=== PATIENT | male | born 1955 | race Caucasian/White ===

== ENCOUNTER → 2017-05-17 | Outpatient (CLI) | payer BC ==
--- NOTE | 2017-05-17 10:25 | XR ---
EXAMINATION TYPE: XR shoulder complete BILAT DATE OF EXAM: 05/17/2017 COMPARISON: NONE HISTORY: Pain TECHNIQUE: Three views are submitted bilaterally. FINDINGS: The osseous structures are intact. There is no acute fracture or dislocation. The AC joint is maint ained. Calcified granuloma right upper lobe. Mild narrowing of the glenohumeral joint bilaterally. IMPRESSION: 1. Arthropathy of the glenohumeral joint bilaterally consider follow-up MRI. 2. Right upper lobe calcified granuloma..
== END | disposition home or self-care (01) ==
LOC: RADXRYALE 10:02
PROVIDERS: ATTEND Family Medicine
DX: M12.9 Arthropathy, unspecified (principal)

== ENCOUNTER 2017-11-04 18:05 | Emergency (ER) | payer BC ==
--- NOTE | 2017-11-04 19:36 | ED ---
General Adult HPI - General Chief complaint: Skin/Abscess/Foreign Body Stated complaint: abcess on elbow Time Seen by Provider: 11/04/17 19:26 Source: patient, family, RN notes reviewed Mode of arrival: ambulatory Limitations: no limitations - History of Present Illness Initial comments: 62-year-old male presents to the emergency department for a chief complaint of right elbow pain 2 days. Patient noticed the pain yesterday and denies any injuries. Patient states it is warm and red, so he became concerned. Patient denies any fevers or chills at home. Patient denies this ever happening before. Patient has no other complaints at this time including shortness of breath, chest pain, abdominal pain, nausea or vomiting, headache, or visual changes. - Related Data Home Medications Medication Instructions Recorded Confirmed Acetaminophen [Tylenol] 2,000 mg PO Q4-6H PRN 11/04/17 11/04/17 Celecoxib [CeleBREX] 100 mg PO BID 11/04/17 11/04/17 Pravastatin Sodium [Pravachol] 40 mg PO DAILY 11/04/17 11/04/17 amLODIPine BESYLATE/BENAZEPRIL 1 cap PO DAILY 11/04/17 11/04/17 [Lotrel 10-20 mg Capsule] Previous Rx's Medication Instructions Recorded Amoxicillin/Potassium Clav 1 tab PO Q12HR #20 tab 11/04/17 [Augmentin Xr 1,000-62.5 Tab] Allergies Allergy/AdvReac Type Severity Reaction Status Date / Time No Known Allergies Allergy Verified 11/04/17 20:03 Review of Systems ROS Statement: Those systems with pertinent positive or pertinent negative responses have been documented in the HPI. ROS Other: All systems not noted in ROS Statement are negative. Past Medical History Past Medical History: Hyperlipidemia, Hypertension, Osteoarthritis (OA) History of Any Multi-Drug Resistant Organisms: None Reported Past Surgical History: Hernia Repair Past Psychological History: No Psychological Hx Reported Smoking Status: Former smoker Past Alcohol Use History: Occasional Past Drug Use History: None Reported General Exam Limitations: no limitations General appearance: alert, in no apparent distress Head exam: Present: atraumatic, normocephalic, normal inspection Eye exam: Present: normal appearance, PERRL, EOMI. Absent: scleral icterus, conjunctival injection, periorbital swelling ENT exam: Present: normal exam, mucous membranes moist Neck exam: Present: normal inspection, full ROM. Absent: tenderness, meningismus, lymphadenopathy Respiratory exam: Present: normal lung sounds bilaterally. Absent: respiratory distress, wheezes, rales, rhonchi, stridor Cardiovascular Exam: Present: regular rate, normal rhythm, normal heart sounds. Absent: systolic murmur, diastolic murmur, rubs, gallop, clicks Extremities exam: Present: full ROM (Full range of motion of the right elbow), tenderness (Tenderness to the olecranon of the right elbow. ), normal capillary refill (Refill less than 2 seconds in the right upper extremity and radial pulse 2+), joint swelling (Patient has mild swelling over the olecranon of the right elbow, with erythema about 4 cm x 4 cm), other (Sensation intact in the right upper extremity) Course Vital Signs 11/04/17 18:35 Temperature 98.8 F Pulse Rate 76 Respiratory 16 Rate Blood Pressure 136/82 O2 Sat by Pulse 98 Oximetry Medical Decision Making - Medical Decision Making 62-year-old male presents to the emergency determine for erythematous right elbow 2 days. Patient noticed it yesterday morning. He states it is warm to touch. On exam patient does have a small break in the skin over the right elbow with surrounding erythema and warmth. X-ray did show soft tissue swelling could not exclude bursitis. I did attempt to aspirate and no fluid was able to be obtained for culture. Patient likely has a cellulitis. Patient will be started on Augmentin. He does have an appointment with primary care in the next few days which he will follow-up at. He will return if he has any worsening symptoms such as spreading redness streaking redness or fevers which he agrees with. Disposition Clinical Impression: Cellulitis, Bursitis Disposition: HOME SELF-CARE Condition: Good Instructions: Cellulitis (ED) Additional Instructions: Please take antibiotic as directed. Please follow-up with primary care in 1-2 days. Return to the emergency department if you have any worsening symptoms such as spreading redness, streaking redness, fever, or increased pain. Prescriptions: Amoxicillin/Potassium Clav [Augmentin Xr 1,000-62.5 Tab] 1 tab PO Q12HR #20 tab Is patient prescribed a controlled substance at d/c from ED?: No Referrals: Moreno Vasques DO [Primary Care Provider] - 1-2 days Time of Disposition: 20:54
--- NOTE | 2017-11-04 20:00 | XR ---
EXAMINATION TYPE: XR elbow complete RT DATE OF EXAM: 11/04/2017 COMPARISON: NONE HISTORY: Elbow pain TECHNIQUE: 3 views FINDINGS: I see no fracture nor dislocation. There are soft tissue swelling over the olecranon proces s of the ulna. There is no sign of joint effusion. IMPRESSION: Soft tissue swelling. This could relate to olecranon bursitis.
[2017-11-04] MEDS ORDERED: AMOXIC-POT CLAV 875MG STARTER 2 EACH TABLET PO STA (20:49)
[2017-11-04 21:04] VITALS: BP 127/85; PULSE 92; RESP 20; TEMP 99
== END 2017-11-04 21:04 | disposition home or self-care (01) ==
LOC: EC 18:05
DX: L03.113 Cellulitis of right upper limb (principal); M70.32 Other bursitis of elbow, left elbow; E78.5 Hyperlipidemia, unspecified; I10 Essential (primary) hypertension; M19.90 Unspecified osteoarthritis, unspecified site; Z87.891 Personal history of nicotine dependence; Z79.1 Long term (current) use of non-steroidal anti-inflammatories (NSAID); Z79.899 Other long term (current) drug therapy
CPT/HCPCS: 10160; 99283

== ENCOUNTER 2018-10-21 13:17 | Day surgery (SDC) | payer BC ==
[2018-10-19 17:46] VITALS: BMI 26.4
[~2018-10-21 13:17] MED LIST: LACTATED RINGERS 1,000 ML IV SCH
[2018-10-21 13:39] VITALS: RESP 16; TEMP 97.6
[2018-10-21] MEDS ORDERED: LIDOCAINE 1% 20 ML VIAL (10MG/ML) FOR IV START INTRADERMA ONE (13:42)
[2018-10-21] MEDS ORDERED: PROPOFOL 10 MG/ML 20 ML VIAL IV ONE (14:25)
--- NOTE | 2018-10-21 14:48 | P.PCN ---
Date of Procedure: 10/21/18 Procedure(s) Performed: BRIEF HISTORY: Patient is a 63-year-old pleasant, male scheduled for an elective colonoscopy as a part of screening for colorectal neoplasia. PROCEDURE PERFORMED: Colonoscopy with snare polypectomy. PREOPERATIVE DIAGNOSIS: Screening for colon cancer. IV sedation per Anesthesia. PROCEDURE: After informed consent was obtained, the patient, was brought into the endoscopy unit. IV sedation was administered by Anesthesia under continuous monitoring. Digital rectal examination was normal. Initially the Olympus CF-160 flexible video colonoscope was then inserted in the rectum, gradually advanced into the cecum without any difficulty. Careful examination was performed as the scope was gradually being withdrawn. Ileocecal valve and the appendiceal orifice were visualized and appeared normal. Prep was excellent. Mucosa of the cecum, ascending colon, transverse colon, descending colon, appeared normal. In the sigmoid colon there was a 1.5 cm pedunculated polyp removed by snare polypectomy. There was another 1 cm rectosigmoid polyp that was removed by snare polypectomy. Rest of the sigmoid colon, and rectum appeared normal. Retroflexion was performed in the rectum and no lesions were seen. The patient tolerated the procedure well. IMPRESSION: 1.5 cm pedunculated sigmoid colon polyp serous posterior polypectomy 1 cm pedunculated rectosigmoid polyp status post snare polypectomy RECOMMENDATIONS: Findings of this examination were discussed with the patient a s well as his family. He was advised to follow with the biopsy results. If the biopsy shows an adenoma, he can have a repeat colonoscopy in 3 years.
[2018-10-21 15:23] VITALS: BP 132/89; PULSE 89
== END 2018-10-21 15:25 | disposition home or self-care (01) ==
LOC: ORWHC2ENDO 13:17
PROVIDERS: ATTEND Internal Medicine Gastroenterology
DX: Z12.11 Encounter for screening for malignant neoplasm of colon (principal); D12.5 Benign neoplasm of sigmoid colon; D12.8 Benign neoplasm of rectum; I10 Essential (primary) hypertension; E78.5 Hyperlipidemia, unspecified; M19.90 Unspecified osteoarthritis, unspecified site; Z87.891 Personal history of nicotine dependence; Z79.899 Other long term (current) drug therapy
CPT/HCPCS: 45385; 88305; J2704

== ENCOUNTER → 2022-04-09 | Outpatient (CLI) | payer MEDICARE ==
--- NOTE | 2022-04-09 11:42 | US ---
EXAMINATION TYPE: US abdomen complete DATE OF EXAM: 04/09/2022 COMPARISON: NONE CLINICAL HISTORY: R74.01 elevated liver levels. Elevated liver enzymes. TECHNIQUE: Multiple sonographic images of the abdomen are obtained. FINDINGS: EXAM MEASUREMENTS: Liver Length: 14.2 cm Gallbladder Wall: .3 cm CBD: .7 cm Spleen: 11.6 cm Right Kidney: 9.3 x 5.4 x 4.2 cm Left Kidney: 10.2 x 5.5 x 4.2 cm CARTON INSPECTOR NOTES: Pancreas: Obscured by bowel gas Liver: Increased attenuation Gallbladder: Low level echoes visualized question sludge. Evidence for sonographic Avila's sign: No CBD: wnl Spleen: wnl Right Kidney: wnl Left Kidney: Anechoic area present mid pole 2.0 x 2.1 x 2.2 cm. Upper IVC: wnl Abd Aorta: wnl The liver is homogenous. The intrahepatic portion of the IVC and proximal abdominal aorta are within normal limits. There is no evidence of cholelithiasis. Common bile duct is unremarkable. The visu alized portions of the pancreas are homogenous. The spleen is unremarkable. Kidneys are symmetric a nd free of hydronephrosis. No renal solid masses are seen. IMPRESSION: 1. Hepatic steatosis. 2. Biliary sludge. 3. Left renal parapelvic cyst.
== END | disposition home or self-care (01) ==
LOC: RADUSWWP 10:44
PROVIDERS: ATTEND Family Medicine
DX: K76.0 Fatty (change of) liver, not elsewhere classified (principal); N28.1 Cyst of kidney, acquired; K83.8 Other specified diseases of biliary tract; R74.01 Elevation of levels of liver transaminase levels
CPT/HCPCS: 76700

== ENCOUNTER → 2022-07-28 | Outpatient (CLI) | payer MEDICARE ==
--- NOTE | 2022-07-28 15:47 | XR ---
EXAMINATION TYPE: XR chest 2V DATE OF EXAM: 07/28/2022 COMPARISON: None HISTORY: 67-year-old male R051, C250 ACUTE COUGH, MALIGNANT NEOPLASM TECHNIQUE: Frontal and lateral views FINDINGS: The cardiomediastinal silhouette, aorta, and pulmonary vasculature are within normal limits. Some str jessica left basilar atelectasis. Otherwise, lungs and pleural spaces are clear. Tiny calcified granulom a periphery of the right upper lobe. IMPRESSION: No acute cardiopulmonary process.
== END | disposition home or self-care (01) ==
LOC: RADXRYALE 11:07
PROVIDERS: ATTEND Family Medicine
DX: C25.0 Malignant neoplasm of head of pancreas (principal); R05.1 Acute cough
CPT/HCPCS: 71046

== ENCOUNTER 2022-08-24 10:15 | Emergency (ER) | payer MEDICARE ==
[2022-08-24] MEDS ORDERED: ACETAMINOPHEN TAB 500 MG TAB PO STA (10:54)
[2022-08-24] MEDS ORDERED: SODIUM CHLORIDE 0.9% 1,000 ML IV STA (10:54)
--- NOTE | 2022-08-24 11:03 | ED ---
General Adult HPI - General Chief complaint: Fever Stated complaint: Fever Time Seen by Provider: 08/24/22 10:53 Source: patient, family, RN notes reviewed, old records reviewed Mode of arrival: ambulatory Limitations: no limitations - History of Present Illness Initial comments: 67-year-old male presents for evaluation of fever. Patient is currently on chemotherapy for pancreatic cancer. He's had fever over the past 24-48 hours. Patient denies upper respiratory symptoms. Denies abdominal pain. He's had some minimal diarrhea and minimal cough. Patient does not have a Mediport. - Related Data Home Medications Medication Instructions Recorded Confirmed Pravastatin Sodium [Pravachol] 40 mg PO HS 11/04/17 08/24/22 amLODIPine BESYLATE/BENAZEPRIL 1 cap PO DAILY 11/04/17 08/24/22 [Lotrel 10-20 mg Capsule] Previous Rx's Medication Instructions Recorded Cephalexin [Keflex] 500 mg PO QID 10 Days #40 cap 08/24/22 Allergies Allergy/AdvReac Type Severity Reaction Status Date / Time No Known Allergies Allergy Verified 08/24/22 12:18 Review of Systems ROS Statement: Those systems with pertinent positive or pertinent negative responses have been documented in the HPI. ROS Other: All systems not noted in ROS Statement are negative. Past Medical History Past Medical History: Cancer, Hyperlipidemia, Hypertension, Osteoarthritis (OA) Additional Past Medical History / Comment(s): torn bicep, positive cologard, pancreatic CA History of Any Multi-Drug Resistant Organisms: None Reported Past Surgical History: Hernia Repair, Tonsillectomy Past Anesthesia/Blood Transfusion Reactions: No Reported Reaction Past Psychological History: No Psychological Hx Reported Smoking Status: Never smoker Past Alcohol Use History: None Reported Past Drug Use History: None Reported - Past Family History Mother Family Medical History: No Reported History General Exam Limitations: no limitations General appearance: alert, in no apparent distress Head exam: Present: atraumatic, normocephalic Eye exam: Present: normal appearance, PERRL ENT exam: Present: normal exam Neck exam: Present: normal inspection. Absent: tenderness, meningismus Respiratory exam: Present: normal lung sounds bilaterally, respiratory distress Cardiovascular Exam: Present: regular rate, normal rhythm GI/Abdominal exam: Present: soft. Absent: distended, tenderness, guarding Extremities exam: Present: normal inspection, normal capillary refill. Absent: pedal edema Neurological exam: Present: alert, oriented X3, CN II-XII intact. Absent: motor sensory deficit Psychiatric exam: Present: normal affect, normal mood Skin exam: Present: warm, dry Course Vital Signs 08/24/22 08/24/22 08/24/22 10:38 12:20 13:05 Temperature 97.6 F 97.8 F 98.8 F Pulse Rate 103 H 86 Respiratory 18 17 Rate Blood Pressure 87/60 91/62 O2 Sat by Pulse 99 96 Oximetry 08/24/22 14:18 Temperature Pulse Rate 92 Respiratory 18 Rate Blood Pressure 94/67 O2 Sat by Pulse 98 Oximetry Medical Decision Making - Medical Decision Making Was pt. sent in by a medical professional or institution (, PA, BIOMEDICAL TECHNICIAN, urgent care, hospital, or [facility]...) When possible be specific @ -No Did you speak to anyone other than the patient for history (EMS, parent, family, police, friend...)? What history was obtained from this source @ -No Did you review nursing and triage notes (agree or disagree)? Why? @ -I reviewed and agree with nursing and triage notes Were old charts reviewed (outside hosp., previous admission, EMS record, old EKG, old radiological studies, urgent care reports/EKG's, [facility] records)? Report findings @ -No old charts were reviewed Differential Diagnosis (chest pain, altered mental status, abdominal pain women, abdominal pain men, vaginal bleeding, weakness, fever, dyspnea, syncope, headache, dizziness, GI bleed, back pain, seizure, CVA, palpatations, mental health, musculoskeletal)? @ Differential Fever: Pneumonia, viral URI, endocarditis, myocarditis, pericarditis, otitis, sinusitis, peritonsillar Abscess, retropharyngeal Abscess, epiglottitis, peritonitis, appendicitis, Jennie cystitis, diverticulitis, hepatitis, colitis, UTI, PID, TOA, pyelonephritis, prostatitis, epididymitis, meningitis, encephalitis, pulmonary embolism, CVA, thyroid storm, pancreatitis, adrenal crisis, cavernous sinus thrombosis, this is not meant to be an all-inclusive list. EKG interpreted by me (3pts min.). @ -As above X-rays interpreted by me (1pt min.). @ Chest x-ray negative for focal pneumonia CT interpreted by me (1pt min.). @ -None done U/S interpreted by me (1pt. min.). @ -None done What testing was considered but not performed or refused? (CT, X-rays, U/S, labs)? Why? @ -None What meds were considered but not given or refused? Why? @ -None Did you discuss the management of the patient with other professionals (professionals i.e. Dr., PA, BIOMEDICAL TECHNICIAN, lab, RT, psych nurse, director of social services, telephone maintainer, teacher, global chief creative officer, case management director)? Give summary @ -[Dr. Peralta Was smoking cessation discussed for >3mins.? @ -No Was critical care preformed (if so, how long)? @ -No Were there social determinants of health that impacted care today? How? (Andrew elessness, low income, unemployed, alcoholism, drug addiction, transportation, low edu. Level, literacy, decrease access to med. care, residential, rehab)? @ -No Was there de-escalation of care discussed even if they declined (Discuss DNR or withdrawal of care, Hospice)? DNR status @ -No What co-morbidities impacted this encounter? (DM, HTN, Smoking, COPD, CAD, Cancer, CVA, ARF, Chemo, Hep., AIDS, mental health diagnosis, sleep apnea, morbid obesity)? @ -[Pancreatic cancer on chemotherapy Was patient admitted / discharged? Hospital course, mention meds given and route, prescriptions, significant lab abnormalities, going to OR and other pertinent info. @ -67-year-old male presenting with fever of unknown origin on chemotherapy. Fever workup is initiated emergency department including CBC, CMP, urinalysis, viral panel, chest x-ray and blood cultures. Patient well-appearing afebrile upon arrival. He has a leukopenia without neutropenia. His viral panel is ne gative. Urinalysis is positive and urine culture is pending. Blood cultures pending. I did discuss case with Dr. Peralta who is familiar with the patient. Patient is eager for discharge and does not want wish to be admitted. Given that he is not neutropenic and that source is identified we will trial oral antibiotics. The patient was given ceftriaxone in the emergency department and will be started on Keflex awaiting culture results. His and he are given strict return parameters. Undiagnosed new problem with uncertain prognosis? @ -No Drug Therapy requiring intensive monitoring for toxicity (Heparin, Nitro, Insulin, Cardizem)? @ -No Were any procedures done? @ -No Diagnosis/symptom? @ -Fever, UTI Acute, or Chronic, or Acute on Chronic? @ -[Acute Uncomplicated (without systemic symptoms) or Complicated (systemic symptoms)? @ -default Side effects of treatment? @ -No Exacerbation, Progression, or Severe Exacerbation? @ -No Poses a threat to life or bodily function? How? (Chest pain, [place], [place], pneumonia, PE, COPD, DKA, ARF, appy, cholecystitis, CVA, Diverticulitis, Homicidal, Suicidal, threat to staff... and all critical care pts) @ -[Yes, progression to sepsis - Lab Data Result diagrams: 08/24/22 10:54 08/24/22 10:54 Lab Results 08/24/22 08/24/22 08/24/22 Range/Units 10:54 10:54 10:54 WBC 2.9 L (3.8-10.6) k/uL RBC 3.46 L (4.30-5.90) m/uL Hgb 11.3 L (13.0-17.5) gm/dL Hct 31.5 L (39.0-53.0) % MCV 91.0 (80.0-100.0) fL MCH 32.6 (25.0-35.0) pg MCHC 35.8 (31.0-37.0) g/dL RDW 13.8 (11.5-15.5) % Plt Count 123 L (150-450) k/uL MPV 8.2 Neutrophils % 72 % Lymphocytes % 13 % Monocytes % 9 % Eosinophils % 2 % Basophils % 1 % Neutrophils # 2.1 (1.3-7.7) k/uL Lymphocytes # 0.4 L (1.0-4.8) k/uL Monocytes # 0.3 (0-1.0) k/uL Eosinophils # 0.1 (0-0.7) k/uL Basophils # 0.0 (0-0.2) k/uL Poikilocytosis Slight Sodium 132 L (137-145) mmol/L Potassium 4.4 (3.5-5.1) mmol/L Chloride 105 (98-107) mmol/L Carbon Dioxide 18 L (22-30) mmol/L Anion Gap 9 mmol/L BUN 26 H (9-20) mg/dL Creatinine 0.98 (0.66-1.25) mg/dL Est GFR (CKD-EPI)AfAm >90 (>60 ml/min/1.73 sqM) Est GFR (CKD-EPI)NonAf 81 (>60 ml/min/1.73 sqM) Glucose 97 (74-99) mg/dL Plasma Lactic Acid Don 1.1 (0.7-2.0) mmol/L Calcium 8.8 (8.4-10.2) mg/dL Total Bilirubin 0.9 (0.2-1.3) mg/dL AST 68 H (17-59) U/L ALT 89 H (4-49) U/L Alkaline Phosphatase 94 (38-126) U/L Total Protein 6.1 L (6.3-8.2) g/dL Albumin 3.4 L (3.5-5.0) g/dL Urine Color Urine Appearance (Clear) Urine pH (5.0-8.0) Ur Specific Bixby (1.001-1.035) Urine Protein (Negative) Urine Glucose (UA) (Negative) Urine Ketones (Negative) Urine Blood (Negative) Urine Nitrite (Negative) Urine Bilirubin (Negative) Urine Urobilinogen (<2.0) mg/dL Ur Leukocyte Esterase (Negative) Urine WBC (0-5) /hpf Ur Squamous Epith Cells (0-4) /hpf Urine Bacteria (None) /hpf Urine Mucus (None) /hpf Influenza Type A (PCR) (Not Detectd) Influenza Type B (PCR) (Not Detectd) RSV (PCR) (Not Detectd) SARS-CoV-2 (PCR) (Not Detectd) 08/24/22 08/24/22 Range/Units 11:27 11:27 WBC (3.8-10.6) k/uL RBC (4.30-5.90) m/uL Hgb (13.0-17.5) gm/dL Hct (39.0-53.0) % MCV (80.0-100.0) fL MCH (25.0-35.0) pg MCHC (31.0-37.0) g/dL RDW (11.5-15.5) % Plt Count (150-450) k/uL MPV Neutrophils % % Lymphocytes % % Monocytes % % Eosinophils % % Basophils % % Neutrophils # (1.3-7.7) k/uL Lymphocytes # (1.0-4.8) k/uL Monocytes # (0-1.0) k/uL Eosinophils # (0-0.7) k/uL Basophils # (0-0.2) k/uL Poikilocytosis Sodium (137-145) mmol/L Potassium (3.5-5.1) mmol/L Chloride (98-107) mmol/L Carbon Dioxide (22-30) mmol/L Anion Gap mmol/L BUN (9-20) mg/dL Creatinine (0.66-1.25) mg/dL Est GFR (CKD-EPI)AfAm (>60 ml/min/1.73 sqM) Est GFR (CKD-EPI)NonAf (>60 ml/min/1.73 sqM) Glucose (74-99) mg/dL Plasma Lactic Acid Don (0.7-2.0) mmol/L Calcium (8.4-10.2) mg/dL Total Bilirubin (0.2-1.3) mg/dL AST (17-59) U/L ALT (4-49) U/L Alkaline Phosphatase (38-126) U/L Total Protein (6.3-8.2) g/dL Albumin (3.5-5.0) g/dL Urine Color Yellow Urine Appearance Cloudy (Clear) Urine pH 5.5 (5.0-8.0) Ur Specific [place] 1.030 (1.001-1.035) Urine Protein Trace H (Negative) Urine Glucose (UA) Negative (Negative) Urine Ketones Negative (Negative) Urine Blood Negative (Negative) Urine Nitrite Negative (Negative) Urine Bilirubin Negative (Negative) Urine Urobilinogen <2.0 (<2.0) mg/dL Ur Leukocyte Esterase Moderate H (Negative) Urine WBC 14 H (0-5) /hpf Ur Squamous Epith Cells 2 (0-4) /hpf Urine Bacteria Many H (None) /hpf Urine Mucus Many H (None) /hpf Influenza Type A (PCR) Not Detected (Not Detectd) Influenza Type B (PCR) Not Detected (Not Detectd) RSV (PCR) Not Detected (Not Detectd) SARS-CoV-2 (PCR) Not Detected (Not Detectd) Disposition Clinical Impression: Fever, UTI (urinary tract infection) Disposition: HOME SELF-CARE Condition: Fair Instructions (If sedation given, give patient instructions): Urinary Tract Infection in Men (ED), Fever in Adults (ED) Additional Instructions: Please follow up close with Dr. Peralta, please return with any worsening or changing symptoms Prescriptions: Cephalexin [Keflex] 500 mg PO QID 10 Days #40 cap Is patient prescribed a controlled substance at d/c from ED?: No Referrals: Moreno Vasques DO [Primary Care Provider] - 1-2 days Loi Peralta MD [Family Provider] - 1-2 days Time of Disposition: 13:03
[2022-08-24 11:21] LABS: Basophils % (A) 1 %; Eosinophils # (A) 0.1 k/uL (0-0.7); Eosinophils % (A) 2 %; HCT 31.5 % (39.0-53.0); HGB 11.3 gm/dL (13.0-17.5); Lymphocytes # (A) 0.4 k/uL (1.0-4.8); Lymphocytes % (A) 13 %; MCH 32.6 pg (25.0-35.0); MCHC 35.8 g/dL (31.0-37.0); Mean Platelet Volume 8.2; Monocytes # (A) 0.3 k/uL (0-1.0); Monocytes % (A) 9 %; Neutrophils # (A) 2.1 k/uL (1.3-7.7); Neutrophils % (A) 72 %; Platelet Count 123 k/uL (150-450); Poikilocytosis Slight; RBC 3.46 m/uL (4.30-5.90); RDW 13.8 % (11.5-15.5); WBC 2.9 k/uL (3.8-10.6)
[2022-08-24 11:43] LABS: ALT 89 U/L (4-49); AST 68 U/L (17-59); African American GFR (CKD) >90 (>60 ml/min/1.73 sqM); Albumin 3.4 g/dL (3.5-5.0); Alkaline Phosphatase 94 U/L (38-126); Anion Gap 9 mmol/L; Blood Urea Nitrogen 26 mg/dL (9-20); Calcium 8.8 mg/dL (8.4-10.2); Carbon Dioxide 18 mmol/L (22-30); Chloride 105 mmol/L (98-107); Glucose 97 mg/dL (74-99); Non-African American GFR(CKD) 81 (>60 ml/min/1.73 sqM); Potassium 4.4 mmol/L (3.5-5.1); Sodium 132 mmol/L (137-145); Total Bilirubin 0.9 mg/dL (0.2-1.3); Total Protein 6.1 g/dL (6.3-8.2)
--- NOTE | 2022-08-24 11:48 | XR ---
EXAMINATION TYPE: XR chest 2V DATE OF EXAM: 08/24/2022 11:42 AM COMPARISON: Chest radiographs from 07/28/2022 TECHNIQUE: XR chest 2V Frontal and lateral views of the chest. CLINICAL INDICATION:Male, 67 years old with history of fever; FINDINGS: Lungs/Pleura: There is no evidence of pleural effusion, focal consolidation, or pneumothorax. Pulmonary vascularity: Unremarkable. Heart/mediastinum: Cardiomediastinal silhouette is unremarkable. Musculoskeletal: No acute osseous pathology. IMPRESSION: No acute cardiopulmonary disease/process.
[2022-08-24 12:12] LABS: Appearance,Urine Cloudy (Clear); Bacteria,Urine Many /hpf; Bilirubin,Urine Negative (Negative); Blood,Urine Negative (Negative); Color,Urine Yellow; Glucose,Urine (UA) Negative (Negative); Ketones,Urine Negative (Negative); Leukocyte Esterase,Urine Moderate (Negative); Mucus,Urine Many /hpf; Nitrite,Urine Negative (Negative); PH, Urine 5.5 (5.0-8.0); Protein,Urine Trace (Negative); Squamous Epithelial Cell,Urine 2 /hpf (0-4); Urobilinogen,Urine <2.0 mg/dL (<2.0); WBC,Urine 14 /hpf (0-5)
[2022-08-24] MEDS ORDERED: cefTRIAXone IN SWFI 1,000 MG/10 ML SYRINGE IVP STA (12:43)
[2022-08-24 13:06] VITALS: TEMP 98.8
[2022-08-24 14:22] VITALS: BP 94/67; PULSE 92; RESP 18
== END 2022-08-24 14:22 | disposition home or self-care (01) ==
LOC: EC 10:15
DX: R50.9 Fever, unspecified (principal); N39.0 Urinary tract infection, site not specified; E78.5 Hyperlipidemia, unspecified; I10 Essential (primary) hypertension; Z79.899 Other long term (current) drug therapy; Z20.822 Contact with and (suspected) exposure to COVID-19
CPT/HCPCS: 36415; 80053; 83605; 85025; 81001; 87040; 87086; 87077; 87186; 87636; 71046; 99284; 96374; 96361; J0696

== ENCOUNTER 2022-12-29 16:19 | Emergency (ER) | payer MEDICARE ==
--- NOTE | 2022-12-29 17:26 | ED ---
General Adult HPI - General Chief complaint: Recheck/Abnormal Lab/Rx Stated complaint: confusion-post OP Time Seen by Provider: 12/29/22 17:22 Source: patient, family, RN notes reviewed Mode of arrival: ambulatory Limitations: no limitations - History of Present Illness Initial comments: Patient is a 67 year old male who presents to the emergency department for confusion. Patient has pancreatic cancer he had a tumor removed at [facility] on 12/11 and was released on 12/19. Patient is now having confusion trouble sleeping and hearing voices. He denies any history of psychiatric illness. Denies suicidal or homicidal ideation. Patient does have muscle spasms intermittently which he has been taking Robaxin for. He is not taking any naroctic medication. No fever chills abdominal pain burning with urination diarrhea headaches patient offers no other concerns. States he is supposed to get a PET scan tomorrow. He did have a CT of his abdomen at [facility] today but doesn't know results. - Related Data Home Medications Medication Instructions Recorded Confirmed Pravastatin Sodium [Pravachol] 40 mg PO HS 11/04/17 11/02/22 amLODIPine BESYLATE/BENAZEPRIL 1 cap PO DAILY 11/04/17 11/02/22 [Lotrel 10-20 mg Capsule] Ondansetron [Zofran] 1 tab PO QID 08/31/22 11/02/22 Previous Rx's Medication Instructions Recorded Cephalexin [Keflex] 500 mg PO QID 10 Days #40 cap 08/24/22 Allergies Allergy/AdvReac Type Severity Reaction Status Date / Time No Known Allergies Allergy Verified 12/29/22 16:31 Review of Systems ROS Statement: Those systems with pertinent positive or pertinent negative responses have been documented in the HPI. ROS Other: All systems not noted in ROS Statement are negative. Past Medical History Past Medical History: Cancer, Hyperlipidemia, Hypertension, Osteoarthritis (OA) Additional Past Medical History / Comment(s): torn bicep, positive cologard, pancreatic CA History of Any Multi-Drug Resistant Organisms: None Reported Past Surgical History: Hernia Repair, Tonsillectomy Past Anesthesia/Blood Transfusion Reactions: No Reported Reaction Past Psychological History: No Psychological Hx Reported Smoking Status: Never smoker Past Alcohol Use History: None Reported Past Drug Use History: None Reported - Past Family History Mother Family Medical History: No Reported History General Exam - General Exam Comments Initial Comments: Visual Physical Exam Vital signs reviewed General: Well-appearing, nontoxic, no acute distress. Head: Normocephalic, atraumatic Eyes: PERRLA, EOMI ENT: Airway patent Chest: Nonlabored breathing Skin: No visual rash, normal skin tone Neuro: Alert and oriented 3 Musculoskeletal: No gross abnormalities Limitations: no limitations General appearance: alert Head exam: Present: atraumatic, normocephalic, normal inspection Eye exam: Present: normal appearance, PERRL, EOMI. Absent: scleral icterus, conjunctival injection, periorbital swelling Respiratory exam: Present: normal lung sounds bilaterally. Absent: respiratory distress, wheezes, rales, rhonchi, stridor Cardiovascular Exam: Present: regular rate, normal rhythm, normal heart sounds. Absent: systolic murmur, diastolic murmur, rubs, gallop, clicks GI/Abdominal exam: Present: soft, normal bowel sounds, other (incision healing nicely, drain in place no surrounding erythema or warmth tenderness drainage). Absent: distended, tenderness, guarding, rebound, rigid Extremities exam: Present: normal inspection, full ROM, normal capillary refill Neurological exam: Present: alert, oriented X3 Expanded Cranial nerves: EOM's Intact: Normal, Facial Sensation: Normal, Facial Palsy with Forehead Movement: Normal, Facial Palsy without Forehead Movement: Normal Cerebellar function: Finger to Nose: Normal, Heel to Ferro: Normal Sensory exam: Upper Extremity Light Touch: Normal, Lower Extremity Temperature: Normal Motor strength exam: RUE: 5, LUE: 5, RLE: 5, LLE: 5 Psychiatric exam: Present: normal affect, normal mood Skin exam: Present: warm, dry, intact, normal color. Absent: rash Course Vital Signs 12/29/22 12/29/22 16:28 18:54 Temperature 98.1 F Pulse Rate 97 88 Respiratory 18 18 Rate Blood Pressure 120/79 121/87 O2 Sat by Pulse 98 99 Oximetry Medical Decision Making - Medical Decision Making I performed the QuickNote portion of this chart - Polina Gray PA-C EKG taken at 17:05, interpreted by myself Sinus rhythm Ventricular rate 87, MI interval 144, QRS duration 87, QTC 393 Was pt. sent in by a medical professional or institution (VENKAT Cruz, AIR HAMMER OPERATOR, urgent care, hospital, or half-way...) When possible be specific @ -No Did you speak to anyone other than the patient for history (EMS, parent, family, police, friend...)? What history was obtained from this source @ - helps provide history Did you review nursing and triage notes (agree or disagree)? Why? @ -I reviewed and agree with nursing and triage notes Were old charts reviewed (outside hosp., previous admission, EMS record, old EKG, old radiological studies, urgent care reports/EKG's, half-way records)? Report findings @ -No old charts were reviewed Differential Diagnosis (chest pain, altered mental status, abdominal pain women, abdominal pain men, vaginal bleeding, weakness, fever, dyspnea, syncope, headache, dizziness, GI bleed, back pain, seizure, CVA, palpatations, mental health)? @ -Differential Altered Mental Status: Hypoglycemia, DKA, hypercapnia, ETOH, overdose, CO poisoning, trauma, myxedema coma, HTN encephalopathy, infection, encephalitis, psychosis, intercranial hemorrhage, hepatic encephalopathy, meningitis, CVA, this is not meant to be an all-inclusive list EKG interpreted by me (3pts min.). @ -As above X-rays interpreted by me (1pt min.). @ -[No acute cardiopulmonary process CT interpreted by me (1pt min.). @ -None done U/S interpreted by me (1pt. min.). @ -None done What testing was considered but not performed or refused? (CT, X-rays, U/S, labs)? Why? @ -[Declined CT imaging of the brain state patient had "normal cancer markers today" What meds were considered but not given or refused? Why? @ -None Did you discuss the management of the patient with other professionals (professionals i.e. , PA, AIR HAMMER OPERATOR, lab, RT, psych nurse, home health care social worker, bonding and composite fabricator, teacher, global chief experience officer, spring encaser)? Give summary @ -No Was smoking cessation discussed for >3mins.? @ -No Was critical care preformed (if so, how long)? @ -No Were there social determinants of health that impacted care today? How? (Homelessness, low income, unemployed, alcoholism, drug addiction, transportation, low edu. Level, literacy, decrease access to med. care, fdc, rehab)? @ -No Was there de-escalation of care discussed even if they declined (Discuss DNR or withdrawal of care, Hospice)? DNR status @ -No What co-morbidities impacted this encounter? (DM, HTN, Smoking, COPD, CAD, Cancer, CVA, ARF, Chemo, Hep., AIDS, mental health diagnosis, sleep apnea, morbid obesity)? @ -None Was patient admitted / discharged? Hospital course, mention meds given and route, prescriptions, significant lab abnormalities, going to OR and other pertinent info. @ -67-year-old pancreatic cancer patient presenting for confusion, trouble sleeping, auditory hallucinations. Patient is alert and oriented x 4 he answers questions appropriately. The abdomen is soft and nontender. Laboratory studies are relatively unremarkable. Urinalysis reveals 28 RBCs no obvious infection. X-ray shows no acute cardiopulmonary process. There is no neurological deficit given acute onset of symptoms I did recommend CT of the brain as patient did not have CT brain imaging today before. Patient and family declined. Patient is in stable medical condition for discharge. Did recommend melatonin. Patient to follow up with oncologist. Undiagnosed new problem with uncertain prognosis? @ -No Drug Therapy requiring intensive monitoring for toxicity (Heparin, Nitro, Insulin, Cardizem)? @ -No Were any procedures done? @ -No Diagnosis/symptom? @ -confusion, auditory hallucinations, trouble sleeping Acute, or Chronic, or Acute on Chronic? @ -default Uncomplicated (without systemic symptoms) or Complicated (systemic symptoms)? @ -default Side effects of treatment? @ -No Exacerbation, Progression, or Severe Exacerbation? @ -No Poses a threat to life or bodily function? How? (Chest pain, [place], [place], pneumonia, PE, COPD, DKA, ARF, appy, cholecystitis, CVA, Diverticulitis, Homicidal, Suicidal, threat to staff... and all critical care pts) @ -No Dr. Perez is my attending - Lab Data Result diagrams: 12/29/22 17:02 12/29/22 17:02 Lab Results 12/29/22 12/29/22 12/29/22 Range/Units 17:02 17:02 17:02 WBC 6.6 (3.8-10.6) k/uL RBC 3.55 L (4.30-5.90) m/uL Hgb 10.2 L (13.0-17.5) gm/dL Hct 31.0 L (39.0-53.0) % MCV 87.5 D (80.0-100.0) fL MCH 28.8 (25.0-35.0) pg MCHC 32.9 (31.0-37.0) g/dL RDW 14.8 (11.5-15.5) % Plt Count 458 H D (150-450) k/uL MPV 7.4 Neutrophils % 67 % Lymphocytes % 18 % Monocytes % 6 % Eosinophils % 9 % Basophils % 0 % Neutrophils # 4.4 (1.3-7.7) k/uL Lymphocytes # 1.2 (1.0-4.8) k/uL Monocytes # 0.4 (0-1.0) k/uL Eosinophils # 0.6 (0-0.7) k/uL Basophils # 0.0 (0-0.2) k/uL Hypochromasia Slight Sodium 136 L (137-145) mmol/L Potassium 4.4 (3.5-5.1) mmol/L Chloride 104 (98-107) mmol/L Carbon Dioxide 20 L (22-30) mmol/L Anion Gap 12 mmol/L BUN 14 (9-20) mg/dL Creatinine 0.87 (0.66-1.25) mg/dL Est GFR (CKD-EPI)AfAm >90 (>60 ml/min/1.73 sqM) Est GFR (CKD-EPI)NonAf >90 (>60 ml/min/1.73 sqM) Glucose 124 H (74-99) mg/dL Plasma Lactic Acid Don 1.7 (0.7-2.0) mmol/L Calcium 9.1 (8.4-10.2) mg/dL Total Bilirubin 0.5 (0.2-1.3) mg/dL AST 36 (17-59) U/L ALT 42 (4-49) U/L Alkaline Phosphatase 204 H (38-126) U/L Troponin I (0.000-0.034) ng/mL Total Protein 7.1 (6.3-8.2) g/dL Albumin 3.5 (3.5-5.0) g/dL Urine Color Urine Appearance (Clear) Urine pH (5.0-8.0) Ur Specific [place] (1.001-1.035) Urine Protein (Negative) Urine Glucose (UA) (Negative) Urine Ketones (Negative) Urine Blood (Negative) Urine Nitrite (Negative) Urine Bilirubin (Negative) Urine Urobilinogen (<2.0) mg/dL Ur Leukocyte Esterase (Negative) Urine RBC (0-5) /hpf Urine WBC (0-5) /hpf Ur Squamous Epith Cells (0-4) /hpf Urine Bacteria (None) /hpf Urine Mucus (None) /hpf 12/29/22 12/29/22 Range/Units 17:02 18:43 WBC (3.8-10.6) k/uL RBC (4.30-5.90) m/uL Hgb (13.0-17.5) gm/dL Hct (39.0-53.0) % MCV (80.0-100.0) fL MCH (25.0-35.0) pg MCHC (31.0-37.0) g/dL RDW (11.5-15.5) % Plt Count (150-450) k/uL MPV Neutrophils % % Lymphocytes % % Monocytes % % Eosinophils % % Basophils % % Neutrophils # (1.3-7.7) k/uL Lymphocytes # (1.0-4.8) k/uL Monocytes # (0-1.0) k/uL Eosinophils # (0-0.7) k/uL Basophils # (0-0.2) k/uL Hypochromasia Sodium (137-145) mmol/L Potassium (3.5-5.1) mmol/L Chloride (98-107) mmol/L Carbon Dioxide (22-30) mmol/L Anion Gap mmol/L BUN (9-20) mg/dL Creatinine (0.66-1.25) mg/dL Est GFR (CKD-EPI)AfAm (>60 ml/min/1.73 sqM) Est GFR (CKD-EPI)NonAf (>60 ml/min/1.73 sqM) Glucose (74-99) mg/dL Plasma Lactic Acid Don (0.7-2.0) mmol/L Calcium (8.4-10.2) mg/dL Total Bilirubin (0.2-1.3) mg/dL AST (17-59) U/L ALT (4-49) U/L Alkaline Phosphatase (38-126) U/L Troponin I <0.012 (0.000-0.034) ng/mL Total Protein (6.3-8.2) g/dL Albumin (3.5-5.0) g/dL Urine Color Yellow Urine Appearance Slightly Cloudy (Clear) Urine pH 5.5 (5.0-8.0) Ur Specific [place] >1.050 H (1.001-1.035) Urine Protein Trace (Negative) Urine Glucose (UA) Negative (Negative) Urine Ketones Negative (Negative) Urine Blood Small (Negative) Urine Nitrite Negative (Negative) Urine Bilirubin Negative (Negative) Urine Urobilinogen 2.0 (<2.0) mg/dL Ur Leukocyte Esterase Moderate (Negative) Urine RBC 28 H (0-5) /hpf Urine WBC 5 (0-5) /hpf Ur Squamous Epith Cells <1 (0-4) /hpf Urine Bacteria Rare H (None) /hpf Urine Mucus Rare H (None) /hpf Disposition Clinical Impression: Trouble in sleeping, Confusion, Auditory hallucination Disposition: HOME SELF-CARE Condition: Good Instructions (If sedation given, give patient instructions): Altered Mental Status (ED) Additional Instructions: Increase fluid intake Follow-up with oncologist in 1-2 days. Return to the emergency department if you experience new, concerning, or worsening symptoms. Is patient prescribed a controlled substance at d/c from ED?: No Referrals: Moreno Vasques DO [Primary Care Provider] - 1-2 days
[2022-12-29 17:36] LABS: Basophils % (A) 0 %; Eosinophils # (A) 0.6 k/uL (0-0.7); Eosinophils % (A) 9 %; HGB 10.2 gm/dL (13.0-17.5); Hypochromasia Slight; Lymphocytes # (A) 1.2 k/uL (1.0-4.8); Lymphocytes % (A) 18 %; MCH 28.8 pg (25.0-35.0); MCHC 32.9 g/dL (31.0-37.0); Mean Platelet Volume 7.4; Monocytes # (A) 0.4 k/uL (0-1.0); Monocytes % (A) 6 %; Neutrophils # (A) 4.4 k/uL (1.3-7.7); Neutrophils % (A) 67 %; RBC 3.55 m/uL (4.30-5.90); RDW 14.8 % (11.5-15.5); WBC 6.6 k/uL (3.8-10.6)
[2022-12-29 17:49] LABS: ALT 42 U/L (4-49); AST 36 U/L (17-59); African American GFR (CKD) >90 (>60 ml/min/1.73 sqM); Albumin 3.5 g/dL (3.5-5.0); Alkaline Phosphatase 204 U/L (38-126); Anion Gap 12 mmol/L; Blood Urea Nitrogen 14 mg/dL (9-20); Calcium 9.1 mg/dL (8.4-10.2); Carbon Dioxide 20 mmol/L (22-30); Chloride 104 mmol/L (98-107); Glucose 124 mg/dL (74-99); Non-African American GFR(CKD) >90 (>60 ml/min/1.73 sqM); Potassium 4.4 mmol/L (3.5-5.1); Sodium 136 mmol/L (137-145); Total Bilirubin 0.5 mg/dL (0.2-1.3); Total Protein 7.1 g/dL (6.3-8.2)
[2022-12-29 17:53] LABS: MCV 87.5 fL (80.0-100.0); Platelet Count 458 k/uL (150-450)
--- NOTE | 2022-12-29 18:24 | XR ---
EXAMINATION TYPE: XR chest 2V DATE OF EXAM: 12/29/2022 5:58 PM CLINICAL INDICATION:Male, 67 years old with history of Weakness; COMPARISON: Chest radiographs from 08/24/2022 TECHNIQUE: XR chest 2V Frontal and lateral views of the chest. FINDINGS: Lungs/Pleura: There is no evidence of pleural effusion, focal consolidation, or pneumothorax. Pulmonary vascularity: Unremarkable. Heart/mediastinum: Cardiomediastinal silhouette is unremarkable. Musculoskeletal: No acute osseous pathology. IMPRESSION: No acute cardiopulmonary disease/process.
[2022-12-29 18:59] LABS: Appearance,Urine Slightly Cloudy (Clear); Color,Urine Yellow
[2022-12-29 19:00] LABS: Bilirubin,Urine Negative (Negative); Blood,Urine Small (Negative); Glucose,Urine (UA) Negative (Negative); Ketones,Urine Negative (Negative); Leukocyte Esterase,Urine Moderate (Negative); Nitrite,Urine Negative (Negative); PH, Urine 5.5 (5.0-8.0); Protein,Urine Trace (Negative)
[2022-12-29 19:02] LABS: Bacteria,Urine Rare /hpf; Mucus,Urine Rare /hpf; RBC,Urine 28 /hpf (0-5); Squamous Epithelial Cell,Urine <1 /hpf (0-4); WBC,Urine 5 /hpf (0-5)
[2022-12-29 19:27] LABS: Specific Gravity,Urine >1.050 (1.001-1.035)
[2022-12-29 20:07] VITALS: BP 117/88; PULSE 90; RESP 16; TEMP 98
== END 2022-12-29 19:54 | disposition home or self-care (01) ==
LOC: EC 16:19
DX: R41.0 Disorientation, unspecified (principal); R44.0 Auditory hallucinations; G47.00 Insomnia, unspecified; I10 Essential (primary) hypertension; E78.5 Hyperlipidemia, unspecified; Z79.899 Other long term (current) drug therapy
CPT/HCPCS: 36415; 71046; 80053; 81001; 83605; 84484; 85025; 93005; 99284

== ENCOUNTER → 2023-07-03 | Outpatient (CLI) | payer MEDICARE ==
--- NOTE | 2023-07-05 12:56 | MR ---
EXAMINATION TYPE: MR sacrum/coccyx wo/w con DATE OF EXAM: 07/03/2023 COMPARISON: CT chest abdomen and pelvis April 23, 2022 HISTORY: No prior, pancreatic CA stage 3, evaluate for mets CONTRAST: Standard multiplanar, multisequence MRI departmental protocol images were obtained without contrast a nd with 7 mL intravenous Gadavist gadolinium contrast. FINDINGS: Centered in the right aspect of the upper sacrum involving predominantly S1 vertebra with s ome extension into the S2 vertebra seen best sagittal image 15 there is heterogeneous enhancing lesio n of diminished T1 and decreased T2 signal suspicious for focal metastatic lesion despite diminished T2 signal. This measures approximately 2.5 cm AP diameter by 4.9 cm transversely by 3.6 cm craniocaud al diameter. No bony destruction or fragmentation seen. No soft tissue mass noted. Remainder of the s acrum and coccyx are intact. No free fluid in the pelvis. No suspicious bowel dilatation. Normal size prostate gland is seen. IMPRESSION: New upper sacral enhancing lesion suspicious for osseous metastatic focus despite diminis hed T2 signal. Advise whole-body bone scan to assess for possible additional new osseous suspicious l esions.
== END | disposition home or self-care (01) ==
LOC: RADMRIMAIN 13:23
PROVIDERS: ATTEND Radiology Radiation Oncology
DX: C25.0 Malignant neoplasm of head of pancreas (principal)
CPT/HCPCS: 72197; A9585

== ENCOUNTER → 2023-09-30 | Outpatient (CLI) | payer MEDICARE ==
--- NOTE | 2023-10-06 10:57 | PE ---
EXAMINATION TYPE: PET CT fusion skull to thigh DATE OF EXAM: 09/30/2023 CLINICAL INDICATION:Male, 68 years old with history of C25.0 MALIGNANT NEOPLASM OF HEAD OF PANCREAS; TECHNIQUE: Following the intravenous administration of 11.29 mCi of F-18 FDG, whole body images are performed from the skull base to the midthigh. Images are reviewed on the computer in the coronal, axial, and sagittal planes. Reconstructed rotating images are created on independent workstation and reviewed on the computer. A non-contrast CT is performed in conjunction with the PET scan. Glucose level 92 mg/dL CT DLP: 302 mGycm, Automated exposure control for dose reduction was used. COMPARISON: CT 04/23/2022, PET/CT 06/07/2023, MRI: None FINDINGS: Mediastinal SUV mean is 2.0. Hepatic parenchyma SUV mean is 2.5. SKULL BASE AND NECK: No suspicious radiotracer activity. CHEST, MEDIASTINUM, AND HILAR REGION: No suspicious radiotracer activity. ABDOMEN AND PELVIS: Evaluation of the abdomen and pelvis structures limited due to lack of IV and oral contrast with luis cent density structures throughout the abdomen. * Upper abdominal FDG activity near the pancreatic neck increased measuring Max SUV 7.5. * Lymph node just anterior to the spine max SUV 5.0. * Focus seen within the liver on prior is no longer visualized more pancreatic body uptake seen on p rior is not visualized previously max SUV 5.5. MUSCULOSKELETAL STRUCTURES: Decrease in FDG activity within the sacrum max SUV 3.5, previously 5.1. This is more sclerotic on tod ay's exam. OTHER CT: Atherosclerosis of the arterial vasculature and coronary arteries are mild. Partially calci fied right 10 R lymph node. Calcifications in the upper abdomen with post surgical changes to the gas tric lumen. Scattered colonic diverticula. IMPRESSION: * Increased FDG activity in the pancreatic neck region as well as lymph nodes in the retroperitoneum concerning for progression of disease. This not fully seen on prior. * Sclerotic area in the sacrum has mildly decreased FDG activity compared to prior as well as increa sed sclerosis suggesting treatment changes..
== END | disposition home or self-care (01) ==
LOC: RADPETMAIN 11:21
PROVIDERS: ATTEND Internal Medicine
DX: C25.0 Malignant neoplasm of head of pancreas (principal); G95.89 Other specified diseases of spinal cord; R94.8 Abnormal results of function studies of other organs and systems; R59.0 Localized enlarged lymph nodes
CPT/HCPCS: 78815; A9552

== ENCOUNTER 2023-10-03 11:13 | Observation (INO) | payer MEDICARE ==
[2023-10-03] MEDS: TOPICAL SKIN ADHESIVE 1 EACH AMP TOPICAL ONE (11:41)
--- NOTE | 2023-10-03 11:52 | ED ---
General Adult HPI - General Chief complaint: Syncope Stated complaint: Syncope Time Seen by Provider: 10/03/23 11:29 Source: patient, family, RN notes reviewed Mode of arrival: EMS Limitations: no limitations - History of Present Illness Initial comments: Patient is a 68-year-old male present to the emergency department with syncopal episode. Episode occurred just prior to arrival. Patient was walking outside and it is reported that it was warm out. Patient was not feeling well and fell. Patient did sustain laceration to the right forehead. Patient does have history of pancreatic cancer with chemotherapy followed by Whipple procedure. 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 Patient does not recall the episode. Family states patient seems slightly confused. Patient only has mild headache in the area of injury. Patient states he does not feel confused. No neck or back pain. No chest pain or dyspnea. No abdominal pain. - Related Data Home Medications Medication Instructions Recorded Confirmed Pravastatin Sodium [Pravachol] 40 mg PO HS 11/04/17 04/29/23 amLODIPine BESYLATE/BENAZEPRIL 1 cap PO DAILY 11/04/17 04/29/23 [Lotrel 10-20 mg Capsule] Ondansetron [Zofran] 1 tab PO QID 08/31/22 04/29/23 Pantoprazole Sodium [Protonix] 1 tab PO DAILY 03/15/23 04/29/23 Allergies Allergy/AdvReac Type Severity Reaction Status Date / Time No Known Allergies Allergy Verified 04/29/23 13:16 Review of Systems ROS Statement: Those systems with pertinent positive or pertinent negative responses have been documented in the HPI. ROS Other: All systems not noted in ROS Statement are negative. Constitutional: Denies: fever Eyes: Denies: eye pain ENT: Denies: ear pain Respiratory: Denies: cough, dyspnea Cardiovascular: Denies: chest pain Endocrine: Denies: fatigue Gastrointestinal: Denies: abdominal pain Genitourinary: Denies: dysuria Musculoskeletal: Denies: back pain Past Medical History Past Medical History: Cancer, Hyperlipidemia, Hypertension, Osteoarthritis (OA) Additional Past Medical History / Comment(s): torn bicep, positive cologard, pancreatic CA History of Any Multi-Drug Resistant Organisms: None Reported Past Surgical History: Hernia Repair, Tonsillectomy Additional Past Surgical History / Comment(s): whipple surgery 12/28 Past Anesthesia/Blood Transfusion Reactions: No Reported Reaction Past Psychological History: No Psychological Hx Reported Smoking Status: Never smoker - Past Family History Mother Family Medical History: No Reported History General Exam Limitations: no limitations General appearance: alert, in no apparent distress Head exam: Present: other (Right forehead laceration) Eye exam: Present: normal appearance, PERRL, EOMI ENT exam: Present: normal oropharynx Neck exam: Present: normal inspection. Absent: tenderness Respiratory exam: Present: normal lung sounds bilaterally Cardiovascular Exam: Present: regular rate, normal rhythm, normal heart sounds Expanded Peripheral pulses: 2+: Radial (R), Radial (L), Dorsalis Pedis (R), Dorsalis Pedis (L) GI/Abdominal exam: Present: soft. Absent: tenderness Extremities exam: Present: normal inspection, full ROM. Absent: tenderness Neurological exam: Present: alert, CN II-XII intact. Absent: motor sensory deficit Expanded Neurological exam: Present: protecting the airway Patient oriented to: Present: person, place. Absent: time Speech: Present: fluid speech Cranial nerves: EOM's Intact: Normal, Facial Sensation: Normal Sensory exam: Upper Extremity Light Touch: Normal, Lower Extremity Light Touch: Normal Motor strength exam: RUE: 5, LUE: 5, RLE: 5, LLE: 5 Eye Response: (4) open spontaneously Motor Response: (6) obeys commands Verbal Response: (5) oriented Psychiatric exam: Present: normal affect, normal mood Skin exam: Present: normal color Course Vital Signs 10/03/23 10/03/23 10/03/23 11:20 11:24 12:24 Temperature 98 F Pulse Rate 57 L 59 L 50 L Respiratory 16 20 16 Rate Blood Pressure 147/87 147/87 150/87 O2 Sat by Pulse 98 98 98 Oximetry 10/03/23 14:00 Temperature Pulse Rate 57 L Respiratory 16 Rate Blood Pressure 145/60 O2 Sat by Pulse 98 Oximetry EKG Findings - EKG Results: EKG: interpreted by ERMD, sinus rhythm, normal axis, normal QRS, normal ST/T EKG shows: bradycardia Procedures - Laceration Laceration #1 Consent Obtained: verbal consent Indication: laceration Site: face Description: stellate Depth: simple, single layer Pre-repair: irrigated extensively Type of Sutures: other (Closed using tissue adhesive) Patient Tolerated Procedure: well, no complications Medical Decision Making - Medical Decision Making Was pt. sent in by a medical professional or institution (VENKAT Cruz, STREET DEPARTMENT DISPATCHER, urgent care, hospital, or [facility]...) When possible be specific @ -No Did you speak to anyone other than the patient for history (EMS, parent, family, police, friend...)? What history was obtained from this source @ -Family provides history as patient does not recall the incident Did you review nursing and triage notes (agree or disagree)? Why? @ -I reviewed and agree with nursing and triage notes Were old charts reviewed (outside hosp., previous admission, EMS record, old EKG, old radiological studies, urgent care reports/EKG's, [facility] records)? Report findings @ -No old charts were reviewed Differential Diagnosis (chest pain, altered mental status, abdominal pain women, abdominal pain men, vaginal bleeding, weakness, fever, dyspnea, syncope, headache, dizziness, GI bleed, back pain, seizure, CVA, palpatations, mental health, musculoskeletal)? @ -Differential Syncope: Valvular disease, hypertrophic cardiomyopathy, pulmonary embolism, tamponade, tachycardia, bradycardia, AR, hypovolemia, hemorrhage, dissection, anemia, intracranial hemorrhage, seizure, hypoglycemia, carbon monoxide poisoning, this is not meant to be an all-inclusive list. EKG interpreted by me (3pts min.). @ -As above X-rays interpreted by me (1pt min.). @ -Chest x-ray shows no acute process CT interpreted by me (1pt min.). @ -CT scan of the brain and chest did not reveal acute abnormality U/S interpreted by me (1pt. min.). @ -None done What testing was considered but not performed or refused? (CT, X-rays, U/S, labs)? Why? @ -None What meds were considered but not given or refused? Why? @ -None Did you discuss the management of the patient with other professionals (professionals i.e. VENKAT Cruz, STRE[employer] DEPARTMENT DISPATCHER, lab, RT, psych nurse, social psychologist, swedger, teacher, police commanding officer, hospice case manager)? Give summary @ -Case was discussed with Dr. Rick who will admit covering Dr. Vasques Was smoking cessation discussed for >3mins.? @ -No Was critical care preformed (if so, how long)? @ -No Were there social determinants of health that impacted care today? How? (Homeles sness, low income, unemployed, alcoholism, drug addiction, transportation, low edu. Level, literacy, decrease access to med. care, assisted, rehab)? @ -No Was there de-escalation of care discussed even if they declined (Discuss DNR or withdrawal of care, Hospice)? DNR status @ -No What co-morbidities impacted this encounter? (DM, HTN, Smoking, COPD, CAD, Cancer, CVA, ARF, Chemo, Hep., AIDS, mental health diagnosis, sleep apnea, morbid obesity)? @ -History of pancreatic cancer with possible recurrence Was patient admitted / discharged? Hospital course, mention meds given and route, prescriptions, significant lab abnormalities, going to OR and other pertinent info. @ -Patient presents with syncopal episode with minimal confusion following this. Patient reevaluated. Patient and family updated. Patient will be admitted. Admission orders written. Undiagnosed new problem with uncertain prognosis? @ -No Drug Therapy requiring intensive monitoring for toxicity (Heparin, Nitro, Insulin, Cardizem)? @ -No Were any procedures done? @ -Laceration repair, see above Diagnosis/symptom? @ -Syncope, forehead laceration Acute, or Chronic, or Acute on Chronic? @ -Acute, acute Uncomplicated (without systemic symptoms) or Complicated (systemic symptoms)? @ -Default Side effects of treatment? @ -No Exacerbation, Progression, or Severe Exacerbation? @ -No Poses a threat to life or bodily function? How? (Chest pain, USA, AR, pneumonia, PE, COPD, DKA, ARF, appy, cholecystitis, CVA, Diverticulitis, Homicidal, Suicidal, threat to staff... and all critical care pts) @ -No - Lab Data Result diagrams: 10/03/23 11:48 10/03/23 11:48 Lab Results 10/03/23 10/03/23 10/03/23 Range/Units 11:48 11:48 11:48 WBC 4.1 (3.8-10.6) k/uL RBC 3.92 L (4.30-5.90) m/uL Hgb 12.4 L (13.0-17.5) gm/dL Hct 37.3 L (39.0-53.0) % MCV 95.0 (80.0-100.0) fL MCH 31.5 (25.0-35.0) pg MCHC 33.2 (31.0-37.0) g/dL RDW 13.1 (11.5-15.5) % Plt Count 193 (150-450) k/uL MPV 7.1 Neutrophils % 69 % Lymphocytes % 21 % Monocytes % 6 % Eosinophils % 2 % Basophils % 1 % Neutrophils # 2.8 (1.3-7.7) k/uL Lymphocytes # 0.9 L (1.0-4.8) k/uL Monocytes # 0.2 (0-1.0) k/uL Eosinophils # 0.1 (0-0.7) k/uL Basophils # 0.0 (0-0.2) k/uL PT 10.2 (10.0-12.5) sec INR 0.9 (<1.2) APTT 21.7 L (22.0-30.0) sec D-Dimer 1.33 H (<0.60) mg/L FEU Sodium 140 (137-145) mmol/L Potassium 5.0 (3.5-5.1) mmol/L Chloride 111 H (98-107) mmol/L Carbon Dioxide 25 (22-30) mmol/L Anion Gap 4 mmol/L BUN 12 (9-20) mg/dL Creatinine 0.79 (0.66-1.25) mg/dL Est GFR (CKD-EPI)AfAm >90 (>60 ml/min/1.73 sqM) Est GFR (CKD-EPI)NonAf >90 (>60 ml/min/1.73 sqM) Glucose 96 (74-99) mg/dL Calcium 9.4 (8.4-10.2) mg/dL Magnesium 1.9 (1.6-2.3) mg/dL Total Bilirubin 0.5 (0.2-1.3) mg/dL AST 41 (17-59) U/L ALT 21 (4-49) U/L Alkaline Phosphatase 101 (38-126) U/L Troponin I (0.000-0.034) ng/mL Total Protein 6.1 L (6.3-8.2) g/dL Albumin 3.6 (3.5-5.0) g/dL 10/03/23 Range/Units 11:48 WBC (3.8-10.6) k/uL RBC (4.30-5.90) m/uL Hgb (13.0-17.5) gm/dL Hct (39.0-53.0) % MCV (80.0-100.0) fL MCH (25.0-35.0) pg MCHC (31.0-37.0) g/dL RDW (11.5-15.5) % Plt Count (150-450) k/uL MPV Neutrophils % % Lymphocytes % % Monocytes % % Eosinophils % % Basophils % % Neutrophils # (1.3-7.7) k/uL Lymphocytes # (1.0-4.8) k/uL Monocytes # (0-1.0) k/uL Eosinophils # (0-0.7) k/uL Basophils # (0-0.2) k/uL PT (10.0-12.5) sec INR (<1.2) APTT (22.0-30.0) sec D-Dimer (<0.60) mg/L FEU Sodium (137-145) mmol/L Potassium (3.5-5.1) mmol/L Chloride (98-107) mmol/L Carbon Dioxide (22-30) mmol/L Anion Gap mmol/L BUN (9-20) mg/dL Creatinine (0.66-1.25) mg/dL Est GFR (CKD-EPI)AfAm (>60 ml/min/1.73 sqM) Est GFR (CKD-EPI)NonAf (>60 ml/min/1.73 sqM) Glucose (74-99) mg/dL Calcium (8.4-10.2) mg/dL Magnesium (1.6-2.3) mg/dL Total Bilirubin (0.2-1.3) mg/dL AST (17-59) U/L ALT (4-49) U/L Alkaline Phosphatase (38-126) U/L Troponin I <0.012 (0.000-0.034) ng/mL Total Protein (6.3-8.2) g/dL Albumin (3.5-5.0) g/dL Disposition Clinical Impression: Syncope, Forehead laceration Disposition: ADMITTED IP TO THIS HOSP Is patient prescribed a controlled substance at d/c from ED?: No Referrals: Moreno Vasques DO [Primary Care Provider] - 1-2 days Time of Disposition: 14:56
[2023-10-03 12:04] LABS: Basophils % (A) 1 %; Eosinophils # (A) 0.1 k/uL (0-0.7); Eosinophils % (A) 2 %; HCT 37.3 % (39.0-53.0); HGB 12.4 gm/dL (13.0-17.5); Lymphocytes # (A) 0.9 k/uL (1.0-4.8); Lymphocytes % (A) 21 %; MCH 31.5 pg (25.0-35.0); MCHC 33.2 g/dL (31.0-37.0); Mean Platelet Volume 7.1; Monocytes # (A) 0.2 k/uL (0-1.0); Monocytes % (A) 6 %; Neutrophils # (A) 2.8 k/uL (1.3-7.7); Neutrophils % (A) 69 %; Platelet Count 193 k/uL (150-450); RBC 3.92 m/uL (4.30-5.90); RDW 13.1 % (11.5-15.5); WBC 4.1 k/uL (3.8-10.6)
[2023-10-03 12:16] LABS: ALT 21 U/L (4-49); AST 41 U/L (17-59); African American GFR (CKD) >90 (>60 ml/min/1.73 sqM); Albumin 3.6 g/dL (3.5-5.0); Alkaline Phosphatase 101 U/L (38-126); Anion Gap 4 mmol/L; Blood Urea Nitrogen 12 mg/dL (9-20); Calcium 9.4 mg/dL (8.4-10.2); Carbon Dioxide 25 mmol/L (22-30); Chloride 111 mmol/L (98-107); Glucose 96 mg/dL (74-99); Magnesium 1.9 mg/dL (1.6-2.3); Non-African American GFR(CKD) >90 (>60 ml/min/1.73 sqM); Sodium 140 mmol/L (137-145); Total Bilirubin 0.5 mg/dL (0.2-1.3); Total Protein 6.1 g/dL (6.3-8.2)
[2023-10-03 12:26] LABS: INR 0.9 (<1.2); Prothrombin Time 10.2 sec (10.0-12.5)
[2023-10-03 12:49] LABS: Partial Thromboplastin Time 21.7 sec (22.0-30.0)
[2023-10-03] MEDS: DIPH,PERTUS(ACELL)TETVAC-LF 0.5 ML VIAL IM ONE (13:17)
--- NOTE | 2023-10-03 13:17 | XR ---
EXAMINATION TYPE: XR chest 2V DATE OF EXAM: 10/03/2023 COMPARISON: 12/29/2022 HISTORY: Syncope TECHNIQUE: Frontal and lateral views of the chest are obtained. FINDINGS: There is no focal air space opacity, pleural effusion, or pneumothorax seen. The cardiac silhouette size is within normal limits. The osseous structures are intact. IMPRESSION: No acute cardiopulmonary process.
--- NOTE | 2023-10-03 13:21 | CT ---
EXAMINATION TYPE: CT brain wo con DATE OF EXAM: 10/03/2023 COMPARISON: None HISTORY: syncope CT DLP: 1145.4 mGycm Automated exposure control for dose reduction was used. Findings: The ventricles, basal cisterns and sulci over the convexities are within normal limits and there is n o mass effect or shift of midline structures. No abnormal density is seen throughout the brain parenchyma and there is no acute intra or extra-axia l hemorrhage. The posterior fossa including the brainstem, fourth ventricle and cerebellar pontine angles appear no rmal. Intraorbital contents appear normal and symmetric. Visualized paranasal sinuses and mastoid air cells are well aerated. The calvarium is intact. IMPRESSION: No significant abnormality seen. There is no acute bleed or mass effect.
--- NOTE | 2023-10-03 13:26 | CT ---
EXAMINATION TYPE: CT angio chest DATE OF EXAM: 10/03/2023 1:14 PM COMPARISON: CT chest abdomen and pelvis dated 04/23/2022 HISTORY: elevated d-dimer CT DLP: 333.3 mGycm Automated exposure control for dose reduction was used. CONTRAST: CTA scan of the thorax is performed with IV Contrast, patient injected with 100 mL of Isovue 370, pul monary embolism protocol. 3-D postprocessing was performed.. FINDINGS: LUNGS: There is no lung consolidation or abnormal interstitial density. There is a stable 5 to 6 mm n odule in the right upper lobe. There is no pleural effusion, pleural thickening or pneumothorax. MEDIASTINUM: There is satisfactory enhancement of the pulmonary artery and its branches, there is no CT evidence for pulmonary embolism. There are no greater than 1 cm hilar or mediastinal lymph nodes. No pericardial effusion is seen. OTHER: No additional significant abnormality is seen. IMPRESSION: 1. NO EVIDENCE OF PULMONARY EMBOLUS. 2. NO ACUTE CARDIOPULMONARY DISEASE.
[2023-10-03] MEDS ORDERED: NALOXONE 0.4 MG/ML 1 ML VIAL IV PRN (14:56)
[2023-10-03] MEDS ORDERED: ACETAMINOPHEN TAB 325 MG TAB PO PRN (14:56)
[2023-10-03] MEDS: SODIUM CHLORIDE 0.9% 1,000 ML IV SCH (15:11)
--- NOTE | 2023-10-03 15:37 | P.HPIM ---
History of Present Illness H&P Date: 10/03/23 Chief Complaint: Syncopal episode Patient is a 68-year-old male with a past medical history of hypertension hyperlipidemia and pancreatic cancer with metastasis status post chemotherapy followed by Whipple's procedure and then followed by chemotherapy again and then found to have metastasis to the tailbone so then had radiation therapy who presents to the ED with syncopal episode. Patient was with his son at a car show. Patient states that he felt hot so went to a shaded area and then passed out. He denied any chest pain or lightheadedness prior to passing out. Son was present with his father and said that there was no tonic-clonic like activity. When EMS arrived patient had regained his consciousness however patient himself does not remember EMS bringing him to the hospital. Family at this time states that patient's mental status is back to his baseline. Patient states that he feels well. He denies any urinary or bowel incontinence. He also denies any tongue soreness ROS: 10 ROS reviewed and are negative except as noted in HPI Physical exam General: [Alert and oriented, well nourished, no acute distress]. Eye: [PERRL, EOMI, normal conjunctiva]. HENT: [Normocephalic, clear tympanic membranes, normal hearing, moist oral mucosa, no scleral icterus, no sinus tenderness, lacerations to the right side of his head]. Neck: [Supple, non-tender, no carotid bruits, no JVD, no lymphadenopathy]. Lungs: [Clear to auscultation and percussion, non-labored respiration]. Heart: [Normal rate, regular rhythm, no murmur, gallop or edema]. Abdomen: [Soft, non-tender, non-distended, normal bowel sounds, no masses]. Musculoskeletal: [Normal range of motion and strength, no tenderness or swelling]. Skin: [Skin is warm, dry and pink, no rashes or lesions]. Neurologic: [Awake, alert, and oriented X3, CN II-XII intact]. Psychiatric: [Cooperative, appropriate mood and affect]. Assessment and plan Syncopal episode I suspect this is most likely due to dehydration However it does appear that the patient did have some prolonged confusion after he regained consciousness so cannot rule out postictal. Will order EEG and also consult neurology. Will hold off on MRI for now as patient did have a recent PET scan and currently the report is pending. Patient also does have heart rate in the 50s so cannot rule out bradycardia as the etiology of his syncope. Will also consult cardiology. Will obtain a echocardiogram. Resume IV fluids at 75 cc an hour Pancreatic cancer with metastasis status post chemotherapy and Whipple's procedure and radiation to tailbone Patient to follow-up outpatient with his oncologist Hypertension Resume home BP meds Hyperlipidemia Resume statin DVT prophylaxis: Subcu heparin Past Medical History Past Medical History: Cancer, Hyperlipidemia, Hypertension, Osteoarthritis (OA) Additional Past Medical History / Comment(s): torn bicep, positive cologard, pancreatic CA History of Any Multi-Drug Resistant Organisms: None Reported Past Surgical History: Hernia Repair, Tonsillectomy Additional Past Surgical History / Comment(s): whipple surgery 12/28 Past Anesthesia/Blood Transfusion Reactions: No Reported Reaction Past Psychological History: No Psychological Hx Reported Smoking Status: Never smoker - Past Family History Mother Family Medical History: No Reported History Medications and Allergies Home Medications Medication Instructions Recorded Confirmed Type Pravastatin Sodium [Pravachol] 40 mg PO HS 11/04/17 04/29/23 History amLODIPine BESYLATE/BENAZEPRIL 1 cap PO DAILY 11/04/17 04/29/23 History [Lotrel 10-20 mg Capsule] Ondansetron [Zofran] 1 tab PO QID 08/31/22 04/29/23 History Pantoprazole Sodium [Protonix] 1 tab PO DAILY 03/15/23 04/29/23 History Allergies Allergy/AdvReac Type Severity Reaction Status Date / Time No Known Allergies Allergy Verified 04/29/23 13:16 Physical Exam Osteopathic Statement: *. No significant issues noted on an osteopathic structural exam other than those noted in the History and Physical/Consult. Vitals: Vital Signs Temp Pulse Pulse Resp BP Pulse Ox 10/03/23 14:56 68 10/03/23 14:00 57 L 16 145/60 98 10/03/23 12:24 50 L 16 150/87 98 10/03/23 11:24 59 L 20 147/87 98 10/03/23 11:20 98 F 57 L 16 147/87 98 Intake and Output 10/03/23 10/03/23 10/03/23 06:59 14:59 22:59 Other: Weight 63.503 kg Results CBC & Chem 7: 10/03/23 11:48 10/03/23 11:48 Labs: Abnormal Lab Results - Last 24 Hours (Table) 10/03/23 10/03/23 10/03/23 Range/Units 11:48 11:48 11:48 RBC 3.92 L (4.30-5.90) m/uL Hgb 12.4 L (13.0-17.5) gm/dL Hct 37.3 L (39.0-53.0) % Lymphocytes # 0.9 L (1.0-4.8) k/uL APTT 21.7 L (22.0-30.0) sec D-Dimer 1.33 H (<0.60) mg/L FEU Chloride 111 H (98-107) mmol/L Total Protein 6.1 L (6.3-8.2) g/dL
[2023-10-03] MEDS ORDERED: ONDANSETRON 4 MG TAB PO PRN (16:00)
[2023-10-03] MEDS: SUCRALFATE 1 GM TAB PO SCH (17:24)
[2023-10-03] MEDS: traZODone HCL 50 MG TAB PO SCH (20:23)
[2023-10-03] MEDS: PRAVASTATIN SODIUM 40 MG TAB PO SCH (20:23)
[2023-10-04 07:56] VITALS: RESP 17
[2023-10-04] MEDS: PANTOPRAZOLE 40 MG TABLET PO SCH (09:00)
[2023-10-04] MEDS: CHOLESTYRAMINE (WITH SUGAR) 4 GM PACKET PO SCH (09:00)
--- NOTE | 2023-10-04 10:14 | P.CRDCN ---
History of Present Illness History of present illness: HISTORY OF PRESENT ILLNESS: This is a 68-year-old male with a past medical history significant for hyperlipidemia, GERD, and pancreatic cancer with Whipple in December 2022. Patient does not follow with a regional sales coordinator. We have been asked to see the patient in consultation for syncope. Patient examined at the bedside. Patient states yesterday he was at a car show walking outside when he decided to go walk to an area that was more shaded. Patient states he was not having any chest pa in or shortness of breath. He denied having any dizziness or lightheadedness. As he was walking he had a syncopal episode and did suffer trauma to the right side of his forehead. The patient states he had no warning signs at all that he was going to pass out. He does not remember any of the events until after he got to the hospital. Patient denies any syncopal episodes in the past. Patient states he used to be on blood pressure medications but after losing a significant amount of weight with his cancer treatment his blood pressure normalized and he no longer requires antihypertensive medications. DIAGNOSTICS: - EKG reveals sinus bradycardia with no signs of acute ischemia. - Chest xray negative for acute process -Chest CTA: Negative for PE. No acute cardiopulmonary disease - Laboratory data: Troponin negative x 3 - Current home cardiac medications include Pravachol 40 mg at night REVIEW OF SYSTEMS: At the time of my exam: CONSTITUTIONAL: Denies fever or chills. HEENT: Denies blurred vision, vision changes, or eye pain. Denies hemoptysis CARDIOVASCULAR: Denies chest pain. Denies orthopnea. Denies PND. Denies palpitations RESPIRATORY: Denies shortness of breath. GASTROINTESTINAL: Denies abdominal pain. Denies nausea or vomiting. HEMATOLOGIC: Denies bleeding disorders. GENITOURINARY: Denies any blood in urine. SKIN: Denies pruitis. Denies rash. PHYSICAL EXAM: VITAL SIGNS: Reviewed. GENERAL: Well-developed in no acute distress. HEENT: Head is normocephalic. Pupils are equal, round. Sclerae anicteric. Mucous membranes of the mouth are moist. Neck supple. No JVD or thyromegaly LUNGS: Respirations even and unlabored. Lungs essentially clear to auscultation bilaterally. HEART: Regular rate and rhythm. S1 and S2 heard. ABDOMEN: Soft. Nondistended. Nontender. EXTREMITIES: Normal range of motion. No clubbing or cyanosis. Peripheral pulses intact. No lower extremity edema NEUROLOGIC: Awake and alert. Oriented x 3. ASSESSMENT: Syncope Hyperlipidemia Pancreatic cancer with Whipple and December 2022 GERD PLAN: An acute coronary event has been ruled out Obtain 2D echo to assess cardiac structure and function Neurology has been consulted for evaluation. Await further input Patient to receive a 4-week event monitor from the cardiology office at the time of discharge Patient may be discharged home this afternoon from a cardiac standpoint He is to follow-up in the office with Dr. White in 6 weeks Nurse practitioner note has been reviewed by physician. Signing provider agrees with the documented findings, assessment, and plan of care documented by CRIMINAL PSYCHOLOGIST as a scribe. Past Medical History Past Medical History: Cancer, Hyperlipidemia, Hypertension, Osteoarthritis (OA) Additional Past Medical History / Comment(s): torn bicep, positive cologard, pancreatic CA History of Any Multi-Drug Resistant Organisms: None Reported Past Surgical History: Hernia Repair, Tonsillectomy Additional Past Surgical History / Comment(s): whipple surgery 12/28 Past Anesthesia/Blood Transfusion Reactions: No Reported Reaction Past Psychological History: No Psychological Hx Reported Smoking Status: Never smoker - Past Family History Mother Family Medical History: No Reported History Medications and Allergies Home Medications Medication Instructions Recorded Confirmed Type Pravastatin Sodium [Pravachol] 40 mg PO HS 11/04/17 10/03/23 History Ondansetron [Zofran] 4 mg PO Q4H PRN 08/31/22 10/03/23 History Pantoprazole Sodium [Protonix] 20 mg PO DAILY 03/15/23 10/03/23 History Cholestyramine (with Sugar) 2 gm PO DAILY 10/03/23 10/03/23 History [Cholestyramine Packet] Sucralfate [Carafate] 1 gm PO ACHS 10/03/23 10/03/23 History traZODone HCL [Desyrel] 50 mg PO HS 10/03/23 10/03/23 History Allergies Allergy/AdvReac Type Severity Reaction Status Date / Time No Known Allergies Allergy Verified 10/03/23 15:54 Physical Exam Vitals: Vital Signs Temp Pulse Pulse Pulse Pulse Pulse Resp 10/04/23 07:24 98 F 76 95 65 17 10/04/23 06:00 66 13 10/04/23 02:02 70 12 10/03/23 20:00 73 17 10/03/23 18:00 79 20 10/03/23 17:00 65 16 10/03/23 16:00 75 16 10/03/23 14:56 68 10/03/23 14:00 57 L 16 10/03/23 12:24 50 L 16 10/03/23 11:24 59 L 20 10/03/23 11:20 98 F 57 L 16 BP BP BP BP Pulse Ox 10/04/23 07:24 132/89 128/90 143/88 100 10/04/23 06:00 131/86 98 10/04/23 02:02 119/61 97 10/03/23 20:00 119/98 99 10/03/23 18:00 131/66 98 10/03/23 17:00 126/82 96 10/03/23 16:00 140/68 98 10/03/23 14:56 10/03/23 14:00 145/60 98 10/03/23 12:24 150/87 98 10/03/23 11:24 147/87 98 10/03/23 11:20 147/87 98 Results 10/03/23 11:48 10/03/23 11:48 Cardiac Enzymes 10/03/23 10/03/23 10/03/23 Range/Units 11:48 11:48 15:25 AST 41 (17-59) U/L Troponin I <0.012 <0.012 (0.000-0.034) ng/mL 10/03/23 Range/Units 18:11 AST (17-59) U/L Troponin I <0.012 (0.000-0.034) ng/mL Coagulation 10/03/23 Range/Units 11:48 PT 10.2 (10.0-12.5) sec APTT 21.7 L (22.0-30.0) sec CBC 10/03/23 Range/Units 11:48 WBC 4.1 (3.8-10.6) k/uL RBC 3.92 L (4.30-5.90) m/uL Hgb 12.4 L (13.0-17.5) gm/dL Hct 37.3 L (39.0-53.0) % Plt Count 193 (150-450) k/uL Comprehensive Metabolic Panel 10/03/23 Range/Units 11:48 Sodium 140 (137-145) mmol/L Potassium 5.0 (3.5-5.1) mmol/L Chloride 111 H (98-107) mmol/L Carbon Dioxide 25 (22-30) mmol/L BUN 12 (9-20) mg/dL Creatinine 0.79 (0.66-1.25) mg/dL Glucose 96 (74-99) mg/dL Calcium 9.4 (8.4-10.2) mg/dL AST 41 (17-59) U/L ALT 21 (4-49) U/L Alkaline Phosphatase 101 (38-126) U/L Total Protein 6.1 L (6.3-8.2) g/dL Albumin 3.6 (3.5-5.0) g/dL Current Medications Generic Name Dose Route Start Last Admin Trade Name Freq PRN Reason Stop Dose Admin Acetaminophen 650 mg 10/03/23 14:56 Acetaminophen Tab 325 Mg Tab PO Q6HR PRN Mild Pain or Fever > 100.5 Cholestyramine Resin 2 gm 10/04/23 09:00 Cholestyramine (With Sugar) 4 Gm Packet PO DAILY DANA Sodium Chloride 1,000 mls @ 75 mls/hr 10/03/23 15:00 10/04/23 06:36 Saline 0.9% IV 75 mls/hr .[id number] DANA Administration Naloxone HCl 0.2 mg 10/03/23 14:56 Naloxone 0.4 Mg/Ml 1 Ml Vial IV Q2M PRN Opioid Reversal Ondansetron HCl 4 mg 10/03/23 16:00 Ondansetron 4 Mg Tab PO Q4H PRN Nausea Pantoprazole Sodium 40 mg 10/04/23 07:30 Pantoprazole 40 Mg Tablet PO AC-[id number] DANA Pravastatin Sodium 40 mg 10/03/23 21:00 10/03/23 20:23 Pravastatin Sodium 40 Mg Tab PO 40 mg HS DANA Administration Sucralfate 1 gm 10/03/23 17:30 10/03/23 20:23 Sucralfate 1 Gm Tab PO 1 gm ACHS DANA Administration Trazodone HCl 50 mg 10/03/23 21:00 10/03/23 20:23 Trazodone Hcl 50 Mg Tab PO 50 mg HS DANA Administration 10/03/23 11:48 10/03/23 11:48
--- NOTE | 2023-10-04 13:32 | P.CNNES ---
History of Present Illness Consult date: 10/04/23 Requesting physician: Tyrone Carrera Reason for Consult: syncope History of Present Illness: This is a 68-year-old gentleman with a history of pancreatic cancer with metastasis statuspost Whipple procedure chemotherapy and radiation presents to the emergency department because of a syncopal episode. Patient is accompanied with his and he stated yesterday he was with his son for car show this past Wednesday and it was hot outside and he just went to sit down initiated area and all of a sudden he had a brief passing out episode. He does not recall the episode episode. And he states the episode was very brief. Denies urinary or bowel incontinence or tongue bite. Denies being told that he had any jerking of any extremities. Denies any history of seizure. Since his pancreatic cancer and his stated that he has been having difficulty with sensation of the cold warm. He had a recent PET scan. He denies any focal weakness. Denies any focal numbness. The denies any difficulty getting his words out. Some of the workup during this hospital visit consisted of: Orthostatic vitals are negative. I reviewed the lab workup. CT of the head is reported as no significant abnormality seen. There is no acute bleed or mass effect. I personally reviewed the CT and agree with the report Review of Systems The positive and negative as per HPI. Past Medical History Past Medical History: Cancer, Hyperlipidemia, Hypertension, Osteoarthritis (OA) Additional Past Medical History / Comment(s): torn bicep, positive cologard, pancreatic CA History of Any Multi-Drug Resistant Organisms: None Reported Past Surgical History: Hernia Repair, Tonsillectomy Additional Past Surgical History / Comment(s): whipple surgery 12/28 Past Anesthesia/Blood Transfusion Reactions: No Reported Reaction Past Psychological History: No Psychological Hx Reported Smoking Status: Never smoker - Past Family History Mother Family Medical History: No Reported History Medications and Allergies Home Medications Medication Instructions Recorded Confirmed Type Pravastatin Sodium [Pravachol] 40 mg PO HS 11/04/17 10/03/23 History Ondansetron [Zofran] 4 mg PO Q4H PRN 08/31/22 10/03/23 History Pantoprazole Sodium [Protonix] 20 mg PO DAILY 03/15/23 10/03/23 History Cholestyramine (with Sugar) 2 gm PO DAILY 10/03/23 10/03/23 History [Cholestyramine Packet] Sucralfate [Carafate] 1 gm PO ACHS 10/03/23 10/03/23 History traZODone HCL [Desyrel] 50 mg PO HS 10/03/23 10/03/23 History Allergies Allergy/AdvReac Type Severity Reaction Status Date / Time No Known Allergies Allergy Verified 10/03/23 15:54 Physical Examination - Vital Signs Vital Signs: Vital Signs Temp Pulse Pulse Pulse Pulse Pulse Resp 10/04/23 07:24 98 F 76 95 65 17 10/04/23 06:00 66 13 10/04/23 02:02 70 12 10/03/23 20:00 73 17 10/03/23 18:00 79 20 10/03/23 17:00 65 16 10/03/23 16:00 75 16 10/03/23 14:56 68 10/03/23 14:00 57 L 16 BP BP BP BP Pulse Ox 10/04/23 07:24 132/89 128/90 143/88 100 10/04/23 06:00 131/86 98 10/04/23 02:02 119/61 97 10/03/23 20:00 119/98 99 10/03/23 18:00 131/66 98 10/03/23 17:00 126/82 96 10/03/23 16:00 140/68 98 10/03/23 14:56 10/03/23 14:00 145/60 98 Intake and Output 10/03/23 10/04/23 10/04/23 22:59 06:59 14:59 Intake Total 236 Balance 236 Intake: Oral 236 Other: # Voids 1 # Bowel Movements 1 GENERAL: The patient is lying in bed and is not in acute distress. HENT: Has bruise around right forehead/periorbital. NEUROLOGICAL: Higher mental function: The patient is awake, alert, oriented to self, place and time. Patient is following commands. No aphasia and no neglect. Cranial nerves: The pupils are round, equal and reactive to light and accommodation. Visual martinez are full to confrontation throughout. Extraocular movement is intact no nystagmus is noted. Facial sensation is normal to touch throughout. The facial strength is normal throughout. Hearing is normal bilaterally to hand rub. Tongue is midline and moved [id number] without any difficulty. No dysarthria is noted. Shoulder shrug is normal bilaterally. Motor: Gait is normal. The strength is 5 over 5 throughout. Normal tone and bulk. Cerebellum: Normal finger to nose heel to nguyen bilaterally. Sensation: Sensation is normal to touch throughout. Reflexes (right/left): 2+ throughout. Plantars are downgoing bilaterally. Results - Laboratory Findings CBC and BMP: 10/03/23 11:48 10/03/23 11:48 Abnormal Lab Findings: Abnormal Labs 10/03/23 10/03/23 10/03/23 11:48 11:48 11:48 RBC 3.92 L Hgb 12.4 L Hct 37.3 L Lymphocytes # 0.9 L APTT 21.7 L D-Dimer 1.33 H Chloride 111 H Total Protein 6.1 L Assessment and Plan Assessment: This is a 68-year-old gentleman with history of pancreatic cancer with metastasis status post Whipple procedure and chemo therapy and last chemo was in April 2023 and radiation therapy last in July 2023 who presents to the emergency department because of a syncopal episode this past Wednesday while he was outside watching the car show. States the episode was brief and no urinary or bowel incontinence or jerking of any extremities. Syncopal episode due to dehydration. Does not appear seizure. CT head is unremarkable and orthostatic is negative. History of pancreatic cancer with metastasis status post Whipple procedure and chemo therapy and last chemo was in April 2023 and radiation therapy last in July 2023 Plan: Routine EEG was ordered and is pending I initially ordered MRI of the brain but the patient refused since she had a recent PET scan Patient was counseled on hydrating himself. Cardiology is consulted and 2D echo was ordered and is pending Has recent PET scan and pending to be read. He has a follow-up appointment with his oncologist (Dr. Farrell) this week. Plan discussed with the patient and his is at bedside Thank you for the consultation If routine EEG is negative for any seizure or discharges then the patient is cleared from a neurologic perspective. Time with Patient: Greater than 30
[2023-10-04 14:38] VITALS: BP 127/79; PULSE 71; TEMP 98.3
--- NOTE | 2023-10-04 14:59 | P.DS ---
Providers Date of admission: 10/03/23 14:56 Attending physician: Rik Edmondson MD Consults: 10/03/23 14:56 Consult Physician Routine Consulting Provider: Adryan Mitchell Consult Reason/Comments: syncope Do you want consulting provider notified?: Yes 10/03/23 15:30 Consult Physician Routine Consulting Provider: Stiven Wallace Consult Reason/Comments: syncope Do you want consulting provider notified?: Yes Primary care physician: [facility] Course: Hospital course Patient is a 68-year-old male with a past medical history of hypertension hyperlipidemia and pancreatic cancer with metastasis status post chemotherapy followed by Whipple's procedure and then followed by chemotherapy again and then found to have metastasis to the tailbone so then had radiation therapy who presents to the ED with syncopal episode. Patient was with his son at a car show. Patient states that he felt hot so went to a shaded area and then passed out. He denied any chest pain or lightheadedness prior to passing out. Son was present with his father and said that there was no tonic-clonic like activity. When EMS arrived patient had regained his consciousness however patient himself does not remember EMS bringing him to the hospital. Family at this time states that patient's mental status is back to his baseline. Patient states that he feels well. He denies any urinary or bowel incontinence. He also denies any tongue soreness. Patient was evaluated by cardiology who said patient is stable for discharge and patient was set up with a 4-week Holter monitor. Patient was also seen by neurology who said patient is also stable from their standpoint. His EEG was normal. Physical exam General examination - Alert and Oriented 3 in NAD Heart - + S1S2 no murmurs Lungs - Clear to auscultation Abdomen soft NT ND +ve BS Extremities - No edema MANAGER DIGITAL - Moving all 4 extremities spontaneously Psych - Calm and cooperative Discharge diagnosis Syncopal episode likely due to dehydration Pancreatic cancer with metastasis status post chemotherapy and Whipple's procedure and radiation to tailbone Hypertension Hyperlipidemia I spent a total of 33 minutes with this discharge Patient Condition at Discharge: Stable Plan - Discharge Summary New Discharge Prescriptions: Continue Pravastatin Sodium [Pravachol] 40 mg PO HS Ondansetron [Zofran] 4 mg PO Q4H PRN PRN Reason: Nausea traZODone HCL [Desyrel] 50 mg PO HS Sucralfate [Carafate] 1 gm PO ACHS Cholestyramine (with Sugar) [Cholestyramine Packet] 2 gm PO DAILY Pantoprazole Sodium [Protonix] 20 mg PO DAILY Discharge Medication List Pravastatin Sodium [Pravachol] 40 mg PO HS 11/04/17 [History] Ondansetron [Zofran] 4 mg PO Q4H PRN 08/31/22 [History] Pantoprazole Sodium [Protonix] 20 mg PO DAILY 03/15/23 [History] Cholestyramine (with Sugar) [Cholestyramine Packet] 2 gm PO DAILY 10/03/23 [History] Sucralfate [Carafate] 1 gm PO ACHS 10/03/23 [History] traZODone HCL [Desyrel] 50 mg PO HS 10/03/23 [History] Follow up Appointment(s)/Referral(s): Moreno Vasques DO [Primary Care Provider] - 1-2 days Jameson White MD [STAFF PHYSICIAN] - 1 Week Discharge Disposition: HOME SELF-CARE
--- NOTE | 2023-10-04 17:39 | CA ---
Transthoracic Echo Report Name: Hector Dudley Age: 68 Gender: M : 1955 Exam Date: 10/04/2023 08:34 Exam Location: [facility] Ht (in): 72 Wt (lb): 140 Ordering Physician: Marian Carrera MD Attending/Referring Phys: Career Manager Coleen Alexander RD Procedure CPT: Indications: Syncope Cardiac Hx: Technical Quality: Technically difficult study Contrast 1: Definity Total Dose (mL): 2 Contrast 2: Total Dose (mL): MEASUREMENTS (Male / Female) Normal Values 2D ECHO LV Diastolic Diameter PLAX 3.5 cm 4.2 - 5.9 / 3.9 - 5.3 cm LV Systolic Diameter PLAX 2.2 cm IVS Diastolic Thickness 1.1 cm 0.6 - 1.0 / 0.6 - 0.9 cm LVPW Diastolic Thickness 1.1 cm 0.6 - 1.0 / 0.6 - 0.9 cm LV Relative Wall Thickness 0.6 LA Volume 24.5 cm??? 18 - 58 / 22 - 52 cm??? LA Volume Index 13.7 cm???/m??? 16 - 28 cm???/m??? M-MODE Aortic Root Diameter MM 3.6 cm LA Systolic Diameter MM 3.1 cm LA Ao Ratio MM 0.9 AV Cusp Separation MM 2.0 cm DOPPLER AV Peak Velocity 99.6 cm/s AV Peak Gradient 4.0 mmHg AV Mean Velocity 74.7 cm/s AV Mean Gradient 2.4 mmHg AV Velocity Time Integral 17.1 cm LVOT Peak Velocity 80.2 cm/s LVOT Peak Gradient 2.6 mmHg LVOT Velocity Time Integral 17.7 cm TR Peak Velocity 188.4 cm/s TR Peak Gradient 14.2 mmHg Right Ventricular Systolic Press 19.2 mmHg FINDINGS Left Ventricle Mildly increased left ventricular wall thickness. Left ventricular cavity size normal. Normal left ventricular systolic function with no obvious regional wall motion abnormalities. Left ventricular ejection fraction is estimated at 55-60 %. Grade 1 diastolic dysfunction. Right Ventricle Normal right ventricular size and function. Right ventricular systolic pressure within normal limits. Right Atrium Normal right atrial size. Left Atrium Normal left atrial size. Mitral Valve Structurally normal mitral valve. No mitral stenosis, regurgitation or prolapse. Aortic Valve No aortic valve stenosis or regurgitation. Tricuspid Valve Structurally normal tricuspid valve. Mild tricuspid regurgitation. Pulmonic Valve Trace pulmonic regurgitation. Pericardium No pericardial effusion. Aorta Normal size aortic root and proximal ascending aorta. CONCLUSIONS Normal LV size and function Previewed by: Dr. Jameson White MD (Electronically Signed) Final Date: 04 October 2023 17:38
--- NOTE | 2023-10-05 00:26 | EEG ---
ELECTROENCEPHALOGRAM REPORT CLINICAL HISTORY: This is a 68-year-old gentleman with a syncopal episode. The video EEG is obtained to evaluate for seizure epileptiform activity. RELEVANT MEDICATIONS: The patient is not on any antiepileptic drugs. EEG TYPE: This is a routine 21-channel EEG with video using the 10/20 electrode placement system. DESCRIPTION: Wakefulness and drowsiness are obtained. During awake state, the posterior-dominant rhythm consists of [id number] voltage of 10 hertz activity that is well modulated and well sustained. There is no physiological stage 2 sleep architecture. There is no focal slowing. Interictal and ictal is none. ACTIVATION PROCEDURE: Photic stimulation and hyperventilation are not performed. CLINICAL INTERPRETATION: This is a normal routine EEG. There is no focal slowing, epileptiform discharge, or seizure on the EEG. A normal routine EEG does not rule out underlying epilepsy. Clinical correlation is recommended. BIA / BENNY: [id number] /
== END 2023-10-04 16:03 | disposition home or self-care (01) ==
LOC: EC 11:13 → 6NMEDSUR 14:56
PROVIDERS: ADMIT Family Medicine; ATTEND Family Medicine
DX: R55 Syncope and collapse (principal); S01.81XA Laceration without foreign body of other part of head, initial encounter; W19.XXXA Unspecified fall, initial encounter; I10 Essential (primary) hypertension; E78.5 Hyperlipidemia, unspecified; K21.9 Gastro-esophageal reflux disease without esophagitis; Z85.07 Personal history of malignant neoplasm of pancreas; Z92.21 Personal history of antineoplastic chemotherapy; Z92.3 Personal history of irradiation; Z79.899 Other long term (current) drug therapy; Z23 Encounter for immunization
CPT/HCPCS: 96361 ×3; 90471; 96360; 99285; 36415; 95816; 93005; 85379; 80053; 83735; 84484; 85025; 85610; 85730; 71046; 70450; 71275; 90715; G0378 ×2; C8929; Q9957; Q9967; 93306

== ENCOUNTER → 2023-11-03 | Outpatient (CLI) | payer MEDICARE ==
[2023-11-03 10:08] LABS: African American GFR (CKD) >90 (>60 ml/min/1.73 sqM); Blood Urea Nitrogen 14 mg/dL (9-20); Non-African American GFR(CKD) >90 (>60 ml/min/1.73 sqM)
--- NOTE | 2023-11-03 11:06 | CT ---
EXAMINATION TYPE: CT abdomen pelvis w con DATE OF EXAM: 11/03/2023 COMPARISON: 09/30/2023, 04/23/2022. HISTORY: H/O PANCREATIC CA F/U CT DLP: 962 mGycm Automated exposure control for dose reduction was used. CONTRAST: CT scan of the abdomen pelvis is performed with IV Contrast, patient injected with 100 mL of Isovue 3 70. FINDINGS- LUNG BASES- No significant abnormality is appreciated. LIVER/GB- changes of pneumobilia. Low-attenuation liver suggesting hepatic steatosis. No focal mass es. Mild intrahepatic biliary dilation centrally. PANCREAS- there is soft tissue fullness in the peripancreatic region measuring up to 3.5 cm referenc e image 21. This encroaches upon the celiac axis may represent pathologic adenopathy associated with the pancreatic neck mass. There is mild dilation of the pancreatic duct the level of the body tail.. SPLEEN- No gross abnormality is seen. ADRENALS- bilateral adrenal gland thickening most likely basis of hyperplasia. KIDNEYS/BLADDER- no hydronephrosis or nephrolithiasis. Simple right renal cyst.. BOWEL- nonspecific gas pattern with numerous fluid-filled bowel loops and retained debris throughout the colon. No diagnostic evidence of obstruction. Correlate for prior gastric surgery. LYMPH NODES- short axis 3 there is dense sclerosis of the sacrum which is stable could be metastatic or post therapeutic. .5 cm matted adenopathy in the celiac region and peripancreatic region.. OSSEOUS STRUCTURES- scoliosis with multilevel degenerative disc disease. Bilateral hip arthropathy. OTHER- prostate enlargement measuring 5.2 cm. Mild bladder wall thickening correlate for chronic cys titis. IMPRESSION- 1. Persistent mass\adenopathy in the pancreatic neck region\celiac plexus measuring up to 3.5 cm and encroaching upon the celiac axis. Difficult to compare to the prior exam as it was a PET scan without contrast. Grossly similar to prior exam and not present on the exam of 04/23/2022. 2. Dense sclerosis of the sacrum which could be metastatic or reactive post therapeutic change is sta ble.
== END | disposition home or self-care (01) ==
LOC: RADCTMAIN 09:24
PROVIDERS: ATTEND Internal Medicine
DX: C25.0 Malignant neoplasm of head of pancreas
CPT/HCPCS: 36415; 74177; 82565; 84520

== ENCOUNTER 2023-12-31 00:28 | Emergency (ER) | payer MEDICARE ==
[2023-12-31 00:45] VITALS: TEMP 97.7
--- NOTE | 2023-12-31 01:20 | ED ---
General Adult HPI - General Chief complaint: Syncope Stated complaint: Syncope Source: EMS Mode of arrival: EMS - History of Present Illness Initial comments: Pt is a 68 y/o male with PMH pancreatic CA, currently in remission presenting for syncopal episode. Pt had stood up from bed and subsequently lost consciousness. Did hit his head on dresser. No seizure activity, tongue biting or urinary incontinence. Pt's states pt was unconscious "with his eyes rolled back" for 30 seconds. Pt returned to baseline after. The patient has had poor intake and decreased appetite over the last few months. Family is concerned he does not eat enough. Currently in remission from pancreatic CA however has lost alot of weight and is currently following with his oncologist regarding concerns for metasteses to the bone and has a follow up CT scheduled for tomorrow at [facility]. Pt denies recent illness, fevers, vomiting, diarrhea, black or bloody stools, chest pain, abdominal pain, diffculty in breathing, new focal numbness or weakness. States he has been previously admitted for similar episode over the summer and had an extensive workup performed without significant findings. - Related Data Home Medications Medication Instructions Recorded Confirmed Pravastatin Sodium [Pravachol] 40 mg PO HS 11/04/17 10/03/23 Ondansetron [Zofran] 4 mg PO Q4H PRN 08/31/22 10/03/23 Pantoprazole Sodium [Protonix] 20 mg PO DAILY 03/15/23 10/03/23 Cholestyramine (with Sugar) 2 gm PO DAILY 10/03/23 10/03/23 [Cholestyramine Packet] Sucralfate [Carafate] 1 gm PO ACHS 10/03/23 10/03/23 traZODone HCL [Desyrel] 50 mg PO HS 10/03/23 10/03/23 Allergies Allergy/AdvReac Type Severity Reaction Status Date / Time No Known Allergies Allergy Verified 12/31/23 00:37 Review of Systems ROS Statement: Those systems with pertinent positive or pertinent negative responses have been documented in the HPI. ROS Other: All systems not noted in ROS Statement are negative. Past Medical History Past Medical History: Cancer, Hyperlipidemia, Hypertension, Osteoarthritis (OA) Additional Past Medical History / Comment(s): torn bicep, positive cologard, pancreatic CA History of Any Multi-Drug Resistant Organisms: None Reported Past Surgical History: Hernia Repair, Tonsillectomy Additional Past Surgical History / Comment(s): whipple surgery 12/28 Past Anesthesia/Blood Transfusion Reactions: No Reported Reaction Past Psychological History: No Psychological Hx Reported Smoking Status: Never smoker - Past Family History Mother Family Medical History: No Reported History General Exam - General Exam Comments Initial Comments: PE: CONSTITUTIONAL: No apparent distress, chronically ill appearing, underweight SKIN: Warm, dry, no jaundice, hives or petechiae EYES: Pupils are equally round, extraocular movements intact without nystagmus, clear conjunctiva, non-icteric sclera HENT: Normocephalic, atraumatic, dry mucus membranes, oropharynx clear without exudates NECK: , Full range of motion, normal appearance, no midline spinal TTP PULMONARY: Clear to auscultation without wheezes, rhonchi, or rales, normal excursion, no accessory muscle use and no stridor CARDIOVASCULAR: Regular rate, rhythm, normal S1 and S2. No appreciated murmurs, rubs or gallops. Strong radial pulses with intact distal perfusion. No lower extremity edema GASTROINTESTINAL: Soft, active bowel sounds throughout, non-tender, non- distended, no palpable masses, no rebound or guarding. No hepatosplenomegaly MUSCULOSKELETAL: Extremities have no gross deformity, no edema, redness, or swelling. No calf swelling NEUROLOGIC:_a/o x 3, GCS 15, normal mentation and speech. Moves all extremities x 4 without motor or sensory deficit, Cranial nerves: II (visual martinez without defects), III, IV and (extraocular movements are intact, pupils are equal with normal reaction to light), V (intact facial sensation and jaw opening), VII (no facial droop), IX and X (normal palate movement, midline uvula, normal voice), XI (symmetrical shoulder shrug and lateral head rotation against resistance), XII (midline tongue protrusion). Motor strength is 5/5 in all extremities. No abnormal movements. Normal muscle tone. Sensation to light touch is intact bilaterally. No cerebellar signs ([id number] normal) PSYCHIATRIC:_normal mood and affect, thought process is clear and linear Course Vital Signs 12/31/23 12/31/23 12/31/23 00:31 03:00 04:51 Temperature 97.7 F Pulse Rate 82 66 Pulse Rate [ 84 Sitting Pulse Oximetery] Pulse Rate [ 94 Standing Pulse Oximetery] Pulse Rate [ 75 Supine Pulse Oximetery] Respiratory 18 17 Rate Blood Pressure 117/83 120/90 Blood Pressure 106/87 [Sitting] Blood Pressure 123/90 [Standing] Blood Pressure 126/84 [Supine] O2 Sat by Pulse 95 100 Oximetry 12/31/23 05:59 Temperature Pulse Rate 72 Pulse Rate [ Sitting Pulse Oximetery] Pulse Rate [ Standing Pulse Oximetery] Pulse Rate [ Supine Pulse Oximetery] Respiratory 18 Rate Blood Pressure 126/86 Blood Pressure [Sitting] Blood Pressure [Standing] Blood Pressure [Supine] O2 Sat by Pulse 98 Oximetry EKG Findings - EKG Comments: EKG Findings:: Sinus rhythm, 75 bpm, RI interval 129 ms, QRS duration 89 ms, QT/QTc 361/390 ms, normal axis, no ST elevations or depressions, no arrhythmia Medical Decision Making - Medical Decision Making Was pt. sent in by a medical professional or institution (, PA, FARM OPERATOR, urgent care, hospital, or senior care...) When possible be specific @ -No Did you speak to anyone other than the patient for history (EMS, parent, family, police, friend...)? What history was obtained from this source @ Pt's family assisted in providing hx Did you review nursing and triage notes (agree or disagree)? Why? @ -I reviewed nursing and triage notes Were old charts reviewed (outside hosp., previous admission, EMS record, old EKG, old radiological studies, urgent care reports/EKG's, senior care records)? Report findings @ -Medical records reviewed Differential Diagnosis (chest pain, altered mental status, abdominal pain women, abdominal pain men, vaginal bleeding, weakness, fever, dyspnea, syncope, headache, dizziness, GI bleed, back pain, seizure, CVA, palpatations, mental health, musculoskeletal)? @ -Differential Syncope: Valvular disease, hypertrophic cardiomyopathy, pulmonary embolism, tamponade, tachycardia, bradycardia, ACS, hypovolemia, hemorrhage, dissection, anemia, seizure, hypoglycemia, this is not meant to be an all-inclusive list. EKG interpreted by me (3pts min.). @ -As above X-rays interpreted by me (1pt min.). @ -None done CT interpreted by me (1pt min.). @ -No evidence of hemorrhage or mass effect on CT brain, No large or saddle PE on CT chest, no masses or free air noted on CT abdomen/pelvis U/S interpreted by me (1pt. min.). @ -None done What testing was considered but not performed or refused? (CT, X-rays, U/S, labs)? Why? @ -None What meds were considered but not given or refused? Why? @ -None Did you discuss the management of the patient with other professionals (professionals i.e. , PA, FARM OPERATOR, lab, RT, psych nurse, social work instructor, fighter pilot, teacher, textile technical officer, case reviewer)? Give summary @ -No Was smoking cessation discussed for >3mins.? @ -No Was critical care preformed (if so, how long)? @ -No Were there social determinants of health that impacted care today? How? (Homelessness, low income, unemployed, alcoholism, drug addiction, transportation, low edu. Level, literacy, decrease access to med. care, half-way, rehab)? @ -No Was there de-escalation of care discussed even if they declined (Discuss DNR or withdrawal of care, Hospice)? @ -No What co-morbidities impacted this encounter? (DM, HTN, Smoking, COPD, CAD, Cancer, CVA, ARF, Chemo, Hep., AIDS, mental health diagnosis, sleep apnea, morbid obesity)? @ Pancreatic CA Was patient admitted / discharged? Hospital course, mention meds given and route, prescriptions, significant lab abnormalities, going to OR and other pertinent info. @ -Discharged- Pt is a 68 y/o gentleman presenting with and daughter after syncopal episode at home today. On my assessment patient is chronically ill appearing but nontoxic, in NAD. No focal neuro deficits on exam. Discussed with patient that given age, hit head and LOC, will obtain CT brain/cspine, additionally, w/ hx recently treated and possibly active CA, will obtain CT PE study and due to rapid weight loss, CT a/p, in addition to comprehensve labs, IV fluids, EKG. PT and agreeable with POC. Labs reviewed. Grossly within normal limits. Alk phos 129, otherwise,Abnormal va lues not concerning for acute pathology related to presenting complaint. CT PE study negative for PE. Comments on stable lung nodules. CT abdomen pelvis significant for prominent fluid and gas filled small bowel loops with probable transition point in the lower abdomen, concerning for small bowel obstruction. I discussed this with the patient and his however patient has soft nontender abdomen, continues to have normal BMs for him and no episodes of emesis, and is tolerating PO intake, inconsistent with bowel obstruction. Discussed with patient and admitting pt for observation however patient preferred discharge home, noting he has been admitted for this over the summer and workup ultimately did not result in significant findings. In my medical judgment there is currently no evidence of an immediate life- threatening or surgical condition. Discharge is therefore indicated at this time. Discharge treatment instructions, follow up instructions, and appropriate emergency department return precautions were discussed with the patient and/or medical decision maker. Patient and/or medical decision maker expressed understanding of and agreed with the treatment plan, follow up instructions, and emergency department return precaution. All patient's and/or medical decision maker's questions were answered. The patient was advised that a small risk still exists that a serious condition could develop and was therefore instructed to return to the ED for any changes in symptoms, persistent symptoms, inability to obtain proper follow-up or for any further concerns. Patient received verbal and written instructions for this condition. Undiagnosed new problem with uncertain prognosis? @ -No Drug Therapy requiring intensive monitoring for toxicity (Heparin, Nitro, Insul in, Cardizem) @ -No Were any procedures done? @ -No Diagnosis/symptom? @ -Syncope Acute, or Chronic, or Acute on Chronic? @ Acute Uncomplicated (without systemic symptoms) or Complicated (systemic symptoms)? @ -complicated Side effects of treatment? @ -No Exacerbation, Progression, or Severe Exacerbation? @ -No Poses a threat to life or bodily function? How? (Chest pain, USA, CT, pneumonia, PE, COPD, DKA, ARF, appy, cholecystitis, CVA, Diverticulitis, Homicidal, Suicidal, threat to staff... and all critical care pts) @ -No - Lab Data Result diagrams: 12/31/23 01:12/31/23: Lab Results 12/31/23 12/31/23 12/31/23 Range/Units : 01: 01: WBC 9.0 (3.8-10.6) k/uL RBC 4.74 (4.30-5.90) m/uL Hgb 14.8 (13.0-17.5) gm/dL Hct 43.8 (39.0-53.0) % MCV 92.3 (80.0-100.0) fL MCH 31.2 (25.0-35.0) pg MCHC 33.8 (31.0-37.0) g/dL RDW 12.4 (11.5-15.5) % Plt Count 220 (150-450) k/uL MPV 7.4 Neutrophils % 85 % Lymphocytes % 10 % Monocytes % 4 % Eosinophils % 0 % Basophils % 0 % Neutrophils # 7.7 (1.3-7.7) k/uL Lymphocytes # 0.9 L (1.0-4.8) k/uL Monocytes # 0.4 (0-1.0) k/uL Eosinophils # 0.0 (0-0.7) k/uL Basophils # 0.0 (0-0.2) k/uL PT 9.8 L (10.0-12.5) sec INR 0.9 (<1.2) APTT 21.2 L (22.0-30.0) sec Sodium 140 (137-145) mmol/L Potassium 4.6 (3.5-5.1) mmol/L Chloride 105 (98-107) mmol/L Carbon Dioxide 27 (22-30) mmol/L Anion Gap 8 mmol/L BUN 12 (9-20) mg/dL Creatinine 0.73 (0.66-1.25) mg/dL Est GFR (CKD-EPI)AfAm >90 (>60 ml/min/1.73 sqM) Est GFR (CKD-EPI)NonAf >90 (>60 ml/min/1.73 sqM) Glucose 102 H (74-99) mg/dL Plasma Lactic Acid Don (0.7-2.0) mmol/L Calcium 10.1 (8.4-10.2) mg/dL Ionized Calcium Smooth 5.3 (4.5-5.3) mg/dL Phosphorus 3.8 (2.5-4.5) mg/dL Magnesium 2.1 (1.6-2.3) mg/dL Total Bilirubin 0.8 (0.2-1.3) mg/dL AST 31 (17-59) U/L ALT 28 (4-49) U/L Alkaline Phosphatase 129 H (38-126) U/L Troponin I (0.000-0.034) ng/mL Total Protein 7.3 (6.3-8.2) g/dL Albumin 4.4 (3.5-5.0) g/dL Urine Color Urine Appearance (Clear) Urine pH (5.0-8.0) Ur Specific Marion (1.001-1.035) Urine Protein (Negative) Urine Glucose (UA) (Negative) Urine Ketones (Negative) Urine Blood (Negative) Urine Nitrite (Negative) Urine Bilirubin (Negative) Urine Urobilinogen (<2.0) mg/dL Ur Leukocyte Esterase (Negative) Urine RBC (0-5) /hpf Urine WBC (0-5) /hpf Calcium Oxalate Crystal (None) /hpf Urine Mucus (None) /hpf 12/31/23 12/31/23 12/31/23 Range/Units 01:26 02:10 04:33 WBC (3.8-10.6) k/uL RBC (4.30-5.90) m/uL Hgb (13.0-17.5) gm/dL Hct (39.0-53.0) % MCV (80.0-100.0) fL MCH (25.0-35.0) pg MCHC (31.0-37.0) g/dL RDW (11.5-15.5) % Plt Count (150-450) k/uL MPV Neutrophils % % Lymphocytes % % Monocytes % % Eosinophils % % Basophils % % Neutrophils # (1.3-7.7) k/uL Lymphocytes # (1.0-4.8) k/uL Monocytes # (0-1.0) k/uL Eosinophils # (0-0.7) k/uL Basophils # (0-0.2) k/uL PT (10.0-12.5) sec INR (<1.2) APTT (22.0-30.0) sec Sodium (137-145) mmol/L Potassium (3.5-5.1) mmol/L Chloride (98-107) mmol/L Carbon Dioxide (22-30) mmol/L Anion Gap mmol/L BUN (9-20) mg/dL Creatinine (0.66-1.25) mg/dL Est GFR (CKD-EPI)AfAm (>60 ml/min/1.73 sqM) Est GFR (CKD-EPI)NonAf (>60 ml/min/1.73 sqM) Glucose (74-99) mg/dL Plasma Lactic Acid Don 1.2 (0.7-2.0) mmol/L Calcium (8.4-10.2) mg/dL Ionized Calcium Smooth (4.5-5.3) mg/dL Phosphorus (2.5-4.5) mg/dL Magnesium (1.6-2.3) mg/dL Total Bilirubin (0.2-1.3) mg/dL AST (17-59) U/L ALT (4-49) U/L Alkaline Phosphatase (38-126) U/L Troponin I <0.012 (0.000-0.034) ng/mL Total Protein (6.3-8.2) g/dL Albumin (3.5-5.0) g/dL Urine Color Yellow Urine Appearance Cloudy (Clear) Urine pH 5.5 (5.0-8.0) Ur Specific Marion 1.026 (1.001-1.035) Urine Protein Trace H (Negative) Urine Glucose (UA) Negative (Negative) Urine Ketones Negative (Negative) Urine Blood Negative (Negative) Urine Nitrite Negative (Negative) Urine Bilirubin Negative (Negative) Urine Urobilinogen <2.0 (<2.0) mg/dL Ur Leukocyte Esterase Negative (Negative) Urine RBC 3 (0-5) /hpf Urine WBC 1 (0-5) /hpf Calcium Oxalate Crystal Occasional H (None) /hpf Urine Mucus Many H (None) /hpf Disposition Clinical Impression: Syncope Disposition: HOME SELF-CARE Condition: Good Instructions (If sedation given, give patient instructions): Syncope (ED) Additional Instructions: Every disease is a spectrum and a small chance still exists that a serious condition could develop, for this reason, please monitor yourself closely for new, changing or worsening symptoms, vomiting or inability to keep down fluids or medications, no bowel movement for more than 48 hours, new abdominal pain or abdominal distention, chest pain, difficulty in breathing,fever, inability to tolerate/keep down fluids or your medications, inability to follow up with outpatient providers as instructed and should you experience these symptoms or should you have any further concerns for your wellbeing please return to the ED or call 911 immediately. Please maintain a clear liquid diet for the next 24 hours. Please return to the ED if you have any of the symptoms above when you return to solid foods. PLEASE call your primary care physician as soon as possible to arrange / discuss plan for followup appointment. Appointment in the next 1-3 days is strongly encouraged if possible. PLEASE let us know here before you leave if there is anything further we can do to be of any assistance. Take care and feel Better! Is patient prescribed a controlled substance at d/c from ED?: No Referrals: Moreno Vasques, [Primary Care Provider] - 1-2 days
[2023-12-31 01:29] LABS: Basophils % (A) 0 %; Eosinophils % (A) 0 %; HCT 43.8 % (39.0-53.0); HGB 14.8 gm/dL (13.0-17.5); Lymphocytes # (A) 0.9 k/uL (1.0-4.8); Lymphocytes % (A) 10 %; MCH 31.2 pg (25.0-35.0); MCHC 33.8 g/dL (31.0-37.0); MCV 92.3 fL (80.0-100.0); Mean Platelet Volume 7.4; Monocytes # (A) 0.4 k/uL (0-1.0); Monocytes % (A) 4 %; Neutrophils # (A) 7.7 k/uL (1.3-7.7); Neutrophils % (A) 85 %; Platelet Count 220 k/uL (150-450); RBC 4.74 m/uL (4.30-5.90); RDW 12.4 % (11.5-15.5)
[2023-12-31 01:53] LABS: Ionized Calcium 5.3 mg/dL (4.5-5.3)
[2023-12-31 01:56] LABS: INR 0.9 (<1.2); Prothrombin Time 9.8 sec (10.0-12.5)
[2023-12-31 01:58] LABS: Partial Thromboplastin Time 21.2 sec (22.0-30.0)
[2023-12-31 02:02] LABS: ALT 28 U/L (4-49); AST 31 U/L (17-59); African American GFR (CKD) >90 (>60 ml/min/1.73 sqM); Albumin 4.4 g/dL (3.5-5.0); Alkaline Phosphatase 129 U/L (38-126); Anion Gap 8 mmol/L; Blood Urea Nitrogen 12 mg/dL (9-20); Calcium 10.1 mg/dL (8.4-10.2); Carbon Dioxide 27 mmol/L (22-30); Chloride 105 mmol/L (98-107); Glucose 102 mg/dL (74-99); Magnesium 2.1 mg/dL (1.6-2.3); Non-African American GFR(CKD) >90 (>60 ml/min/1.73 sqM); Phosphorus 3.8 mg/dL (2.5-4.5); Potassium 4.6 mmol/L (3.5-5.1); Sodium 140 mmol/L (137-145); Total Bilirubin 0.8 mg/dL (0.2-1.3); Total Protein 7.3 g/dL (6.3-8.2)
[2023-12-31] MEDS: SODIUM CHLORIDE 0.9% 1,000 ML IV STA (02:08)
[2023-12-31 02:48] LABS: Appearance,Urine Cloudy (Clear); Bilirubin,Urine Negative (Negative); Blood,Urine Negative (Negative); Calcium Oxalate Crystals,Urine Occasional /hpf; Color,Urine Yellow; Glucose,Urine (UA) Negative (Negative); Ketones,Urine Negative (Negative); Leukocyte Esterase,Urine Negative (Negative); Mucus,Urine Many /hpf; Nitrite,Urine Negative (Negative); PH, Urine 5.5 (5.0-8.0); Protein,Urine Trace (Negative); RBC,Urine 3 /hpf (0-5); Specific Gravity,Urine 1.026 (1.001-1.035); Urobilinogen,Urine <2.0 mg/dL (<2.0); WBC,Urine 1 /hpf (0-5)
--- NOTE | 2023-12-31 03:17 | CT ---
EXAM: CT Angiography Chest With Intravenous Contrast CLINICAL HISTORY: ITS.REASON CT Reason: syncope, hx pancreatic CA, weight loss TECHNIQUE: Axial computed tomographic angiography images of the chest with intravenous contrast. CTDI is 9.2 mGy and DLP is 407.7 mGy-cm. This CT exam was performed using one or more of the following dose reduction techniques: automated exposure control, adjustment of the mA and/or kV according to patient size, and/or use of iterative reconstruction technique. MIP reconstructed images were created and reviewed. COMPARISON: CT chest on 10/03/2023 FINDINGS: Pulmonary arteries: Unremarkable. No pulmonary embolus identified. Aorta: No acute findings. No aortic aneurysm or dissection. Lungs: Small calcified granulomas in the right lung. Mild scarring at the lung apices. Stable nonspecific 4 mm groundglass nodule in the right upper lobe. Stable nonspecific 2 mm nodule in the left upper lobe along the left major fissure and 2 mm subpleural nodule along the lateral left lower lobe. No consolidation. Pleural space: Unremarkable. No significant effusion. No pneumothorax. Heart: Unremarkable. No cardiomegaly. No significant pericardial effusion. No evidence of RV dysfunction. Mediastinum: Calcified mediastinal and hilar lymph nodes. Bones/joints: Degenerative changes of the spine. No acute fracture. No dislocation. Soft tissues: Unremarkable. Lymph nodes: See above. Other: Please see accompanying CT abdomen/pelvis for further details. IMPRESSION: 1. No pulmonary embolus identified. 2. No aortic aneurysm or dissection. 3. Stable nonspecific 4 mm groundglass nodule in the right upper lobe. Stable nonspecific 2 mm nodule in the left upper lobe along the left major fissure and 2 mm subpleural nodule along the lateral left lower lobe.
--- NOTE | 2023-12-31 03:22 | CT ---
EXAM: CT Abdomen and Pelvis With Intravenous Contrast CLINICAL HISTORY: ITS.REASON CT Reason: syncope, hx pancreatic CA, weight loss. Pt brought in EMS c/o LOC. Pt got out of bed, passed out and hit head on bed. reports pt was unresponsive for 1-2 minutes. Pt has hx of pancreatic cancer, last radiation back in august. no thinners. Hx of dehydration TECHNIQUE: Axial computed tomography images of the abdomen and pelvis with intravenous contrast. CTDI is 14.7 mGy and DLP is 730.5 mGy-cm. This CT exam was performed using one or more of the following dose reduction techniques: automated exposure control, adjustment of the mA and/or kV according to patient size, and/or use of iterative reconstruction technique. COMPARISON: CT chest/abdomen/pelvis on 04/23/2022 FINDINGS: Lung bases: Unremarkable. No mass. No consolidation. ABDOMEN: Liver: Unremarkable. No mass. Gallbladder and bile ducts: Pneumobilia. No calcified stones. No ductal dilation. Pancreas: Postsurgical changes suggestive of Whipple procedure. No ductal dilation. Spleen: Unremarkable. No splenomegaly. Adrenals: Unremarkable. No mass. Kidneys and ureters: Small right renal cyst. Other tiny hypodensities in the right kidney are too small to definitively characterize. No hydronephrosis or obstructing ureteral stone. Stomach and bowel: Large amount of stool in the colon. Prominent fluid and gas-filled small bowel loops with probable transition point in the lower abdomen, concerning for small bowel obstruction. Evaluation of the stomach is limited by underdistention. Diverticulosis without definite evidence of diverticulitis. PELVIS: Appendix: No findings to suggest acute appendicitis. Bladder: Mild prominence of the bladder wall may be secondary to underdistention. Reproductive: Mild prostatomegaly with calcifications. ABDOMEN and PELVIS: Intraperitoneal space: Small amount fluid in the pelvis. No free air. Bones/joints: Sclerosis in the sacrum, concerning for osseous metastasis. Degenerative changes of the spine. No acute fracture. No dislocation. Soft tissues: Unremarkable. Vasculature: Mild atherosclerotic changes of the vasculature. No abdominal aortic aneurysm. Lymph nodes: Unremarkable. No enlarged lymph nodes. IMPRESSION: 1. Large amount of stool in the colon. 2. Prominent fluid and gas-filled small bowel loops with probable transition point in the lower abdomen, concerning for small bowel obstruction. 3. Small amount fluid in the pelvis. 4. Sclerosis in the sacrum, concerning for osseous metastasis. 5. Mild prostatomegaly with calcifications.
--- NOTE | 2023-12-31 03:24 | CT ---
EXAM: CT Head Without Intravenous Contrast CLINICAL HISTORY: ITS.REASON CT Reason: syncope TECHNIQUE: Axial computed tomography images of the head/brain without intravenous contrast. CTDI is 45.2 mGy and DLP is 1140 mGy-cm. This CT exam was performed using one or more of the following dose reduction techniques: automated exposure control, adjustment of the mA and/or kV according to patient size, and/or use of iterative reconstruction technique. COMPARISON: None FINDINGS: Brain: No acute infarct or hemorrhage. No extra-axial fluid collection. No mass effect or midline shift. Ventricles and sulci: Normal. No ventriculomegaly or intraventricular hemorrhage. Bones: Normal. No bony lesion or acute fracture. Subcutaneous tissues: Normal. Sinuses: Normal. No air-fluid levels or mucosal thickening. Mastoid air cells: Normal. Orbits: Grossly unremarkable. IMPRESSION: No acute intracranial abnormality. EXAM: CT Cervical Spine Without Intravenous Contrast CLINICAL HISTORY: ITS.REASON CT Reason: syncope TECHNIQUE: Axial computed tomography images of the cervical spine without intravenous contrast. CTDI is 9.1 mGy and DLP is 253.5 mGy-cm. This CT exam was performed using one or more of the following dose reduction techniques: automated exposure control, adjustment of the mA and/or kV according to patient size, and/or use of iterative reconstruction technique. COMPARISON: None FINDINGS: Bones: Normal alignment. No acute fracture or bony lesion. Disc spaces: No subluxation. Degenerative changes of the spine. Soft tissues: Normal. Other: Heterogeneous thyroid and small calcification in the left thyroid lobe could be further evaluated with ultrasound if clinically indicated. IMPRESSION: No acute traumatic abnormality.
[2023-12-31 06:00] VITALS: BP 126/86; PULSE 72; RESP 18
== END 2023-12-31 06:00 | disposition home or self-care (01) ==
LOC: EC 00:28
DX: R55 Syncope and collapse (principal)
CPT/HCPCS: 36415; 93005; 80053; 82330; 83605; 83735; 84100; 84484; 85025; 85610; 85730; 81001; 72125; 70450; 71275; 74177; 99285; 96360; Q9967; 99284

== ENCOUNTER → 2024-03-20 | Outpatient (CLI) | payer MEDICARE ==
[2024-03-20 12:51] LABS: African American GFR (CKD) >90 (>60 ml/min/1.73 sqM); Blood Urea Nitrogen 13 mg/dL (9-20); Non-African American GFR(CKD) >90 (>60 ml/min/1.73 sqM)
--- NOTE | 2024-03-20 17:03 | CT ---
EXAMINATION TYPE: CT ChestAbdPelvis w con DATE OF EXAM: 03/20/2024 2:52 PM COMPARISON: 12/31/2023 CLINICAL INDICATION: Male, 69 years old with history of C25.0 MALIGNANT NEOPLASM OF HEAD OF PANCREAS; PHH, f/u pancreatic ca Technique: CT ChestAbdPelvis w con; Multiple axial images were obtained. Two-dimensional coronal and sagittal reconstructions were obtained. Contrast used:100ml mL of Isovue 300 with IV Contrast, (None if empty) Oral contrast used: with Oral Contrast CT DLP: 515.2 mGycm, Automated exposure control for dose reduction was used. Findings: CHEST: LUNGS/ PLEURA: No focal consolidation, pneumothorax or pleural effusion.r partially calcified nodule in the right upper lung measuring 3 mm series 3 image 10 groundglass nodule series 3 image 20 measuri ng 4 mm nodule in the left upper lobe measuring 4 mm series 3 image 26, these are all stable from AIRWAY: Patent and unremarkable. HEART: Size within normal limits. MEDIASTINUM: No gross evidence of adenopathy. Partially calcified lymph node in the mediastinum. VASCULATURE: No aortic aneurysm. MUSCULOSKELETAL: No acute osseous abnormalities. SOFT TISSUES/LYMPH NODES: Unremarkable. LOWER NECK: No significant findings. ABDOMEN: ABDOMEN LIVER: Unremarkable GALLBLADDER AND BILE DUCTS: Unremarkable. PANCREAS: Soft tissues surrounding the celiac access and superior mesenteric artery are again redemon strated area measuring roughly 3.4 x 4.1 cm. There is upstream dilation of the pancreatic duct. SPLEEN: Unremarkable. ADRENAL GLANDS: Unremarkable. KIDNEYS AND URETERS: No evidence of hydronephrosis or renal calculus. The ureters are unremarkable. Simple appearing right renal cyst. PELVIS BLADDER: Unremarkable REPRODUCTIVE: Prostate is enlarged in size measuring 4.9 cm in transverse dimension. ABDOMEN & PELVIS STOMACH AND BOWEL: No evidence of bowel obstruction. PERITONEUM/RETROPERITONEUM: No evidence of pneumoperitoneum or free fluid. VASCULATURE: No evidence of aortic aneurysm. Soft tissue encasing the superior mesenteric artery and celiac axis with diminutive appearance of the vessels. MUSCULOSKELETAL: Sclerotic lesion involving the sacrum is not definitely changed compared to immediat e prior. LYMPH NODES: No gross evidence for lymphadenopathy. SOFT TISSUE/ABDOMINAL WALL: Unremarkable IMPRESSION: 1. Soft tissue mass surrounding the celiac axis and superior mesenteric artery with dilation of the pancreatic duct findings could be compatible with history of pancreatic malignancy. Soft tissue area is felt to be similar to 12/31/2023. Soft tissue surrounding the vessels has narrowing of some of the branches of the celiac axis after its origin. Consider follow-up evaluation with PET/CT for evaluati on for metabolic activity. 2. Stable scattered pulmonary nodules. 3. Stable sclerotic lesions throughout osseous structures and there is a calcified mediastinal lymph node. Findings likely post treatment change. 4. Prostatomegaly correlate serum PSA. [facility], , 03/20/2024 5:01 PM
== END | disposition home or self-care (01) ==
LOC: RADCTMAIN 12:09
PROVIDERS: ATTEND Internal Medicine
DX: C25.0 Malignant neoplasm of head of pancreas (principal); R91.8 Other nonspecific abnormal finding of lung field; N40.0 Benign prostatic hyperplasia without lower urinary tract symptoms; N28.1 Cyst of kidney, acquired
CPT/HCPCS: 82565; 84520; 71260; 74177; 36415; Q9967

== ENCOUNTER → 2024-05-18 | Outpatient (CLI) | payer MEDICARE ==
--- NOTE | 2024-05-20 16:22 | PE ---
EXAMINATION TYPE: PET CT fusion skull to thigh DATE OF EXAM: 05/18/2024 CLINICAL INDICATION:Male, 69 years old with history of C25.0 pancreatic ca; TECHNIQUE: Following the intravenous administration of 12.56 mCi of F-18 FDG, whole body images are performed from the skull base to the midthigh. Images are reviewed on the computer in the coronal, axial, and sagittal planes. Reconstructed rotating images are created on independent workstation and reviewed on the computer. A non-contrast CT is performed in conjunction with the PET scan. Glucose level 88 mg/dL CT DLP: 279.47 mGycm, Automated exposure control for dose reduction was used. COMPARISON: CT 03/20/2024, 11/03/2023, 10/03/2023, 04/23/2022, PET/CT 09/30/2023, MRI: 07/03/2023 FINDINGS: Mediastinal SUV mean is 1.2. Hepatic parenchyma SUV mean is 1.6. SKULL BASE AND NECK: No suspicious radiotracer activity. CHEST, MEDIASTINUM, AND HILAR REGION: No suspicious radiotracer activity. ABDOMEN AND PELVIS: Ill-defined soft tissue surrounding the celiac axis and superior mesenteric artery demonstrates mild activity with a maximum SUV of 4.3. Previously 7.5. Evaluation is limited due to lack of intravenous contrast. Left retroperitoneal focal region radiotracer uptake which may represent a lymph node versus radiotra cer within the distal ureter. Demonstrates a maximum SUV of 8.9. MUSCULOSKELETAL STRUCTURES: Redemonstration of mixed sclerotic/lytic lesions throughout the sacrum. Maximum SUV is 11 compared to previously 3.5. OTHER CT: Multilevel degenerative changes of the spine. Macrocalcification within the left thyroid lo be. Subcarinal and bilateral hilar calcified granulomas. Minimal coronary tibia calcifications. Posts urgical changes from Whipple procedure. Mild atherosclerotic calcification of the aorta and its branc hes. Prostatomegaly measuring 5.2 cm with central coarse calcifications. Biapical pleural-parenchymal scarring. Right upper lobe calcific granuloma. IMPRESSION: Mixed response to treatment with decreased FDG activity within the ill-defined soft tissue surroundin g the celiac axis and superior mesenteric artery. However there is increased patchy prominent FDG upt crystal throughout the sacrum consistent with metastatic disease. Additionally there is a left retroperit forde single focus of radiotracer activity which may represent a metastatic lymph node versus the dis [place] ureter. [facility], , 05/20/2024 4:20 PM
== END | disposition home or self-care (01) ==
LOC: RADPETMAIN 07:50
PROVIDERS: ATTEND Internal Medicine
DX: C25.0 Malignant neoplasm of head of pancreas (principal)
CPT/HCPCS: 78815; A9552

== ENCOUNTER 2024-07-18 09:23 | Inpatient (IN) | payer MEDICARE ==
--- NOTE | 2024-07-18 10:08 | ED ---
General Adult HPI - General Chief complaint: Back Pain/Injury Stated complaint: med issues Time Seen by Provider: 07/18/24 09:50 Source: patient, RN notes reviewed, old records reviewed Mode of arrival: ambulatory Limitations: no limitations - History of Present Illness Initial comments: Patient is a 69-year-old male who presents emergency department complaining of chronic back pain but also was having hallucinations and some altered mental status. He has been having increased pain and progressively has been having increased opiate administration from her oncology office. He has been having muscle twitches as well as increased auditory hallucinations over the last few weeks. Patient's states this occurred previously when he came out of anesthesia. Also occurred previously when he was on high-dose pain medications when admitted to a hospital. She believes this is likely the cause. Patient has no other acute complaints at this time other than tailbone pain. It is a metastatic lesion from original source of pancreatic cancer. Patient confirms he is DNR. Denies any chest pain or shortness of breath. Denies any abdominal pain, nausea, vomiting. No other acute complaints at this time.Over the last month or so, patient was on tramadol which then was changed to [place] fives and then to [place] 7.5 and then now has been on oxycodone since Wednesday. Last dose of oxycodone was yesterday. - Related Data Home Medications Medication Instructions Recorded Confirmed Ondansetron [Zofran] 4 mg PO Q4H PRN 08/31/22 07/18/24 Pantoprazole [Protonix] 40 mg PO DAILY 07/18/24 07/18/24 Allergies Allergy/AdvReac Type Severity Reaction Status Date / Time hydrocodone AdvReac jerking/desmond Verified 07/18/24 10:47 lucinations /confusion oxycodone AdvReac jerking/desmond Verified 07/18/24 10:47 lucinations /confusion Review of Systems ROS Statement: Those systems with pertinent positive or pertinent negative responses have been documented in the HPI. Review of Systems: CONST: Denies fever EYES: Denies blurry vision ENT: Denies nasal congestion C/V: Denies Chest pain RESP: Denies shortness of breath GI: Denies abdominal pain : Denies dysuria SKIN: Denies rash. MSK: Endorses tailbone pain NEURO: Denies headache ROS Other: All systems not noted in ROS Statement are negative. Past Medical History Past Medical History: Cancer, Hyperlipidemia, Hypertension, Osteoarthritis (OA) Additional Past Medical History / Comment(s): torn bicep, positive cologard, pancreatic CA History of Any Multi-Drug Resistant Organisms: None Reported Past Surgical History: Hernia Repair, Tonsillectomy Additional Past Surgical History / Comment(s): whipple surgery 12/28 Past Anesthesia/Blood Transfusion Reactions: No Reported Reaction Past Psychological History: No Psychological Hx Reported Smoking Status: Never smoker - Past Family History Mother Family Medical History: No Reported History General Exam - General Exam Comments Initial Comments: General: Appears in no acute distress. HEAD: Normal with no signs of head trauma. EYES: PERRLA, EOMI, conjunctiva normal, no discharge. Pupils are 3 mm and equal bilaterally. ENT: Hearing grossly intact, normal oropharynx. RESPIRATORY: Clear breath sounds bilaterally. No wheezes, rales, or rhonchi. C/V: Regular rate and rhythm. S1 and S2 auscultated, no edema, peripheral pulses 2+ and intact throughout ABD: Abd is soft, nontender, nondistended EXT: Normal range of motion, no obvious deformity. Tenderness to palpation over the coccyx and lower lumbar spine at the source of a chronic mat which causes chronic pain. SKIN: No rashes or lesions observed on exposed skin. NEURO: Alert and oriented x 4. No focal deficits. States he occasionally has auditory hallucinations. No evidence of muscle twitching at this time. Limitations: no limitations Course Vital Signs 07/18/24 07/18/24 09:32 12:16 Temperature 97.9 F Pulse Rate 92 57 L Respiratory 20 18 Rate Blood Pressure 106/70 112/82 O2 Sat by Pulse 99 99 Oximetry Medical Decision Making - Medical Decision Making Was pt. sent in by a medical professional or institution (, PA, FISH HATCHERY SUPERINTENDENT, urgent care, hospital, or custodial...) When possible be specific @ -Sent by oncology office for evaluation for worsening pain and altered mental status. Did you speak to anyone other than the patient for history (EMS, parent, family, police, friend...)? What history was obtained from this source @ -No Did you review nursing and triage notes (agree or disagree)? Why? @ -I reviewed and agree with nursing and triage notes Were old charts reviewed (outside hosp., previous admission, EMS record, old EKG, old radiological studies, urgent care reports/EKG's, custodial records)? Report findings @ -No old charts were reviewed Differential Diagnosis (chest pain, altered mental status, abdominal pain women, abdominal pain men, vaginal bleeding, weakness, fever, dyspnea, syncope, headache, dizziness, GI bleed, back pain, seizure, CVA, palpatations, mental health, musculoskeletal)? @ -Hallucinations, chronic pain, electrolyte abnormalities, dehydration. This list is not all inclusive. EKG interpreted by me (3pts min.). @ -As above X-rays interpreted by me (1pt min.). @ -Chest x-ray reveals no obvious acute cardiopulmonary process. CT interpreted by me (1pt min.). @ -CT brain reveals no obvious acute intracranial process. U/S interpreted by me (1pt. min.). @ -None done What testing was considered but not performed or refused? (CT, X-rays, U/S, labs)? Why? @ -None What meds were considered but not given or refused? Why? @ -None Did you discuss the management of the patient with other professionals (professionals i.e. , PA, FISH HATCHERY SUPERINTENDENT, lab, RT, psych nurse, psychiatric social worker, school counselor, teacher, surveillance officer, child support case officer)? Give summary @ -I spoke with the admitting provider, Dr. Ambrose who accepted the admission. Was smoking cessation discussed for >3mins.? @ -No Was critical care preformed (if so, how long)? @ -no Were there social determinants of health that impacted care today? How? (Homelessness, low income, unemployed, alcoholism, drug addiction, transportation, low edu. Level, literacy, decrease access to med. care, skilled nursing, rehab)? @ -No Was there de-escalation of care discussed even if they declined (Discuss DNR or withdrawal of care, Hospice)? DNR status @ -No What co-morbidities impacted this encounter? (DM, HTN, Smoking, COPD, CAD, Cancer, CVA, ARF, Chemo, Hep., AIDS, mental health diagnosis, sleep apnea, morbid obesity)? @ -None Was patient admitted / discharged? Hospital course, mention meds given and route, prescriptions, significant lab abnormalities, going to OR and other pertinent info. @ -Based on the patient's presentation and physical exam, we will obtain general altered mental status workup including CT brain. Patient will be symptomatically treat with IV fluids, lidocaine patch, dose of Tylenol. He was in agreement this plan. Vitals are currently within acceptable limits. Chest x-ray and CT brain negative for any obvious acute process. Laboratory amy dies are also within acceptable limits. Patient states he is intermittently having the hallucinations. We will admit the patient for better pain control as well as evaluation by neurology. Patient and family in agreement this plan. Consult placed to neurology. Consult placed to his oncologist Dr. Peralta. Patient was in agreement this plan. I spoke with the admitting provider, Dr. Ambrose who accepted the admission. Undiagnosed new problem with uncertain prognosis? @ -No Drug Therapy requiring intensive monitoring for toxicity (Heparin, Nitro, Insulin, Cardizem)? @ -No Were any procedures done? @ -No Diagnosis/symptom? @ -Chronic pain, hallucinations, dehydration Acute, or Chronic, or Acute on Chronic? @ -Acute Uncomplicated (without systemic symptoms) or Complicated (systemic symptoms)? @ -Complicated Side effects of treatment? @ -None Exacerbation, Progression, or Severe Exacerbation] @ -No Poses a threat to life or bodily function? @ -Potentially, yes - Lab Data Result diagrams: 07/18/24 10:20 07/18/24 10:20 Lab Results 07/18/24 07/18/24 07/18/24 Range/Units 10:16 10:20 10:20 WBC 4.64 (4.50-10.00) 10*3/uL RBC 3.24 L (4.40-5.60) 10*6/uL Hgb 10.8 L (13.0-17.0) g/dL Hct 32.6 L (39.6-50.0) % MCV 100.6 H (80.0-97.0) fL MCH 33.3 H (27.0-32.0) pg MCHC 33.1 (32.0-37.0) g/dL Plt Count 198 (140-440) 10*3/uL MPV 9.5 (9.5-12.2) fL Immature Gran % (Auto) 0.4 % Neutrophils % 83.1 % Lymphocytes % 9.5 % Monocytes % 6.0 % Eosinophils % 0.6 % Basophils % 0.4 % Immature Gran # 0.02 (0.00-0.04) 10*3/uL Neutrophils # 3.85 (1.80-7.70) 10*3/uL Lymphocytes # 0.44 L (0.90-5.00) 10*3/uL Monocytes # 0.28 (0.20-1.00) 10*3/uL Eosinophils # 0.03 L (0.04-0.35) 10*3/uL Basophils # 0.02 (0.00-0.10) 10*3/uL PT 11.4 (10.0-12.5) sec INR 1.0 (<1.2) APTT 23.9 (22.0-30.0) sec Sodium (137-145) mmol/L Potassium (3.5-5.1) mmol/L Chloride (98-107) mmol/L Carbon Dioxide (22-30) mmol/L Anion Gap mmol/L BUN (9-20) mg/dL Creatinine (0.66-1.25) mg/dL Est GFR (CKD-EPI)AfAm (>60 ml/min/1.73 sqM) Est GFR (CKD-EPI)NonAf (>60 ml/min/1.73 sqM) Glucose (74-99) mg/dL POC Glucose (mg/dL) 87 (70-110) mg/dL POC Glu Asbestos Hazard Abatement Worker ID Norris Razo Calcium (8.4-10.2) mg/dL Magnesium (1.6-2.3) mg/dL Total Bilirubin (0.2-1.3) mg/dL AST (17-59) U/L ALT (4-49) U/L Alkaline Phosphatase (38-126) U/L Ammonia (<30) umol/L Creatine Kinase (55-170) U/L Total Protein (6.3-8.2) g/dL Albumin (3.5-5.0) g/dL Urine Color Urine Appearance (Clear) Urine pH (5.0-8.0) Ur Specific [place] (1.001-1.035) Urine Protein (Negative) Urine Glucose (UA) (Negative) Urine Ketones (Negative) Urine Blood (Negative) Urine Nitrite (Negative) Urine Bilirubin (Negative) Urine Urobilinogen (<2.0) mg/dL Ur Leukocyte Esterase (Negative) Salicylates mg/dL Urine Opiates Screen (NotDetected) Ur Oxycodone Screen (NotDetected) Urine Methadone Screen (NotDetected) Acetaminophen ug/mL Ur Barbiturates Screen (NotDetected) U Tricyclic Antidepress (NotDetected) Ur Phencyclidine Scrn (NotDetected) Ur Amphetamines Screen (NotDetected) U Methamphetamines Scrn (NotDetected) U Benzodiazepines Scrn (NotDetected) Urine Cocaine Screen (NotDetected) U Marijuana (THC) Screen (NotDetected) Serum Alcohol mg/dL 07/18/24 07/18/24 07/18/24 Range/Units 10:20 10:20 10:49 WBC (4.50-10.00) 10*3/uL RBC (4.40-5.60) 10*6/uL Hgb (13.0-17.0) g/dL Hct (39.6-50.0) % MCV (80.0-97.0) fL MCH (27.0-32.0) pg MCHC (32.0-37.0) g/dL Plt Count (140-440) 10*3/uL MPV (9.5-12.2) fL Immature Gran % (Auto) % Neutrophils % % Lymphocytes % % Monocytes % % Eosinophils % % Basophils % % Immature Gran # (0.00-0.04) 10*3/uL Neutrophils # (1.80-7.70) 10*3/uL Lymphocytes # (0.90-5.00) 10*3/uL Monocytes # (0.20-1.00) 10*3/uL Eosinophils # (0.04-0.35) 10*3/uL Basophils # (0.00-0.10) 10*3/uL PT (10.0-12.5) sec INR (<1.2) APTT (22.0-30.0) sec Sodium 137 (137-145) mmol/L Potassium 4.3 (3.5-5.1) mmol/L Chloride 108 H (98-107) mmol/L Carbon Dioxide 26 (22-30) mmol/L Anion Gap 3 mmol/L BUN 13 (9-20) mg/dL Creatinine 0.74 (0.66-1.25) mg/dL Est GFR (CKD-EPI)AfAm >90 (>60 ml/min/1.73 sqM) Est GFR (CKD-EPI)NonAf >90 (>60 ml/min/1.73 sqM) Glucose 89 (74-99) mg/dL POC Glucose (mg/dL) (70-110) mg/dL POC Glu Asbestos Hazard Abatement Worker ID Calcium 8.7 (8.4-10.2) mg/dL Magnesium 2.1 (1.6-2.3) mg/dL Total Bilirubin 0.8 (0.2-1.3) mg/dL AST 24 (17-59) U/L ALT 16 (4-49) U/L Alkaline Phosphatase 144 H (38-126) U/L Ammonia <9 (<30) umol/L Creatine Kinase 38 L (55-170) U/L Total Protein 5.6 L (6.3-8.2) g/dL Albumin 2.8 L (3.5-5.0) g/dL Urine Color Urine Appearance (Clear) Urine pH (5.0-8.0) Ur Specific [place] (1.001-1.035) Urine Protein (Negative) Urine Glucose (UA) (Negative) Urine Ketones (Negative) Urine Blood (Negative) Urine Nitrite (Negative) Urine Bilirubin (Negative) Urine Urobilinogen (<2.0) mg/dL Ur Leukocyte Esterase (Negative) Salicylates <1.0 mg/dL Urine Opiates Screen Not Detected (NotDetected) Ur Oxycodone Screen Detected H (NotDetected) Urine Methadone Screen Not Detected (NotDetected) Acetaminophen 23.5 ug/mL Ur Barbiturates Screen Not Detected (NotDetected) U Tricyclic Antidepress Not Detected (NotDetected) Ur Phencyclidine Scrn Not Detected (NotDetected) Ur Amphetamines Screen Not Detected (NotDetected) U Methamphetamines Scrn Not Detected (NotDetected) U Benzodiazepines Scrn Detected H (NotDetected) Urine Cocaine Screen Not Detected (NotDetected) U Marijuana (THC) Screen Not Detected (NotDetected) Serum Alcohol <10 mg/dL 07/18/24 Range/Units 10:49 WBC (4.50-10.00) 10*3/uL RBC (4.40-5.60) 10*6/uL Hgb (13.0-17.0) g/dL Hct (39.6-50.0) % MCV (80.0-97.0) fL MCH (27.0-32.0) pg MCHC (32.0-37.0) g/dL Plt Count (140-440) 10*3/uL MPV (9.5-12.2) fL Immature Gran % (Auto) % Neutrophils % % Lymphocytes % % Monocytes % % Eosinophils % % Basophils % % Immature Gran # (0.00-0.04) 10*3/uL Neutrophils # (1.80-7.70) 10*3/uL Lymphocytes # (0.90-5.00) 10*3/uL Monocytes # (0.20-1.00) 10*3/uL Eosinophils # (0.04-0.35) 10*3/uL Basophils # (0.00-0.10) 10*3/uL PT (10.0-12.5) sec INR (<1.2) APTT (22.0-30.0) sec Sodium (137-145) mmol/L Potassium (3.5-5.1) mmol/L Chloride (98-107) mmol/L Carbon Dioxide (22-30) mmol/L Anion Gap mmol/L BUN (9-20) mg/dL Creatinine (0.66-1.25) mg/dL Est GFR (CKD-EPI)AfAm (>60 ml/min/1.73 sqM) Est GFR (CKD-EPI)NonAf (>60 ml/min/1.73 sqM) Glucose (74-99) mg/dL POC Glucose (mg/dL) (70-110) mg/dL POC Glu Asbestos Hazard Abatement Worker ID Calcium (8.4-10.2) mg/dL Magnesium (1.6-2.3) mg/dL Total Bilirubin (0.2-1.3) mg/dL AST (17-59) U/L ALT (4-49) U/L Alkaline Phosphatase (38-126) U/L Ammonia (<30) umol/L Creatine Kinase (55-170) U/L Total Protein (6.3-8.2) g/dL Albumin (3.5-5.0) g/dL Urine Color Yellow Urine Appearance Clear (Clear) Urine pH 5.5 (5.0-8.0) Ur Specific [place] 1.034 (1.001-1.035) Urine Protein Negative (Negative) Urine Glucose (UA) Negative (Negative) Urine Ketones Negative (Negative) Urine Blood Negative (Negative) Urine Nitrite Negative (Negative) Urine Bilirubin Negative (Negative) Urine Urobilinogen <2.0 (<2.0) mg/dL Ur Leukocyte Esterase Negative (Negative) Salicylates mg/dL Urine Opiates Screen (NotDetected) Ur Oxycodone Screen (NotDetected) Urine Methadone Screen (NotDetected) Acetaminophen ug/mL Ur Barbiturates Screen (NotDetected) U Tricyclic Antidepress (NotDetected) Ur Phencyclidine Scrn (NotDetected) Ur Amphetamines Screen (NotDetected) U Methamphetamines Scrn (NotDetected) U Benzodiazepines Scrn (NotDetected) Urine Cocaine Screen (NotDetected) U Marijuana (THC) Screen (NotDetected) Serum Alcohol mg/dL - EKG Data -: EKG Interpreted by Me EKG Comments: 12-lead Electrocardiogram Interpretation Note EKG was reviewed and interpreted by myself. 12-lead ECG performed at 1014 is interpreted by me as revealing normal sinus rhythm at a rate of 68 beats per minute. [place] is normal. [place] interval is 133 ms, QRS durations 84 ms, QTc is 404 ms.. There were no ST or T wave abnormalities to suggest myocardial ischemia or injury. R wave progression across the precordium was satisfactory. By my interpretation this EKG is non-diagnostic for acute ischemia. Disposition Clinical Impression: Dehydration, Chronic pain, Hallucinations Disposition: ADMITTED IP TO THIS HOSP Condition: Stable Referrals: Moreno Vasques DO [Primary Care Provider] - 1-2 days Time of Disposition: 12:28
[2024-07-18 10:19] LABS: Glucose,Whole Blood 87 mg/dL (70-110)
[2024-07-18 10:26] LABS: Basophils # (A) 0.02 10*3/uL (0.00-0.10); Basophils % (A) 0.4 %; Eosinophils # (A) 0.03 10*3/uL (0.04-0.35); Eosinophils % (A) 0.6 %; HCT 32.6 % (39.6-50.0); HGB 10.8 g/dL (13.0-17.0); Lymphocytes # (A) 0.44 10*3/uL (0.90-5.00); Lymphocytes % (A) 9.5 %; MCH 33.3 pg (27.0-32.0); MCHC 33.1 g/dL (32.0-37.0); MCV 100.6 fL (80.0-97.0); Mean Platelet Volume 9.5 fL (9.5-12.2); Monocytes # (A) 0.28 10*3/uL (0.20-1.00); Neutrophils # (A) 3.85 10*3/uL (1.80-7.70); Neutrophils % (A) 83.1 %; Platelet Count 198 10*3/uL (140-440); RBC 3.24 10*6/uL (4.40-5.60); RDW 12.7 % (11.5-14.5); WBC 4.64 10*3/uL (4.50-10.00)
[2024-07-18 10:38] LABS: Partial Thromboplastin Time 23.9 sec (22.0-30.0); Prothrombin Time 11.4 sec (10.0-12.5)
[2024-07-18 10:43] LABS: ALT 16 U/L (4-49); AST 24 U/L (17-59); Acetaminophen 23.5 ug/mL; African American GFR (CKD) >90 (>60 ml/min/1.73 sqM); Albumin 2.8 g/dL (3.5-5.0); Alcohol <10 mg/dL; Alkaline Phosphatase 144 U/L (38-126); Anion Gap 3 mmol/L; Blood Urea Nitrogen 13 mg/dL (9-20); Calcium 8.7 mg/dL (8.4-10.2); Carbon Dioxide 26 mmol/L (22-30); Chloride 108 mmol/L (98-107); Creatine Kinase 38 U/L (55-170); Glucose 89 mg/dL (74-99); Magnesium 2.1 mg/dL (1.6-2.3); Non-African American GFR(CKD) >90 (>60 ml/min/1.73 sqM); Potassium 4.3 mmol/L (3.5-5.1); Salicylate <1.0 mg/dL; Sodium 137 mmol/L (137-145); Total Bilirubin 0.8 mg/dL (0.2-1.3); Total Protein 5.6 g/dL (6.3-8.2)
[2024-07-18] MEDS: SODIUM CHLORIDE 0.9% 1,000 ML IV ONE (10:44)
[2024-07-18] MEDS: ACETAMINOPHEN TAB 325 MG TAB PO STA (10:46)
[2024-07-18] MEDS: LIDOCAINE 4% PATCH TOPICAL STA (10:47)
--- NOTE | 2024-07-18 10:47 | CT ---
EXAMINATION TYPE: CT brain wo con DATE OF EXAM: 07/18/2024 10:40 AM COMPARISON: 12/31/2023 CLINICAL INDICATION: Male, 69 years old with history of Altered mental status, Altered mental status, history of pancreatic cancer, confusion TECHNIQUE: Examination was done in axial plane without intravenous contrast. Coronal and sagittal r econstructions performed. CT DLP: 1199.4 mGycm, Automated exposure control for dose reduction was used. FINDINGS: There is no evidence of acute intracranial hemorrhage, acute ischemic changes, mass, mass-effect, or extra-axial fluid collection. There is no effacement of cerebral sulci or basal subarachnoid cister ns. There is no hydrocephalus. There is no midline shift. Castillo-white matter distinction is preserv ed. Mild volume loss overlying the bilateral cerebral convexities. Mild patchy white matter hypodensities redemonstrated particularly along the left subinsular region. Paranasal sinuses and mastoid air cells are pneumatized. The globes are intact. IMPRESSION: Similar mild cerebral atrophy and mild burden of chronic small vessel ischemic disease. No acute intr acranial abnormality seen. [facility], , 07/18/2024 10:44 AM
--- NOTE | 2024-07-18 10:58 | XR ---
EXAMINATION TYPE: XR chest 2V DATE OF EXAM: 07/18/2024 10:44 AM COMPARISON: Chest radiographs from 10/03/2023 CLINICAL INDICATION: Male, 69 years old with history of altered mental status; [facility] TECHNIQUE: XR chest 2V Frontal and lateral views of the chest. FINDINGS: Lungs/Pleura: There is no evidence of pleural effusion, focal consolidation, or pneumothorax. Pulmonary vascularity: Unremarkable. Heart/mediastinum: Cardiomediastinal silhouette is unremarkable. Musculoskeletal: No acute osseous pathology. Other findings: None IMPRESSION: No acute cardiopulmonary disease/process. [facility], , 07/18/2024 10:56 AM
[2024-07-18 11:13] LABS: Appearance,Urine Clear (Clear); Bilirubin,Urine Negative (Negative); Blood,Urine Negative (Negative); Color,Urine Yellow; Glucose,Urine (UA) Negative (Negative); Ketones,Urine Negative (Negative); Leukocyte Esterase,Urine Negative (Negative); Nitrite,Urine Negative (Negative); PH, Urine 5.5 (5.0-8.0); Protein,Urine Negative (Negative); Specific Gravity,Urine 1.034 (1.001-1.035); Urobilinogen,Urine <2.0 mg/dL (<2.0)
[2024-07-18 11:34] LABS: Amphetamine Screen,Urine Not Detected (NotDetected); Barbiturate Screen,Urine Not Detected (NotDetected); Benzodiazepines Screen,Urine Detected (NotDetected); Cocaine Screen,Urine Not Detected (NotDetected); Methadone Screen, Urine Not Detected (NotDetected); Opiate Screen,Urine Not Detected (NotDetected); Oxycodone Screen, Urine Detected (NotDetected); Phencyclidine Screen,Urine Not Detected (NotDetected); Tricyclic Antidepressant,Urine Not Detected (NotDetected); Urn Cannabinoid Scrn Not Detected (NotDetected)
[2024-07-18] MEDS: KETOROLAC 15 MG/ML 1 ML VIAL IVP STA (12:24)
[2024-07-18] MEDS: traMADol 50 MG TAB PO STA (12:25)
[2024-07-18] MEDS ORDERED: NALOXONE 0.4 MG/ML 1 ML VIAL IV PRN (12:28)
[2024-07-18] MEDS: SODIUM CHLORIDE 0.9% 1,000 ML IV SCH (14:02)
--- NOTE | 2024-07-18 15:49 | P.HPIM ---
History of Present Illness H&P Date: 07/18/24 Patient is a 69-year-old male with history of pancreatic cancer with local and distant metastasis, hypertension, dyslipidemia presenting for new hallucinations as well as difficulty with pain control. Family present at bedside. Per patient and family, he has been experiencing auditory hallucinations for the last week or so ever since he was started on oxycodone. He was previously on o ral [place] 5 and then 7.5 with not much relief. He was having some jerky movements with [place]. He claims that it feels like twitching. He did not have significant hallucinations with [place]. He claims that he had something similar after his Whipple surgery. In terms of his pancreatic cancer, he was previously on chemotherapy, and now had radiation therapy for bony metastasis. In the ED, temperature was 97.9, pulse 92, respiratory rate 20, blood pressure 106/70, saturating at 99% on room air. WBC 4.6, hemoglobin 10.8, creatinine 0.74, magnesium 2.1, total bili 0.8, AST 24, ALT 16, ALP 144, urinalysis negative, toxicology positive for oxycodone and benzos. CT head did not show any acute process or metastatic disease. Chest x-ray independently interpreted, shows no opacities. Patient given oral Tylenol, IV Toradol, lidocaine patch, oral tramadol in the ED. Neurology and oncology consulted. Patient being admitted as observation for further neurologic evaluation as well as pain co ntrol. Pertinent positives and negatives as discussed in HPI, a complete review of systems was performed and all other systems are negative. Patient seen and examined at bedside. Vital signs reviewed General: nontoxic, no distress, appears at stated age, cachectic Derm: warm, dry Head: atraumatic, normocephalic, symmetric Eyes: EOMI, no lid lag, anicteric sclera, pupils equal round reactive to light ENT: Nose and ears atraumatic Neck: No thyromegaly, supple Mouth: no lip lesion, mucus membranes moist Cardiovascular: S1S2 reg, no murmur, no edema Lungs: clear to auscultation bilateral, no rhonchi, no rales, no wheeze, no accessory muscle use Abdominal: soft, nontender to palpation, no guarding, no appreciable organomegaly Ext: no gross muscle atrophy, muscle strength muscle strength 5 out of 5 in all 4 extremities, no contractures Neuro: CN II-XII grossly intact Psych: Alert, oriented, appropriate affect Assessment/Plan: Active: Acute encephalopathy, intermittent hallucinations - CT head did not show any acute process - Will get brain MRI with and without contrast - Neurology consulted, pending recommendations - Hallucinations could also be secondary to opiate use, continue to hold oxycodone Pancreatic cancer Metastatic disease Uncontrolled pain Severe cachexia - Tylenol as needed, IV Toradol as needed, also started on oral Dilaudid as needed, monitor for sedation - Oncology consulted, pending recommendations Chronic: GERD Hypertension, not on any meds Dyslipidemia, not on any meds The patient is admitted with an anticipated less than 2 midnight stay as obser vation status for evaluation of acute encephalopathy. Surrogate decision-maker: Spouse CODE STATUS: No code DVT prophylaxis: Lovenox Anticipated discharge date: Pending clinical course Anticipated discharge place: Pending clinical course A total of 55 minutes was spent on the care of this complex patient more than 50% of the time was spent in counseling and care coordination. Past Medical History Past Medical History: Cancer, Hyperlipidemia, Hypertension, Osteoarthritis (OA) Additional Past Medical History / Comment(s): torn bicep, positive cologard, pancreatic CA History of Any Multi-Drug Resistant Organisms: None Reported Past Surgical History: Hernia Repair, Tonsillectomy Additional Past Surgical History / Comment(s): whipple surgery 12/28 Past Anesthesia/Blood Transfusion Reactions: No Reported Reaction Past Psychological History: No Psychological Hx Reported Smoking Status: Never smoker - Past Family History Mother Family Medical History: No Reported History Medications and Allergies Home Medications Medication Instructions Recorded Confirmed Type Ondansetron [Zofran] 4 mg PO Q4H PRN 08/31/22 07/18/24 History Pantoprazole [Protonix] 40 mg PO DAILY 07/18/24 07/18/24 History Allergies Allergy/AdvReac Type Severity Reaction Status Date / Time hydrocodone AdvReac jerking/[place]mond Verified 07/18/24 10:47 lucinations /confusion oxycodone AdvReac jerking/desmond Verified 07/18/24 10:47 lucinations /confusion Physical Exam Vitals: Vital Signs Temp Pulse Resp BP Pulse Ox 07/18/24 12:16 57 L 18 112/82 99 07/18/24 09:32 97.9 F 92 20 106/70 99 Intake and Output 07/17/24 07/18/24 07/18/24 22:59 06:59 14:59 Other: Weight 49.895 kg Results CBC & Chem 7: 07/18/24 10:20 07/18/24 10:20 Labs: Abnormal Lab Results - Last 24 Hours (Table) 07/18/24 07/18/24 07/18/24 Range/Units 10:20 10:20 10:49 RBC 3.24 L (4.40-5.60) 10*6/uL Hgb 10.8 L (13.0-17.0) g/dL Hct 32.6 L (39.6-50.0) % MCV 100.6 H (80.0-97.0) fL MCH 33.3 H (27.0-32.0) pg Lymphocytes # 0.44 L (0.90-5.00) 10*3/uL Eosinophils # 0.03 L (0.04-0.35) 10*3/uL Chloride 108 H (98-107) mmol/L Alkaline Phosphatase 144 H (38-126) U/L Creatine Kinase 38 L (55-170) U/L Total Protein 5.6 L (6.3-8.2) g/dL Albumin 2.8 L (3.5-5.0) g/dL Ur Oxycodone Screen Detected H (NotDetected) U Benzodiazepines Scrn Detected H (NotDetected)
[2024-07-19] MEDS: KETOROLAC 15 MG/ML 1 ML VIAL IVP PRN (05:38)
[2024-07-19 05:52] LABS: Basophils # (A) 0.04 10*3/uL (0.00-0.10); Basophils % (A) 0.7 %; Eosinophils # (A) 0.05 10*3/uL (0.04-0.35); Eosinophils % (A) 0.9 %; HGB 10.5 g/dL (13.0-17.0); Lymphocytes # (A) 0.57 10*3/uL (0.90-5.00); Lymphocytes % (A) 10.4 %; MCHC 31.8 g/dL (32.0-37.0); MCV 100.6 fL (80.0-97.0); Mean Platelet Volume 9.5 fL (9.5-12.2); Monocytes % (A) 5.5 %; Neutrophils # (A) 4.52 10*3/uL (1.80-7.70); Neutrophils % (A) 82.1 %; Platelet Count 229 10*3/uL (140-440); RBC 3.28 10*6/uL (4.40-5.60); RDW 12.8 % (11.5-14.5)
[2024-07-19 06:14] LABS: ALT 17 U/L (4-49); AST 27 U/L (17-59); African American GFR (CKD) >90 (>60 ml/min/1.73 sqM); Albumin 2.9 g/dL (3.5-5.0); Albumin/Globulin Ratio 1.1; Alkaline Phosphatase 148 U/L (38-126); Anion Gap 6 mmol/L; Blood Urea Nitrogen 14 mg/dL (9-20); Calcium 9.5 mg/dL (8.4-10.2); Carbon Dioxide 24 mmol/L (22-30); Chloride 109 mmol/L (98-107); Globulin 2.7 g/dL; Glucose 77 mg/dL (74-99); Non-African American GFR(CKD) >90 (>60 ml/min/1.73 sqM); Potassium 4.4 mmol/L (3.5-5.1); Sodium 139 mmol/L (137-145); Total Bilirubin 0.7 mg/dL (0.2-1.3); Total Protein 5.6 g/dL (6.3-8.2)
[2024-07-19] MEDS: ENOXAPARIN 40 MG/0.4 ML SYRINGE SQ SCH (09:02)
[2024-07-19] MEDS: PANTOPRAZOLE 40 MG TABLET PO SCH (09:02)
[2024-07-19] MEDS: HYDROmorphone 2 MG TAB PO PRN (09:30)
--- NOTE | 2024-07-19 11:08 | MR ---
EXAMINATION TYPE: MR brain wo/w con DATE OF EXAM: 07/19/2024 10:48 AM COMPARISON: CT 07/18/2024.. CLINICAL INDICATION: Male, 69 years old with history of pancreatic cancers, new hallucinations; PHH, pancreatic cancers, new hallucinations TECHNIQUE: Multi planar, multi sequence imaging was performed through the brain including: T1, T2, In version recovery, susceptibility weighted imaging and gradient echo imaging and Diffusion weighted im aging. The patient was then given intravenous contrast and multi planar, T1 fat-saturation images wer e obtained. IV Contrast: 5 mL Gadobutrol FINDINGS: Mild cerebral atrophy with proportional dilation of ventricular system. Diffusion-weighted imaging s hows no evidence of restricted diffusion to suggest acute/subacute infarct. Intracranial arterial dustin w voids are maintained. Midline structures show no abnormality. Scattered foci of high T2 signal inte nsity are seen within the periventricular white matter. The susceptibility weighted images do not rev eal any evidence for micro-hemorrhage. After administration of gadolinium, no abnormal enhancement is seen. The bone marrow signal is within normal limits. Paranasal sinuses and mastoid air cells: No significant paranasal sinus disease. Visualized orbits: Orbital contents are intact. IMPRESSION: Motion limited exam. 1. No evidence of intracranial mass, acute/subacute infarct, or abnormal enhancement. 2. Nonspecific white matter changes, likely related to small vessel ischemic disease. [facility], , 07/19/2024 11:05 AM
--- NOTE | 2024-07-19 12:24 | P.PN ---
Subjective Progress Note Date: 07/19/24 Hospital Course: 69-year-old male with history of pancreatic cancer with local and distant meta stasis, hypertension, dyslipidemia presenting for new hallucinations as well as difficulty with pain control. n the ED, temperature was 97.9, pulse 92, respiratory rate 20, blood pressure 106/70, saturating at 99% on room air. WBC 4.6, hemoglobin 10.8, creatinine 0.74, magnesium 2.1, total bili 0.8, AST 24, ALT 16, ALP 144, urinalysis negative, toxicology positive for oxycodone and benzos. CT head did not show any acute process or metastatic disease. Chest x- ray independently interpreted, shows no opacities. Patient given oral Tylenol, IV Toradol, lidocaine patch, oral tramadol in the ED. Neurology and oncology consulted. Patient being admitted as observation for further neurologic thompson luation as well as pain control. Pertinent Imaging: [] Subjective: Patient seen and examined at bedside. No acute events overnight. Hallucinations not evident overnight Pertinent positives and negatives as discussed above, a complete review of systems was performed and all other systems are negative. Vital signs reviewed General: nontoxic, no distress, appears at stated age, cachectic Derm: warm, dry Head: atraumatic, normocephalic, symmetric Eyes: EOMI, no lid lag, anicteric sclera, pupils equal round reactive to light ENT: Nose and ears atraumatic Neck: No thyromegaly, supple Mouth: no lip lesion, mucus membranes moist Cardiovascular: S1S2 reg, no murmur, no edema Lungs: clear to auscultation bilateral, no rhonchi, no rales, no wheeze, no accessory muscle use Abdominal: soft, nontender to palpation, no guarding, no appreciable organomegaly Ext: no gross muscle atrophy, muscle strength muscle strength 5 out of 5 in all 4 extremities, no contractures Neuro: CN II-XII grossly intact Psych: Alert, oriented, appropriate affect Data Reviewed Today: Pertinent Labs: WBC 5.5, hemoglobin 10.5, potassium 4.4, creatinine 0.64 Imaging: Brain MRI did not show any evidence of intracranial mass or any other acute process. Assessment and Plan: Active: Acute encephalopathy, intermittent hallucinations - CT head did not show any acute process - Brain MRI did not show any metastatic disease - Neurology consulted, pending recommendations - Hallucinations could also be secondary to opiate use, continue to hold oxycodone Pancreatic cancer Metastatic disease Uncontrolled pain Severe cachexia - Tylenol as needed, IV Toradol as needed, also started on oral Dilaudid as needed, monitor for sedation - Oncology consulted, pending recommendations Chronic: GERD Hypertension, not on any meds Dyslipidemia, not on any meds DVT ppx: Lovenox Code status: Full code Anticipated discharge place: Home Anticipated discharge time: 24 to 48 hours Objective - Vital Signs Vital signs: Vital Signs Temp 97.9 F 07/19/24 07:51 Pulse 64 07/19/24 07:51 Resp 18 07/19/24 07:51 BP 120/73 07/19/24 07:51 Pulse Ox 100 07/19/24 07:51 FiO2 Intake & Output 07/18/24 07/19/24 07/19/24 18:59 06:59 18:59 Intake Total 200 Balance 200 Weight 49.895 kg Intake: Oral 200 Other: Voiding Method Toilet Urinal # Voids 1 2 # Bowel Movements 1 - Labs CBC & Chem 7: 07/19/24 05:16 07/19/24 05:16 Labs: Abnormal Lab Results - Last 24 Hours (Table) 07/19/24 07/19/24 Range/Units 05:16 05:16 RBC 3.28 L (4.40-5.60) 10*6/uL Hgb 10.5 L (13.0-17.0) g/dL Hct 33.0 L (39.6-50.0) % MCV 100.6 H (80.0-97.0) fL MCHC 31.8 L (32.0-37.0) g/dL Lymphocytes # 0.57 L (0.90-5.00) 10*3/uL Chloride 109 H (98-107) mmol/L Creatinine 0.64 L (0.66-1.25) mg/dL Alkaline Phosphatase 148 H (38-126) U/L Total Protein 5.6 L (6.3-8.2) g/dL Albumin 2.9 L (3.5-5.0) g/dL
--- NOTE | 2024-07-19 15:51 | P.CONS ---
History of Present Illness - Reason for Consult Consult date: 07/19/24 pancreatic carcinoma, pain Requesting physician: Hoang Matamoros - Chief Complaint hallucinations - History of Present Illness Mr. Dudley is a 69-year-old male patient of Dr. Hannah also with a history of pancreatic adenocarcinoma, diagnosed in early 2022. Patient reported pruritus as far back as January 2022, diffuse, kept him awake. This became associated with anorexia, early satiety and a weight loss of 25 to 30 pounds in a short period of time. He developed obstructive jaundice with dark urine in May 2022. ERCP with [facility]US 05/15/2022 at [facility], noted 26 x 18 mm irregular hypoechoic mass in the pancreatic head, dilation of the common bile duct, 15 mm stricture i n the intrapancreatic portion of the bile duct with upstream dilation. He had metal stent placed, FNA of the pancreatic mass positive for adenocarcinoma. Staging including CT of chest and pancreas, 2.6 x 2.1 x 2.2 cm hypoenhancing mass in the pancreatic head with mild distal pancreatic ductal dilation measuring 6 mm at the level of the pancreatic body. The mass was abutting the SM[facility], no evidence of metastatic disease. Borderline peripancreatic and retroperitoneal LAD. Clinical stage IIb (T2 N0 M0) multiple approaches to treatment were discussed. Patient opted to begin with neoadjuvant chemotherapy. He completed 4 cycles of treatment 11/02/2022. Whipple procedure 12/11/2022. yp T2 N2 stage III disease adjuvant Gemzar and Abraxane completing 6 cycles April 2023. Later in April, CT scan done for back pain, 05/04/2023, new sacral lesion found, PET/CT showed that the lesion was FDG avid along with avidity at the site of surgery. [facility] to be done to the sacral lesion. Repeat PET scan 09/30/2023 increased FDG activity at the pancreatic neck as well as retroperitoneal lymph nodes. [place] to be postsurgical changes. CT CAP December 2023, no evidence of metastatic disease. CA 19-[address] February [address] scan in March 2024 persistent soft tissue prominence.05/20/2024 FDG avidity in the sacrum, decreasing avidity in the anastomotic site. It was felt with the increasing CA 19-9 and the sacral lesion representing oligometastatic disease. Concurrent chemoradiation was recommended. Patient started treatment end of May 2024 completing at the end of June. Patient was seen in the office little over a week ago with complaints of pain at the sacral area as well as persistent diarrhea. Medications were ordered for treatment of the same. Patient was also having discomfort in the left flank. Patient was given pain medications including oxycodone. states that she thinks that the visual and auditory hallucinations have been progressive over the weeks since starting the Oxy. Patient reporting that topical Lidoderm patch helps quite a bit. No reports of fevers, chills, nausea, vomiting, chest pain, diarrhea is stable. Patient states that he did receive some steroids for a few days and that was really helpful with his discomfort. MRI of the brain was done for visual and auditory hallucinations, negative for metastatic disease. Vital signs stable laboratory investigations showing some mild anemia, patient just completed concurrent chemoradiation just about a month ago P Review of Systems 10 point review of systems is negative except as stated in HPI Past Medical History Past Medical History: Cancer, Hyperlipidemia, Hypertension, Osteoarthritis (OA) Additional Past Medical History / Comment(s): torn bicep, positive cologard, pancreatic CA History of Any Multi-Drug Resistant Organisms: None Reported Past Surgical History: Hernia Repair, Tonsillectomy Additional Past Surgical History / Comment(s): whipple surgery 12/28 Past Anesthesia/Blood Transfusion Reactions: No Reported Reaction Past Psychological History: No Psychological Hx Reported Smoking Status: Never smoker - Past Family History Mother Family Medical History: No Reported History Medications and Allergies Home Medications Medication Instructions Recorded Confirmed Type Ondansetron [Zofran] 4 mg PO Q4H PRN 08/31/22 07/18/24 History Pantoprazole [Protonix] 40 mg PO DAILY 07/18/24 07/18/24 History Allergies Allergy/AdvReac Type Severity Reaction Status Date / Time hydrocodone AdvReac jerking/[place] Verified 07/18/24 10:47 lucinations /confusion oxycodone AdvReac jerking/[place] Verified 07/18/24 10:47 lucinations /confusion Physical Exam Vitals: Vital Signs Temp Pulse Resp BP Pulse Ox 07/19/24 13:02 97.9 F 59 L 20 119/74 99 07/19/24 07:51 97.9 F 64 18 120/73 100 07/19/24 01:07 97.7 F 69 16 107/69 98 07/18/24 19:56 16 05/13/25 19:07 97.8 F 63 16 117/76 99 Intake and Output 07/19/24 07/19/24 07/19/24 06:59 14:59 22:59 Other: # Voids 2 # Bowel Movements 1 - Constitutional General appearance: cooperative, no acute distress, thin - EENT Eyes: anicteric sclerae, EOMI ENT: hearing grossly normal, normal oropharynx - Respiratory Respiratory: bilateral: CTA - Cardiovascular Rhythm: regular Heart sounds: normal: S1, S2 Abnormal Heart Sounds: no systolic murmur, no diastolic murmur, no rub, no S3 Gallop, no S4 Gallop, no click, no other leg Peripheral Edema: bilateral: None - Gastrointestinal General gastrointestinal: no absent bowel sounds, no decreased bowel sounds, no distended, no hepatomegaly, no hyperactive bowel sounds, normal bowel sounds, no organomegaly, no rigid, no scaphoid, soft, no splenomegaly, no tenderness, no umbilical hernia, no ventral hernia - Integumentary Integumentary: normal - Neurologic Neurologic: CNII-XII intact - Musculoskeletal Musculoskeletal: generalized weakness, strength equal bilaterally - Psychiatric Psychiatric: A&O x's 3, appropriate affect, intact judgment & insight Results CBC & Chem 7: 07/19/24 05:16 07/19/24 05:16 Labs: Abnormal Lab Results - Last 24 Hours (Table) 07/19/24 07/19/24 Range/Units 05:16 05:16 RBC 3.28 L (4.40-5.60) 10*6/uL Hgb 10.5 L (13.0-17.0) g/dL Hct 33.0 L (39.6-50.0) % MCV 100.6 H (80.0-97.0) fL MCHC 31.8 L (32.0-37.0) g/dL Lymphocytes # 0.57 L (0.90-5.00) 10*3/uL Chloride 109 H (98-107) mmol/L Creatinine 0.64 L (0.66-1.25) mg/dL Alkaline Phosphatase 148 H (38-126) U/L Total Protein 5.6 L (6.3-8.2) g/dL Albumin 2.9 L (3.5-5.0) g/dL Chest x-ray: report reviewed CT Scan - head: report reviewed MRI - head: report reviewed Assessment and Plan (1) Hallucinations Current Visit: Yes Status: Acute Priority: High Code(s): R44.3 - HALLUCINATIONS, UNSPECIFIED SNOMED Code(s): 1320823 (2) Pancreatic adenocarcinoma Current Visit: No Status: Chronic Priority: Medium Code(s): C25.9 - MALIGNANT NEOPLASM OF PANCREAS, UNSPECIFIED SNOMED Code(s): 406719912 Plan: Hallucinations -New onset, patient has never had anything like this before -CT of the head and MRI of the brain, negative for metastatic disease - Quite possibly related to newly prescribed narcotics. These have been stopped. Alternatives to narcotics being used Pain from treatment of malignancy -Suspect sacroiliitis secondary to chemo/radiation treatment - Patient is reporting good pain relief from topical lidoDerm. Continue with the same. Patient did get some relief with short burst of steroids. 8 mg twice daily for 3 days has been ordered. PPI ordered for prevention of steroid gastritis -DC OxyContin -Pain management consult for possible sacral plexus nerve block. Reviewed all of the above with patient and at the bedside. They are agreeable to the same. Doctor attests: I performed a history and physical examination of this patient, developed impression and plan of care. Discussed with dictator. I agree with dictators note, documented as a scribe.
[2024-07-19 16:57] VITALS: BMI 14.9
[2024-07-19] MEDS: dexAMETHasone 4 MG TAB PO SCH (21:51)
--- NOTE | 2024-07-20 09:35 | P.CNNES ---
History of Present Illness Consult date: 07/19/24 Requesting physician: Hoang Matamoros Reason for Consult: AMS, hallucinations History of Present Illness: Patient is a 69-year-old right-handed male with history of metastatic pancreatic cancer, came to the hospital yesterday at 9:23 AM was brought to the hospital for altered mental status and hallucinations. Patient's was also present by the bedside and both of them provided with a history. Patient has pancreatic cancer, with metastasis to the "tailbone". He has significant pain for which she was started on oxycodone on 07/14/2024, about 4 days prior to arrival. He took the first dose on Wednesday at 4 PM, and was taking it about 3 tablets a day. On Wednesday, he started having delusions, like in a constant dream state, thought people were at the house, body was jerking a lot while sleeping. He stopped taking oxycodone and the last dose was taken on Wednesday at 5 AM. Patient's has noticed that he has taken so far 10 tablets in those days. As the mental confusion persisted, he was brought to the hospital yesterday on Wednesday. Family believes that the hallucinations and mental confusion is improving. When he is still falls asleep, and in light sleep, he jerks, like sleep talking dreaming. However it is not as constant as it was in the previous few days. Patient's family believes that in December 2022 after he underwent Whipple surgery, and he was on a lot of pain medications and mainly came home and stopped taking the pain medication he had withdrawal from pain medication and similar symptoms. Patient has just completed 10 radiation treatment on 06/23/2024. He was hurting a lot, therefore was given oxycodone as above. Vital signs on arrival blood pressure 106/70, pulse 92 temperature 97.9. Blood test shows normal WBC hemoglobin 10.8 with elevated MCV 100.6. Platelets are normal. PT PTT normal. Basic metabolic panel, hepatic panel are normal. Ammonia less than 9. CK normal UA negative, urine drug screen positive for benzodiazepine and oxycodone. Blood alcohol level negative. Patient's previous B12 was 434 and MMA 0.34 on 04/13/2023. EKG showed sinus rhythm, chest x-ray showed no acute cardiopulmonary process. CT head revealed similar mild cerebral atrophy and mild burden of chronic small vessel ischemic disease. No acute intracranial abnormality. I personally reviewed CT head, agree with the findings. Patient has been seen by Dr. Anne on 10/04/2019 for for syncopal spell. Patient has history of pancreatic cancer with metastasis. Patient had an EEG performed on 10/04/2023, which revealed no focal slowing or epileptiform discharges. Home medications include Protonix and Zofran. Denies history of hypertension or diabetes. He does not smoke, does not drink. Occasionally smokes cigars. Patient used to walk with cane off and on, but since he underwent radiation therapy, he has been using walker since middle of June 2024. Review of Systems All pertinent positive and negative review of systems mentioned in the HPI. Patient has had weight loss, decreased appetite, weakness, pain, and other review of systems mentioned as per HPI. Past Medical History Past Medical History: Cancer, Hyperlipidemia, Hypertension, Osteoarthritis (OA) Additional Past Medical History / Comment(s): torn bicep, positive cologard, pancreatic CA History of Any Multi-Drug Resistant Organisms: None Reported Past Surgical History: Hernia Repair, Tonsillectomy Additional Past Surgical History / Comment(s): whipple surgery 12/28 Past Anesthesia/Blood Transfusion Reactions: No Reported Reaction Past Psychological History: No Psychological Hx Reported Smoking Status: Never smoker - Past Family History Mother Family Medical History: No Reported History Medications and Allergies Home Medications Medication Instructions Recorded Confirmed Type Ondansetron [Zofran] 4 mg PO Q4H PRN 08/31/22 07/18/24 History Pantoprazole [Protonix] 40 mg PO DAILY 07/18/24 07/18/24 History Allergies Allergy/AdvReac Type Severity Reaction Status Date / Time hydrocodone AdvReac jerking/desmond Verified 07/18/24 10:47 lucinations /confusion oxycodone AdvReac jerking/desmond Verified 07/18/24 10:47 lucinations /confusion Physical Examination - Vital Signs Vital Signs: Vital Signs Temp Pulse Resp BP Pulse Ox 07/19/24 13:02 97.9 F 59 L 20 119/74 99 07/19/24 07:51 97.9 F 64 18 120/73 100 07/19/24 01:07 97.7 F 69 16 107/69 98 07/18/24 19:56 16 07/18/24 19:07 97.8 F 63 16 117/76 99 Intake and Output 07/19/24 07/19/24 07/19/24 06:59 14:59 22:59 Other: # Voids 2 # Bowel Movements 1 Patient is an elderly male, very pleasant, in no acute distress. He appears obviously cachectic. Patient is alert awake oriented to time place and person. He knows it is July 2024 and that he is in [facility] in [facility] and name of the current president. Speech and language functions are normal. Patient can name and repeat very well. No aphasia or dysarthria. Attention, concentration and fund of knowledge is adequate. On cranial nerve examination, pupils are equal, round and reacting to light, visual martinez are full on confrontation, with no neglect on double simultaneous stimulation. Extraocular muscles are intact with no nystagmus. Face is symmetric, tongue protrudes to the midline. Palatal elevation and sensation normal, hearing and shoulder shrug normal, facial sensation normal. On muscle strength testing, he has chronic weakness of bilateral shoulders from severe weight loss. Deltoids are 2 on the right, 3+ left. Biceps, triceps and merchandising manager are normal bilaterally. In the lower limbs hip flexion is 4+ and ankle dorsiflexion 5 bilaterally. Deep tendon reflexes are symmetric 1 at the biceps, 0 brachioradialis, trace at the knees, 0 ankles and plantars are flat. Sensory to touch is equal with no neglect on double simultaneous stimulation. Cerebellar function showed no ataxia for [id number]-kz-qwwt testing. No dysdiadochokinesia. No ataxia for kiyq-hm-sqhz testing on either side. Tone and bulk of muscles normal. Gait deferred.. On general examination, there is no carotid bruit or murmur, S1-S2 audible. Chest is clear on consultation. Abdomen is soft nontender. No organomegaly, bowel sounds present. Peripheral pulses are present. No peripheral edema. Results - Laboratory Findings CBC and BMP: 07/19/24 05:16 07/19/24 05:16 Abnormal Lab Findings: Abnormal Labs 07/18/24 07/18/24 07/18/24 10:20 10:20 10:49 RBC 3.24 L Hgb 10.8 L Hct 32.6 L MCV 100.6 H MCH 33.3 H MCHC Lymphocytes # 0.44 L Eosinophils # 0.03 L Chloride 108 H Creatinine Alkaline Phosphatase 144 H Creatine Kinase 38 L Total Protein 5.6 L Albumin 2.8 L Ur Oxycodone Screen Detected H U Benzodiazepines Scrn Detected H 07/19/24 07/19/24 05:16 05:16 RBC 3.28 L Hgb 10.5 L Hct 33.0 L MCV 100.6 H MCH MCHC 31.8 L Lymphocytes # 0.57 L Eosinophils # Chloride 109 H Creatinine 0.64 L Alkaline Phosphatase 148 H Creatine Kinase Total Protein 5.6 L Albumin 2.9 L Ur Oxycodone Screen U Benzodiazepines Scrn Assessment and Plan Assessment: * Acute delirium, likely due to pain medications (oxycodone). Mentation is improving. * Metastatic pancreatic cancer, with metastasis to the spine with pain. * Cachexia due to above * Macrocytic anemia Plan: * Patient had MRI of the brain with and without contrast today, which revealed no evidence of intracranial mass, acute/subacute infarct or abnormal enhancement. Nonspecific white matter changes, likely related to small vessel ischemic disease. I personally reviewed MRI, agree with the findings. * No other neurological workup indicated. * Recommend avoid opiates, hypnotic sedatives, if possible. * Patient has macrocytosis, we will check B12, folate. * Neurologically clear. Please call neurology if any other concerns. Thank you for the consult.
--- NOTE | 2024-07-20 13:57 | P.PN ---
Subjective Progress Note Date: 07/20/24 Hospital Course: 69-year-old male with history of pancreatic cancer with local and distant meta stasis, hypertension, dyslipidemia presenting for new hallucinations as well as difficulty with pain control. n the ED, temperature was 97.9, pulse 92, respiratory rate 20, blood pressure 106/70, saturating at 99% on room air. WBC 4.6, hemoglobin 10.8, creatinine 0.74, magnesium 2.1, total bili 0.8, AST 24, ALT 16, ALP 144, urinalysis negative, toxicology positive for oxycodone and benzos. CT head did not show any acute process or metastatic disease. Chest x- ray independently interpreted, shows no opacities. Patient given oral Tylenol, IV Toradol, lidocaine patch, oral tramadol in the ED. Neurology and oncology consulted. Patient being admitted as observation for further neurologic thompson luation as well as pain control. Subjective: Patient seen and examined at bedside. No acute events overnight. Was confused overnight, having hallucinations this morning. Pertinent positives and negatives as discussed above, a complete review of systems was performed and all other systems are negative. Vital signs reviewed General: nontoxic, no distress, appears at stated age, cachectic Derm: warm, dry Head: atraumatic, normocephalic, symmetric Eyes: EOMI, no lid lag, anicteric sclera, pupils equal round reactive to light ENT: Nose and ears atraumatic Neck: No thyromegaly, supple Mouth: no lip lesion, mucus membranes moist Cardiovascular: S1S2 reg, no murmur, no edema Lungs: clear to auscultation bilateral, no rhonchi, no rales, no wheeze, no accessory muscle use Abdominal: soft, nontender to palpation, no guarding, no appreciable organomegaly Ext: no gross muscle atrophy, muscle strength muscle strength 5 out of 5 in all 4 extremities, no contractures Neuro: CN II-XII grossly intact Psych: Alert, oriented, appropriate affect Data Reviewed Today: Pertinent Labs: No new labs Imaging: No new imaging Assessment and Plan: Active: Acute encephalopathy, intermittent hallucinations - CT head did not show any acute process - Brain MRI did not show any metastatic disease - Neurology consulted, folic acid and B12 levels pending - Hallucinations could also be secondary to opiate use, continue to hold oxycodone Pancreatic cancer Metastatic disease Uncontrolled pain Severe cachexia - Tylenol as needed, IV Toradol as needed, also started on oral Dilaudid as needed, monitor for sedation - Oncology consulted, pain management consult - also on dexamethasone oral 8 mg twice daily per oncology Chronic: GERD Hypertension, not on any meds Dyslipidemia, not on any meds DVT ppx: Lovenox Code status: Full code Anticipated discharge place: Home Anticipated discharge time: 24 to 48 hours Objective - Vital Signs Vital signs: Vital Signs Temp 98.7 F 07/20/24 13:18 Pulse 76 07/20/24 13:18 Resp 20 07/20/24 13:18 BP 130/80 07/20/24 13:18 Pulse Ox 97 07/20/24 13:18 FiO2 Intake & Output 07/19/24 07/20/24 07/20/24 18:59 06:59 18:59 Intake Total 900 Balance 900 Weight 49.895 kg Intake: Intake, IV Titration 900 Amount Sodium Chloride 0.9% 1, 900 000 ml @ 75 mls/hr IV . [id number] [facility] Rx#:[id number] Other: Voiding Method Toilet Urinal # Voids 3 1 - Labs CBC & Chem 7: 07/19/24 05:16 07/19/24 05:16
--- NOTE | 2024-07-20 15:37 | P.PAINPG ---
Objective - Vital Signs Vital signs: Vital Signs Temp 98.7 F 07/20/24 13:18 Pulse 76 07/20/24 13:18 Resp 20 07/20/24 13:18 BP 130/80 07/20/24 13:18 Pulse Ox 97 07/20/24 13:18 FiO2 Intake & Output 07/19/24 07/20/24 07/20/24 18:59 06:59 18:59 Intake Total 900 Balance 900 Weight 49.895 kg Intake: Intake, IV Titration 900 Amount Sodium Chloride 0.9% 1, 900 000 ml @ 75 mls/hr IV . [id number] [facility] Rx#:[id number] Other: Voiding Method Toilet Urinal # Voids 3 1 - Labs CBC & Chem 7: 07/19/24 05:16 07/19/24 05:16 PQRS Measure Charge Sheet Comment: HISTORY OF PRESENT ILLNESS: A 69 yr old inpatient male presents today w severe acute lumbosacral pain secondary to BL Sacroiliitis for evaluation. Pt states pain level is provoked at 6 /10 in intensity, constant, localized in the lumbosacral spine, predominantly axial, achy in character w occasional shooting pain towards the hips and groin. Pain is provoked by sitting for periods >15 min. Pain is alleviated by medications (Dilaudid 2mg q4h prn, Toradol 15mg/mL q6h prn, Tyl 650mg PO q6h prn), repositioning and rest . States once the oxycodone medication was stopped, he was able to feel like himself again. He denies abd pain. PMH: OA, Pancreatic CA, Hyperlipidemia, HTN PSH: Whipple (2022), Hernia Repair, Tonsillectomy SH: Negative x3 FH: Mo- No Reported History All: See list Medications include REVIEW OF ORGAN SYSTEMS: CONSTITUTIONAL: No fevers or chills. No recent weight loss. NEUROLOGICAL: + numbness and tingling along the distal extremities. No seizure disorders or headaches. MUSCULOSKELETAL: + pain PSYCHIATRIC: Denies current depression or suicidal thoughts. Physical Examinations : Constitutional : Cooperative , not in acute distress . Neurologic : Cranial nerve II to XII intact. No focal neurological deficits. Psychiatric : alert & oriented x 3. Matching mood & appropriate affect. Judgment & insight intact. Musculoskeletal : Cervical Spine Motor strength in the deltoid and biceps: Normal right side. Normal Left side Motor strength biceps and the wrist extensors: Normal right side . Normal left side Motor strength in the triceps muscle: Normal right side. Normal left side Deep tendon reflexes: Normal at the biceps. Normal at Brachioradialis. Normal at triceps Vertebral body tenderness to deep palpation over Cervical facet loading test: positive bilaterally Spurling test: positive bilaterally Neck distraction test: positive bilaterally Luis Angel sign: positive bilaterally Lumbar spine Motor strength lower extremities ,thigh and legs 5/5 Right side , 5/5 Left side Deep tendon reflexes : Normal Knee Jerk. Normal Ankle Jerk Vertebral body tenderness over Winkler Test positive Lumbar facet Loading Test: positive Right / positive Left Range of motion of the lumbar spine Flexion 30 degrees, extension 10 degrees Straight Leg Raise test: Left/ Right positive at degrees Tony test: positive right / positive left. Severe tenderness over the Sacroiliac joint on the Right / Left sides Gaenslen test: positive bilaterally Seated flexion test: positive bilaterally. Sacral spine : Severe tenderness over the Sacroiliac joint: right side / left side Range of motion: Flexion of the lumbar spine <60 degrees Range of motion: Extension of the lum bar spine <20 degrees Gaenslen's Test positive BL Tony test: positive right side / left side BL positive Thigh Thrust Test Sacral Thrust Test Assessment/ Plan : Sacroiliitis Recommendation of SI #1. Risks, benefits of procedure discussed and patient verbalized understanding. Admits to anti- coagulant use or medical history of diabetes. Protocol for discontinuation/ continuation of medications jeny procedure discussed. All questions answered. I have spent greater than 30 minutes on patient care today. Dr Diallo was available by phone for the evaluation of this patient. The time was used to review the medical records including relevant urine studies and Prescription history (MAPs), review of the available imaging, evaluation and examination of the patient, coordination of care with the medical staff and if applicable referring physicians, as well as creation of the medical record - Pain Location Sacrum Non-Pharmacological Interventions: Inactivity, Position/Reposition Pharmacological Interventions: Discuss Pain Med Options Pain Comment: see MAR for pain assessment - PRN IV Toradol recently given PQRS Narrative: Smoking Status Former smoker Blood Pressure [Left Arm] 130/80 Blood Pressure 110/72 Pain Intensity [Sacrum] 6 Pain Intensity 5 Pain Scale Used Numeric (1 - 10) Scale Used Numeric (1 - 10) Home Medications: Ambulatory Orders Ondansetron [Zofran] 4 mg PO Q4H PRN 08/31/22 Pantoprazole [Protonix] 40 mg PO DAILY 07/18/24 Controlled Substance Measures - Controlled Substance Measures Is patient prescribed a controlled substance at discharge?: No
--- NOTE | 2024-07-20 18:41 | P.PN ---
Subjective Progress Note Date: 07/20/24 Principal diagnosis: pain of malignancy/treatment of malignancy, hallucinations from pain medications, Hx of oligometastatic rectal carcinoma In follow-up today patient reports that he did have unfortunately a rough night, some confusion, agitation. He still has pain in the sacral area. He was seen by Pain Services with plans for sacral plexus block. Objective - Vital Signs Vital signs: Vital Signs Temp 98.7 F 07/20/24 13:18 Pulse 76 07/20/24 13:18 Resp 20 07/20/24 13:18 BP 130/80 07/20/24 13:18 Pulse Ox 97 07/20/24 13:18 FiO2 Intake & Output 07/19/24 07/20/24 07/20/24 18:59 06:59 18:59 Intake Total 900 900 Balance 900 900 Weight 49.895 kg Intake: Intake, IV Titration 900 900 Amount Sodium Chloride 0.9% 1, 900 900 000 ml @ 75 mls/hr IV . [id number] [facility] Rx#:[id number] Other: Voiding Method Toilet Urinal # Voids 3 1 - Constitutional General appearance: Present: cooperative, no acute distress, thin - EENT Eyes: Present: anicteric sclerae, EOMI ENT: Present: hearing grossly normal - Respiratory Details: Respirations unlabored at rest - Cardiovascular Details: Skin warm, well-perfused - Peripheral edema leg Peripheral Edema: bilateral: None - Neurologic Neurologic: Present: CNII-XII intact (Grossly) - Musculoskeletal Musculoskeletal: Present: generalized weakness - Psychiatric Psychiatric: Present: A&O x's 3, appropriate affect, intact judgment & insight - Labs CBC & Chem 7: 07/19/24 05:16 07/19/24 05:16 Assessment and Plan (1) Hallucinations Current Visit: Yes Status: Acute Priority: High Code(s): R44.3 - HALLUCINATIONS, UNSPECIFIED SNOMED Code(s): 2073612 (2) Pancreatic adenocarcinoma Current Visit: No Status: Chronic Priority: Medium Code(s): C25.9 - MALIGNANT NEOPLASM OF PANCREAS, UNSPECIFIED SNOMED Code(s): 568469433 Plan: Hallucinations -New onset, patient has never had anything like this before. Patient did not have hallucinations last night but, he was agitated and confused at times -CT of the head and MRI of the brain, negative for metastatic disease - Quite possibly related to newly prescribed narcotics. These have been stopped. Alternatives to narcotics being used Pain from treatment of malignancy -Suspect sacroiliitis secondary to chemo/radiation treatment - Patient is reporting good pain relief from topical lidoDerm. Continue with the same. Patient did get some relief with short burst of steroids. 8 mg twice daily for 3 days has been ordered. PPI ordered for prevention of steroid gastri tis. Continue for now -DC OxyContin -Pain management has seen patient, plans sacral plexus nerve block tomorrow, agree with the same. Once patient has had his nerve block he is okay from an Oncology standpoint to be discharged once he has been cleared by the Attending and consulting Teofilo khanna. Follow-up appointment with the Medical Oncologist is in the discharge plan.
--- NOTE | 2024-07-21 08:36 | CDI ---
Documentation Clarification Form Date: 07/21/2024 07:59:15 AM From: Veronica Brady RN CCDS Phone: [phone] Admit Date: 07/18/2024 12:31:00 PM Patient Name: Hector Dudley Visit Number: [id number] Discharge Date: ATTENTION: The Clinical Documentation Specialists (CDI) and [facility] Coding Staff appreciate your assistance in clarifying documentation. Please respond to the clarification below the line at the bottom and electronically sign. The CDI & [facility] Coding staff will review the response and follow-up if needed. Please note: Queries are made part of the Legal Health Record. If you have any questions, please contact the author of this message via ITS. Doctor: Kirstin Encephalopathy is documented 07/18, HP. Additional clarification regarding the type of encephalopathy is requested. History/Risk Factors: 69 year old male presents to the ED for auditory hallucinations for the last week or so ever since he was started on oxycodone. Was previously on oral [place] 5 and then 7.5 with not much relief. He also had some jerky movements with [place], similar after his Whipple surgery. Medical History: Previously on chemotherapy and radiation therapy for bony metastasis. Pancreatic cancer with metastatic disease and severe cachexia. 07/18, HP. Clinical Indicators: 07/18, HP: Acute encephalopathy, intermittent hallucinations. Hallucinations could also be secondary to opiate use, continue to hold oxycodone. Toxicology, 07/18: Urine Oxycodone Screen detected. Urine Benzodiazepines Screen Detected. CT Brain, 07/18: Similar mild cerebral atrophy and mild burden of chronic small vessel ischemic disease. MRI Brain, 07/19: No evidence of intracranial mass, acute/subacute infarct, or abnormal enhancement. Treatment: 07/18 Oxycodone on hold Consults: Neuro 07/19: Acute delirium, likely due to pain medications (oxycodone). Mentation is improving. Please clarify the type of encephalopathy, if known: [ x ] Toxic Encephalopathy secondary to Opiates. [ ] Other, please specify [ ] Unable to determine (Template Last Revised: May 2020) MTDD
--- NOTE | 2024-07-21 09:14 | CDI ---
Documentation Clarification Form Date: 07/21/2024 08:39:01 AM From: Veronica Brady RN CCDS Phone: [phone] Admit Date: 07/18/2024 12:31:00 PM Patient Name: Hector Dudley Visit Number: [id number] Discharge Date: ATTENTION: The Clinical Documentation Specialists (CDI) and [facility] Coding Staff appreciate your assistance in clarifying documentation. Please respond to the clarification below the line at the bottom and electronically sign. The CDI & [facility] Coding staff will review the response and follow-up if needed. Please note: Queries are made part of the Legal Health Record. If you have any questions, please contact the author of this message via ITS. Doctor: Kirstin Severe Cachexia is documented 07/18, HP. Based on this information and the findings below, is there an additional diagnosis that is clinically appropriate for this patient? History/Risk Factors: 69 year old male presents to the ED for auditory hallucinations for the last week or so ever since he was started on oxycodone. Was previously on oral [place] 5 and then 7.5 with not much relief. He also had some jerky movements with [place], similar after his Whipple surgery. Medical History: Previously on chemotherapy and radiation therapy for bony metastasis. Pancreatic cancer with metastatic disease and severe cachexia. 07/18, HP. Clinical Indicators: RD Consult Assessment: *Current BMI: 14.9 , Hgt 6ft Weight 49.895kg Estimated by patient, Usual weight 97.522 weight loss 47.627kg related to pancreatic cancer, chemo and radiation. Duration 2.5 years * Kcal Energy Needs [id number]; * Estimated Protein needs 60-75 grams/day * Unintended weight loss related to metastatic pancreatic CA. Evidenced by 53% weight loss Neuro consult, 07/19: He appears obviously cachectic. On muscle strength testing, he has chronic weakness of bilateral shoulders from severe weight loss. [Cite applicable ASPEN criteria listed below] Treatment: RD Consult above, Monitoring PO and supplement intake. Supplements: Ensure Enlive BID Is there an additional diagnosis that is clinically appropriate for this patient? [ x ] Severe Protein-Calorie Malnutrition [ ] Other condition, please specify [ ] Unable to Determine Malnutrition Characteristics for Moderate and Severe Malnutrition Type of Malnutrition Acute Illness or Injury Chronic Illness Degree of Malnutrition Non-severe (moderate) Malnutrition Severe Malnutrition Non-severe (moderate) Malnutrition Severe Malnutrition Energy Intake <75% for >7 days = 50% for = 5 days <75% for = 1 month =75% for = 1 month Weight Loss 1-2% in one week, 5% in 1 month, 7.5% in 3 months 2% in one week, >5% in 1 month, >7.5% in 3 months 5% in one month, 7.5% in 3 months, 10% in 6 months, 20% in 1 year >5% in one month, >7.5% in 3 months, >10% in 6 months, >20% in 1 year Body Fat Wasting Mild Moderate Mild Severe Muscle Wasting Mild Moderate Mild Severe Presence of Edema Mild Moderate to Severe Mild Severe Mineral Technologist Strength Not applicable Measurably Reduced Not applicable Measurably Reduced Source: Allison CaleroV, Zaida P, Frantz G, et al. Consensus statement: Academy of Nutrition and Dietetics and [place] Society for Parenteral and Enteral Nutrition: characteristics recommended for the identification and documentation of adult malnutrition (undernutrition).BRENT Calero Parenter Enteral Nutr. 2012;36(3):275-283. (Template Last Revised: September 2022) MTDD
[2024-07-21] MEDS ORDERED: TRIAMCINOLONE ACETONIDE 40 MG/ML 1 ML VIAL ONE (13:34)
[2024-07-21] MEDS ORDERED: IOPAMIDOL M200 10 ML VIAL ONE (13:34)
--- NOTE | 2024-07-21 13:48 | P.PCN ---
Date of Procedure: 07/21/24 Description of Procedure: Pre- and Post-operative Diagnosis: Sacroilitis and Lumbar Spondylosis Procedure: Bilateral Sacroiliac Joint injection under biplanar fluoroscopy Bilateral Sacroiliac joint arthrogram Surgeon: Duncan Downs Anesthesia: Local: 1% Lidocaine, IV sedation: None. Complications: none EBL : None Specimen removed: None Fluoroscopic image: Saved to patient electronic medical records. Indications for Procedure: The patient is well known to our pain clinic. Failed with the conservative pain management therapy. So scheduled for bilateral sacroiliac joint injection with fluoroscopic guidance. Procedure and Findings: The patient was seen and examined in the holding area. The written informed consent was obtained after explaining the risks, benefits and alternatives of the procedure to the patient. The patient was brought to the procedure room and was placed in the prone position on the operating room table. A pillow was placed under the lower abdomen. The anesthesia was started as mentioned above and monitoring was done with noninvasive blood pressure cuff, EKG and pulse oximetry. The skin preparation was done with ChloraPrep X2 , and draping was done in usual sterile fashion. Sterile technique was observed throughout the procedure. AP and little oblique fluoroscopic views of the sacral spine and pelvis were obtained to identify the right sacroiliac joint. About one cm above the inferior margin of the right sacroiliac joint was marked for needle entry. 2 mL ml of 1% Lidocaine was injected with a 25 gauge needle to achieve adequate local anesthesia of the skin and subcutaneous tissue. A 22 gauge 3.5 inch spinal nee dle was introduced and advanced into the target area under direct fluoroscopic guidance. A contact was felt and the needle was advanced little further. No parathesia was noted. A negative aspiration was confirmed and then 0.5 ml Isovue was injected. A good dye spread was seen along the joint space. A total of 3 mL ml solution containing Kenalog 40 mg and 2 ml of 1% preservative-free lidocaine was injected slowly. The needles were removed intact. Entire procedure repeated on the left side. Kenalog 40 mg +40 mg= 80 mg used Area was cleaned and bandages were applied. Disposition : The patient tolerated the procedure very well. The patient was transferred to the recovery room and remained stable until discharged home. The patient was given detailed discharge instructions for infection, bleeding, and increased pain at the injection site, and was advised to seek immediate medical attention should significant side effects develop. The patient will be followed up with our Pain Clinic within 2 weeks for a repeat procedure if the procedure helpful.
--- NOTE | 2024-07-21 14:05 | FL ---
EXAMINATION TYPE: FL guided pain mgmt statistic DATE OF EXAM: 07/21/2024 1:56 PM COMPARISON: Pre Operative Images if available both CT/MRI or plain film CLINICAL INDICATION: Male, 69 years old with history of BILAT SI JOINY STEROID INJECTION; TECHNIQUE: FL guided pain mgmt statistic, multiple fluoroscopic images provided for procedure. DAP: 0.85195 mGym2 Gycm2 uGym2 cGycm2 or equivalent. FINDINGS: Fluoroscopic images during injection for pain management demonstrate multilevel degeneration changes throughout the spine. No evidence for fracture. No acute process identified. IMPRESSION: 1. No evidence for intraoperative complication. 2. Please see the operative/procedural note for further details. [facility], , 07/21/2024 2:02 PM
--- NOTE | 2024-07-21 15:07 | P.PN ---
Subjective Progress Note Date: 07/21/24 No new complaints. Pain is better controlled after sacral plexus block. Still having some episodes of hallucination per family member at bedside. Pt is A+O x 3. Gen: In NAD, non-toxic HEENT: normocephalic, atraumatic, hearing acuity is intant, mucous membranes moist CVS: perfusing all extremities well, no pitting edema, Respiratory: symmetric chest expansion, no accessory muscle use, GI: soft, NTTP, ND, : no suprapubic tenderness, no CVA tenderness MSK/Derm: no rashes, cyanosis Neuro: CN II-XII intact, no motor weakness, Psych: cooperative, euthymic mood, judgment and insight is intact Hospital course: 69-year-old male with history of pancreatic cancer with local and distant metastasis, hypertension, dyslipidemia presenting for new hallucinations as well as difficulty with pain control. n the ED, temperature was 97.9, pulse 92, respiratory rate 20, blood pressure 106/70, saturating at 99% on room air. WBC 4.6, hemoglobin 10.8, creatinine 0.74, magnesium 2.1, total bili 0.8, AST 24, ALT 16, ALP 144, urinalysis negative, toxicology positive for oxycodone and benzos. CT head did not show any acute process or metastatic disease. Chest x- ray independently interpreted, shows no opacities. Patient given oral Tylenol, IV Toradol, lidocaine patch, oral tramadol in the ED. Neurology and oncology consulted. Patient being admitted as observation for further neurologic evaluation as well as pain control. Assessment and Plan: Active: Acute encephalopathy, intermittent hallucinations - CT head did not show any acute process - Brain MRI did not show any metastatic disease - Neurology consulted, folic acid and B12 levels pending - Hallucinations could also be secondary to opiate use, continue to hold oxycodone Pancreatic cancer Metastatic disease Uncontrolled pain Severe cachexia - Tylenol as needed, IV Toradol as needed, also started on oral Dilaudid as nee ded, monitor for sedation - Oncology consulted, pain management consult, pt is s/p sacral plexus block on 07/21 - also on dexamethasone oral 8 mg twice daily per oncology Chronic: GERD Hypertension, not on any meds Dyslipidemia, not on any meds DVT ppx: Lovenox Code status: Full code Anticipated discharge place: Home Anticipated discharge time: 24 to 48 hours Objective - Vital Signs Vital signs: Vital Signs Temp 97.7 F 07/21/24 08:00 Pulse 53 L 07/21/24 08:00 Resp 16 07/21/24 08:00 BP 127/77 07/21/24 08:00 Pulse Ox 96 07/21/24 08:00 FiO2 Intake & Output 07/20/24 07/21/24 07/21/24 18:59 06:59 18:59 Intake Total 900 590 Balance 900 590 Intake: Intake, IV Titration 900 Amount Sodium Chloride 0.9% 1, 900 000 ml @ 75 mls/hr IV . [id number] [facility] Rx#:[id number] Oral 590 Other: Voiding Method Toilet Urinal # Voids 1 2 - Labs CBC & Chem 7: 07/19/24 05:16 07/19/24 05:16
[2024-07-21] MEDS: LACTATED RINGERS 1,000 ML IV SCH ×2 (16:37→16:38)
--- NOTE | 2024-07-21 17:57 | P.PN ---
Subjective Progress Note Date: 07/21/24 At today's visit patient is reporting no pain. He continues to have some confusion and hallucinations but this has improved since admit Objective - Vital Signs Vital signs: Vital Signs Temp 97.7 F 07/21/24 08:00 Pulse 53 L 07/21/24 08:00 Resp 16 07/21/24 08:00 BP 127/77 07/21/24 08:00 Pulse Ox 96 07/21/24 08:00 FiO2 Intake & Output 07/20/24 07/21/24 07/21/24 18:59 06:59 18:59 Intake Total 900 590 Balance 900 590 Intake: Intake, IV Titration 900 Amount Sodium Chloride 0.9% 1, 900 000 ml @ 75 mls/hr IV . [id number] [facility] Rx#:[id number] Oral 590 Other: Voiding Method Toilet Urinal # Voids 1 2 - Constitutional General appearance: Present: average body habitus, no acute distress - EENT Eyes: Present: anicteric sclerae, EOMI ENT: Present: hearing grossly normal - Respiratory Details: breathing is even and unlabored - Cardiovascular Details: skin warm and dry - Integumentary Integumentary: Absent: cyanotic - Musculoskeletal Musculoskeletal: Present: generalized weakness - Labs CBC & Chem 7: 07/19/24 05:16 07/19/24 05:16 Assessment and Plan (1) Chronic pain Current Visit: Yes Status: Acute Code(s): G89.29 - OTHER CHRONIC PAIN SNOMED Code(s): 60233578 (2) Hallucinations Current Visit: Yes Status: Acute Priority: High Code(s): R44.3 - HALLUCINATIONS, UNSPECIFIED SNOMED Code(s): 3522934 (3) Pancreatic adenocarcinoma Current Visit: No Status: Chronic Priority: Medium Code(s): C25.9 - MALIGNANT NEOPLASM OF PANCREAS, UNSPECIFIED SNOMED Code(s): 418639444 Plan: Hallucinations -New onset, patient has never had anything like this before. Patient has shown some improvement since admission, but still experiencing confusion and hallucinations -CT of the head and MRI of the brain, negative for metastatic disease -Quite possibly related to newly prescribed narcotics. These have been stopped. Alternatives to narcotics being used Pain from treatment of malignancy -Suspect sacroiliitis secondary to chemo/radiation treatment - Patient is reporting good pain relief from topical lidoDerm. Continue with the same. Patient did get some relief with short burst of steroids. 8 mg twice daily for 3 days has been ordered. PPI ordered for prevention of steroid gastritis. Continue for now -DC OxyContin -Pain management has seen patient, plans sacral plexus nerve block today, agree with the same. Once patient has had his nerve block he is okay from an Oncology standpoint to be discharged once he has been cleared by the Attending and consulting Physicians. Follow-up appointment with the Medical Oncologist is in the discharge plan. Doctor attests: I performed a history and physical examination of this patient, developed impression and plan of care. Discussed with dictator. I agree with dictators note, documented as a scribe.
--- NOTE | 2024-07-22 11:34 | P.PN ---
Subjective Progress Note Date: 07/22/24 No new complaints. Pain is better controlled after sacral plexus block. Continues to have episodes of hallucination per family member at bedside. Pt is A+O x 3. Gen: In NAD, non-toxic HEENT: normocephalic, atraumatic, hearing acuity is intant, mucous membranes moist CVS: perfusing all extremities well, no pitting edema, Respiratory: symmetric chest expansion, no accessory muscle use, GI: soft, NTTP, ND, : no suprapubic tenderness, no CVA tenderness MSK/Derm: no rashes, cyanosis Neuro: CN II-XII intact, no motor weakness, Psych: cooperative, euthymic mood, judgment and insight is intact Hospital course: 69-year-old male with history of pancreatic cancer with local and distant metastasis, hypertension, dyslipidemia presenting for new hallucinations as well as difficulty with pain control. n the ED, temperature was 97.9, pulse 92, respiratory rate 20, blood pressure 106/70, saturating at 99% on room air. WBC 4.6, hemoglobin 10.8, creatinine 0.74, magnesium 2.1, total bili 0.8, AST 24, ALT 16, ALP 144, urinalysis negative, toxicology positive for oxycodone and benzos. CT head did not show any acute process or metastatic disease. Chest x- ray independently interpreted, shows no opacities. Patient given oral Tylenol, IV Toradol, lidocaine patch, oral tramadol in the ED. Neurology and oncology consulted. Patient being admitted as observation for further neurologic evaluation as well as pain control. Assessment and Plan: Active: Acute encephalopathy, intermittent hallucinations - CT head did not show any acute process - Brain MRI did not show any metastatic disease - Neurology consulted, folic acid and B12 levels pending - Hallucinations could also be secondary to opiate use, continue to hold oxycodone Pancreatic cancer Metastatic disease Uncontrolled pain Severe cachexia - Tylenol as needed, IV Toradol as needed, also started on oral Dilaudid as nee ded, monitor for sedation - Oncology consulted, pain management consult, pt is s/p sacral plexus block on 07/21 - also on dexamethasone oral 8 mg twice daily per oncology Chronic: GERD Hypertension, not on any meds Dyslipidemia, not on any meds DVT ppx: Lovenox Code status: Full code Anticipated discharge place: Home Anticipated discharge time: 24 to 48 hours Objective - Vital Signs Vital signs: Vital Signs Temp 97.6 F 07/22/24 07:52 Pulse 69 07/22/24 07:52 Resp 17 07/22/24 07:52 BP 145/84 07/22/24 07:52 Pulse Ox 99 07/22/24 07:52 FiO2 Intake & Output 07/21/24 07/22/24 07/22/24 18:59 06:59 18:59 Intake Total 540 Balance 540 Intake: Oral 540 Other: Voiding Method Toilet Urinal # Voids 2 1 - Labs CBC & Chem 7: 07/19/24 05:16 07/19/24 05:16
[2024-07-23] MEDS: ACETAMINOPHEN TAB 325 MG TAB PO PRN (09:39)
[2024-07-23 13:49] VITALS: BP 121/80; PULSE 63; RESP 17; TEMP 97.8
--- NOTE | 2024-07-23 14:40 | P.DS ---
Providers Date of admission: 07/18/24 12:31 Expected date of discharge: 07/23/24 Attending physician: Kale Ambrose Consults: 07/18/24 12:28 Consult Physician Routine Consulting Provider: Loi Peralta Consult Reason/Comments: pain control. pancreatic cancer Do you want consulting provider notified?: Yes Consult Physician Routine Consulting Provider: Stiven Wallace Consult Reason/Comments: AMS, hallucinations Do you want consulting provider notified?: Yes Primary care physician: [facility] Course: Acute encephalopathy, intermittent hallucinations Pancreatic cancer Metastatic disease Uncontrolled pain Severe cachexia GERD Hypertension, not on any meds Dyslipidemia, not on any meds Gen: In NAD, non-toxic HEENT: normocephalic, atraumatic, hearing acuity is intant, mucous membranes moist CVS: perfusing all extremities well, no pitting edema, Respiratory: symmetric chest expansion, no accessory muscle use, GI: soft, NTTP, ND, : no suprapubic tenderness, no CVA tenderness MSK/Derm: no rashes, cyanosis Neuro: CN II-XII intact, no motor weakness, Psych: cooperative, euthymic mood, judgment and insight is intact Hospital course: 69-year-old male with history of pancreatic cancer with local and distant metastasis, hypertension, dyslipidemia presenting for new hallucinations as well as difficulty with pain control. n the ED, temperature was 97.9, pulse 92, respiratory rate 20, blood pressure 106/70, saturating at 99% on room air. WBC 4.6, hemoglobin 10.8, creatinine 0.74, magnesium 2.1, total bili 0.8, AST 24, ALT 16, ALP 144, urinalysis negative, toxicology positive for oxycodone and benzos. CT head did not show any acute process or metastatic disease. Chest x- ray independently interpreted, shows no opacities. Patient given oral Tylenol, IV Toradol, lidocaine patch, oral tramadol in the ED. Neurology and oncology consulted. Patient was admitted as observation for further neurologic eval uation as well as pain control. Neurological workup including Brain MRI was negative for mets. Encephalopathy felt r/t polypharmacy and pain management was consulted with the goal of being able to reduce pts narcotic use. Pt underwent sacral plexus block on 07/21, and had improvement in encephalopathy with fewer narcotics. Pt felt to be back to baseline today per patient and at bedside, and will return home with oncology, PCP, and pain f/u. I spent 36 min coordinating this discharge Patient Condition at Discharge: Good Plan - Discharge Summary Discharge Rx Participant: No New Discharge Prescriptions: New dexAMETHasone ORAL [Hexadrol] 8 mg PO BID #120 tab HYDROmorphone [Dilaudid] 2 mg PO Q4HR PRN #30 tab PRN Reason: Breakthrough Pain Acetaminophen Tab [Tylenol] 650 mg PO Q6HR PRN tab PRN Reason: Fever And/ Or Pain Continue Ondansetron [Zofran] 4 mg PO Q4H PRN PRN Reason: Nausea Pantoprazole [Protonix] 40 mg PO DAILY Discharge Medication List Ondansetron [Zofran] 4 mg PO Q4H PRN 08/31/22 [History] Pantoprazole [Protonix] 40 mg PO DAILY 07/18/24 [History] Acetaminophen Tab [Tylenol] 650 mg PO Q6HR PRN tab 07/21/24 [Rx] HYDROmorphone [Dilaudid] 2 mg PO Q4HR PRN #30 tab 07/21/24 [Rx] dexAMETHasone ORAL [Hexadrol] 8 mg PO BID #120 tab 07/21/24 [Rx] Follow up Appointment(s)/Referral(s): Loi Peralta MD [STAFF PHYSICIAN] - 07/28/24 8:00 am Moreno Vasques DO [Primary Care Provider] - 1-2 days Patient Instructions/Handouts: Dehydration (DC), Pain Management in Older Adults (DC) Discharge/Stand Alone Forms: Anes Pain/[facility] Instructions Discharge Disposition: HOME SELF-CARE
--- NOTE | 2024-07-23 15:10 | P.PN ---
Subjective Progress Note Date: 07/23/24 Principal diagnosis: Metastatic pancreatic adenocarcinoma - No acute events overnight, afebrile - Notes mentation is significantly improved back to his baseline - Pain is significantly improved following bilateral sacroiliac joint corticosteroid injection and is being discharged home today Objective - Vital Signs Vital signs: Vital Signs Temp 97.8 F 07/23/24 13:48 Pulse 63 07/23/24 13:48 Resp 17 07/23/24 13:48 BP 121/80 07/23/24 13:48 Pulse Ox 100 07/23/24 13:48 FiO2 Intake & Output 07/22/24 07/23/24 07/23/24 18:59 06:59 18:59 Intake Total 540 Balance 540 Intake: Oral 540 Other: Voiding Method Toilet Toilet Toilet Urinal Urinal Urinal # Voids 2 1 # Bowel Movements 1 - Constitutional General appearance: Present: cooperative, no acute distress - EENT Eyes: Present: EOMI - Respiratory Details: Nonlabored breathing - Cardiovascular Details: Warm and well-perfused - Gastrointestinal General gastrointestinal: Present: soft. Absent: distended - Neurologic Neurologic: Present: CNII-XII intact. Absent: focal deficits - Psychiatric Psychiatric: Present: A&O x's 3 - Labs CBC & Chem 7: 07/19/24 05:16 07/19/24 05:16 Assessment and Plan (1) Acute metabolic encephalopathy Status: Acute Code(s): G93.41 - METABOLIC ENCEPHALOPATHY SNOMED Code(s): 98543354 (2) Malignant neoplasm of pancreas metastatic to bone Status: Acute Code(s): C25.9 - MALIGNANT NEOPLASM OF PANCREAS, UNSPECIFIED; C79.51 - SECONDARY MALIGNANT NEOPLASM OF BONE SNOMED Code(s): 96281647 Plan: Acute metabolic encephalopathy, resolved -New onset, patient has never had anything like this before. Patient has shown some improvement since admission, but still experiencing confusion and hallucinations -CT of the head and MRI of the brain, negative for metastatic disease -Pain medications have been held with progressive improvement in metabolic encephalopathy and is currently back at his baseline -We will attempt to limit narcotics as much as possible for pain management Pain from treatment of malignancy -Suspect sacroiliitis secondary to chemo/radiation treatment -Patient is reporting good pain relief from topical lidoDerm. Continue with the same. Patient did get some relief with short burst of steroids. Completed a 3- day course of dexamethasone 8 mg twice daily -DC OxyContin as above -Underwent bilateral sacroiliac steroid injections on 07/21/2024 with significant relief of his pain -Currently is taking Tylenol as needed with pain being manageable under 4 on a scale of 1-10 -Continue Tylenol 650 mg every 4-6 hours as needed Metastatic pancreatic adenocarcinoma - Noted to have oligometastatic lesion to the sacrum that was treated with palliative radiation therapy in 2003 - PET/CT noted recurrence in the sacrum and completed concurrent Xeloda/RT in mid June 2024 - Outpatient follow-up scheduled for 07/28/2024 at 8 AM Loi Peralta MD
== END 2024-07-23 14:44 | disposition home or self-care (01) | DRG 91 ==
LOC: EC 09:23 → 6NMEDSUR 12:30 → OBSVTOIN 12:31 → 5NMEDONC 14:15
PROVIDERS: ADMIT Student in an Organized Health Care Education/Training Program; ATTEND Student in an Organized Health Care Education/Training Program
PROC: 3E0U3BZ Introduction of Anesthetic Agent into Joints, Percutaneous Approach (ICD-10-PCS; 2024-07-21)
PROC: 3E0U33Z Introduction of Anti-inflammatory into Joints, Percutaneous Approach (ICD-10-PCS; principal; 2024-07-21 13:15)
DX: G92.8 Other toxic encephalopathy (principal); E43 Unspecified severe protein-calorie malnutrition; C79.51 Secondary malignant neoplasm of bone; C25.9 Malignant neoplasm of pancreas, unspecified; Z66 Do not resuscitate; F22 Delusional disorders; E86.0 Dehydration; E78.5 Hyperlipidemia, unspecified; D53.9 Nutritional anemia, unspecified; I10 Essential (primary) hypertension; Z68.1 Body mass index [BMI] 19.9 or less, adult; F17.290 Nicotine dependence, other tobacco product, uncomplicated; G89.29 Other chronic pain; K21.9 Gastro-esophageal reflux disease without esophagitis; M54.9 Dorsalgia, unspecified; M47.816 Spondylosis without myelopathy or radiculopathy, lumbar region; M46.1 Sacroiliitis, not elsewhere classified; T40.605A Adverse effect of unspecified narcotics, initial encounter; Z88.8 Allergy status to other drugs, medicaments and biological substances; Z88.5 Allergy status to narcotic agent; Z79.899 Other long term (current) drug therapy; Z92.21 Personal history of antineoplastic chemotherapy; Z92.3 Personal history of irradiation
CPT/HCPCS: 36415; 70450; 70553; 71046; 80053; 80143; 80179; 80306; 80320; 81003; 82140; 82550; 82607; 82746; 83735; 85025; 85610; 85730; 93005; 96361; 96374; 99285

== ENCOUNTER → 2024-08-10 | Outpatient (CLI) | payer MEDICARE ==
[2024-08-10 11:31] VITALS: RESP 17; TEMP 95.7
[2024-08-10 11:40] VITALS: BP 124/84; PULSE 66
--- NOTE | 2024-08-10 12:47 | XR ---
EXAMINATION TYPE: XR lumbar spine 2 or 3V DATE OF EXAM: 08/10/2024 CLINICAL INDICATION: Male, 69 years old with history of M54.16, pain TECHNIQUE: Frontal and lateral images of the lumbar spine are obtained. COMPARISON: None FINDINGS: There are 5 lumbar type vertebral bodies identified. The lumbar spine shows straightened alignment with grade 1 retrolisthesis L3 on L4 and L4 on L5. Vertebral body heights are within normal limits. [id number] disc space narrowing at the L2-L3 level is present. Moderate disc space narrowing at the L4-L5 and L5-S1 levels. Mild to moderate multilevel anterior and lateral spurring. S urgical sutures epigastric region are seen. IMPRESSION: As above. [facility], , 08/10/2024 12:44 PM
--- NOTE | 2024-08-14 14:24 | P.PAINPG ---
Objective - Vital Signs Vital signs: Vital Signs Temp 95.7 F L 08/10/24 11:25 Pulse 66 08/10/24 11:31 Resp 17 08/10/24 11:31 BP 124/84 08/10/24 11:31 Pulse Ox 99 08/10/24 11:31 FiO2 Intake & Output 08/09/24 08/10/24 08/10/24 18:59 06:59 18:59 Weight 98.883 kg PQRS Measure Charge Sheet Mode of Arrival: Ambulatory Comment: HISTORY OF PRESENT ILLNESS: A 69 yr old wheelchair bound male w history of metastatic bony cancer presents today w severe and chronic lumbosacral pain > 3 mo secondary to BL Sacroiliitis for evaluation s/p BL SI #1. Pt states he experienced 75% pain relief x 3 wks s/p procedure. Pt states pain level is provoked at 8 /10 in intensity, constant, localized in the lumbar spine, predominantly axial, achy in character w occasional shooting pain towards the LLE. Pain is provoked by bending. Pain is alleviated by physician guided stretches daily since Fall 2022, medications , repositioning and rest . Pt is frail and not a candidate for formal PT sessions. Interventional procedures include BL SI x1 (07/30) Medications include Tyl REVIEW OF ORGAN SYSTEMS: CONSTITUTIONAL: No fevers or chills. No recent weight loss. NEUROLOGICAL: + numbness and tingling along the distal extremities. No seizure disorders or headaches. MUSCULOSKELETAL: + pain PSYCHIATRIC: Denies current depression or suicidal thoughts. Physical Examinations : Constitutional : Cooperative , not in acute distress . Neurologic : Cranial nerve II to XII intact. No focal neurological deficits. Psychiatric : alert & oriented x 3. Matching mood & appropriate affect. Judgment & insight intact. Musculoskeletal : Cervical Spine Motor strength in the deltoid and biceps: Normal right side. Normal Left side Motor strength biceps and the wrist extensors: Normal right side . Normal left side Motor strength in the triceps muscle: Normal right side. Normal left side Deep tendon reflexes: Normal at the biceps. Normal at Brachioradialis. Normal at triceps Vertebral body tenderness to deep palpation over Cervical facet loading test: positive bilaterally Spurling test: positive bilaterally Neck distraction test: positive bilaterally Luis Angel sign: positive bilaterally Lumbar spine Motor strength lower extremities ,thigh and legs 5/5 Right side , 5/5 Left side Deep tendon reflexes : Normal Knee Jerk. Normal Ankle Jerk Vertebral body tenderness over L5 Winkler Test positive L L5-S1 Lumbar facet Loading Test: positive Right / positive Left Range of motion of the lumbar spine Flexion 30 degrees, extension 10 degrees Straight Leg Raise test: Left/ Right positive at degrees Tony test: positive right / positive left. Severe tenderness over the Sacroiliac joint on the Right / Left sides Gaenslen test: positive bilaterally Seated flexion test: positive bilaterally. Sacral spine : Severe tenderness over the Sacroiliac joint: right side / left side Range of motion: Flexion of the lumbar spine <60 degrees Range of motion: Extension of the lumbar spine <20 degrees Gaenslen's Test positive BL Tony test: positive right side / left side BL positive Thigh Thrust Test Sacral Thrust Test Imaging: None on file Assessment/ Plan : BL Sacroiliitis Recommendation of medication management. Tyl #3 #60 w 2 RF. Use, side effects, adverse reactions, safe storage discussed. Opiate/ narcotic agreement sgined 08/10/24. Lumbar x ray [id number] and would benefit from L TFESI L5-S1. All questions answered. I have spent greater than 30 minutes on patient care today. Dr Diallo was available by phone for the evaluation of this patient. The time was used to review the medical records including relevant urine studies and Prescription history (MAPs), review of the available imaging, evaluation and examination of the patient, coordination of care with the medical staff and if applicable referring physicians, as well as creation of the medical record - Pain Location Lower Back Non-Pharmacological Interventions: Heat Pharmacological Interventions: PRN Medication PQRS Narrative: Smoking Status Former smoker Blood Pressure 124/84 Pain Intensity [Lower Back] 7 Scale Used Numeric (1 - 10) Hx Alcohol Use (MH) No Home Medications: Ambulatory Orders Ondansetron [Zofran] 4 mg PO Q4H PRN 08/31/22 Pantoprazole [Protonix] 40 mg PO DAILY 07/18/24 Acetaminophen Tab [Tylenol] 650 mg PO Q6HR PRN tab 07/21/24 HYDROmorphone [Dilaudid] 2 mg PO Q4HR PRN #30 tab 07/21/24 dexAMETHasone ORAL [Hexadrol] 8 mg PO BID #120 tab 07/21/24 Acetaminophen-Codeine 300-30mg [Tylenol w/codeine #3] 1 tab PO BID PRN 30 Days #60 tablet 08/10/24 Controlled Substance Measures - Controlled Substance Measures Is patient prescribed a controlled substance at discharge?: Yes When asked, does pt state using other controlled substances?: Yes If prescribed controlled substance>3 days was MAPS reviewed?: Yes If Rx opioid, was Start Talking consent form obtained?: Yes Was information provided regarding opioid addiction?: Yes
== END ==
LOC: PNWHC3 11:07
PROVIDERS: ATTEND Specialist
DX: M46.1 Sacroiliitis, not elsewhere classified (principal); Z87.891 Personal history of nicotine dependence; Z88.5 Allergy status to narcotic agent
CPT/HCPCS: 72100; 99202; 99211

== ENCOUNTER → 2024-08-29 | Outpatient (CLI) | payer MEDICARE ==
--- NOTE | 2024-08-29 13:51 | US ---
EXAMINATION TYPE: US venous doppler duplex LE LT DATE OF EXAM: 08/29/2024 1:06 PM COMPARISON: NONE CLINICAL INDICATION: Male, 69 years old with history of LEFT LEG R22.42 LOCALIZED SWELLING, MASS AND LUMP,; No hx of DVT. Patient does not take blood thinners. *Swelling TECHNIQUE: The lower extremity deep venous system is examined utilizing real time linear array sonog mya with graded compression, color doppler sonography, and spectral doppler. SIDE PERFORMED: Left FINDINGS: VESSELS IMAGED: Common Femoral Vein Deep Femoral Vein Greater Saphenous Vein * Femoral Vein Popliteal Vein Small Saphenous Vein * Proximal Calf Veins Posterior tibial veins (* superficial vessels) Left Leg: Medical Billing Supervisor notes: Internal echoes with lack of color flow seen within EIV, CFV, GSV, fem oral vein, deep femoral vein, and proximal popliteal vein. *Some color flow is seen, but color defect noted. Vessels do not compress at these levels. Color flow seen in distal popliteal vein and prox calf veins. Distal popliteal vein compresses. Peroneal veins were obscured. PTVs compress. Great amount of edema noted throughout the leg. IMPRESSION: Extensive DVT throughout the left lower extremity from the groin down into the upper popliteal vein. Large segments are occlusive and noncompressible. Some scattered areas are partially occlusive. There is severe subcutaneous soft tissue edema. [facility], , 08/29/2024 1:49 PM
== END | disposition home or self-care (01) ==
LOC: RADUSWWP 12:32
PROVIDERS: ATTEND Internal Medicine
DX: C25.0 Malignant neoplasm of head of pancreas (principal); R60.0 Localized edema; Z71.3 Dietary counseling and surveillance

== ENCOUNTER 2024-09-11 09:28 | Inpatient (IN) | payer MEDICARE ==
[2024-09-11 10:36] LABS: Basophils # (A) 0.02 10*3/uL (0.00-0.10); Basophils % (A) 0.3 %; Eosinophils # (A) 0.05 10*3/uL (0.04-0.35); Eosinophils % (A) 0.7 %; HCT 38.6 % (39.6-50.0); HGB 12.9 g/dL (13.0-17.0); Lymphocytes # (A) 0.46 10*3/uL (0.90-5.00); Lymphocytes % (A) 6.5 %; MCH 35.7 pg (27.0-32.0); MCHC 33.4 g/dL (32.0-37.0); Monocytes # (A) 0.58 10*3/uL (0.20-1.00); Monocytes % (A) 8.2 %; Neutrophils # (A) 5.93 10*3/uL (1.80-7.70); Neutrophils % (A) 83.6 %; RBC 3.61 10*6/uL (4.40-5.60); RDW 18.7 % (11.5-14.5); WBC 7.09 10*3/uL (4.50-10.00)
[2024-09-11 10:42] LABS: INR 1.1 (<1.2); Partial Thromboplastin Time 23.6 sec (22.0-30.0); Prothrombin Time 12.3 sec (10.0-12.5)
[2024-09-11 10:45] LABS: ALT 25 U/L (4-49); AST 50 U/L (17-59); Acetaminophen <10.0 ug/mL; African American GFR (CKD) >90 (>60 ml/min/1.73 sqM); Albumin 2.5 g/dL (3.5-5.0); Alkaline Phosphatase 195 U/L (38-126); Anion Gap 5 mmol/L; Blood Urea Nitrogen 16 mg/dL (9-20); Calcium 9.0 mg/dL (8.4-10.2); Carbon Dioxide 22 mmol/L (22-30); Chloride 112 mmol/L (98-107); Creatine Kinase 68 U/L (55-170); Glucose 92 mg/dL (74-99); Non-African American GFR(CKD) >90 (>60 ml/min/1.73 sqM); Potassium 4.1 mmol/L (3.5-5.1); Sodium 139 mmol/L (137-145); Total Protein 5.2 g/dL (6.3-8.2)
[2024-09-11 10:52] LABS: MCV 106.9 fL (80.0-97.0)
--- NOTE | 2024-09-11 10:56 | XR ---
EXAMINATION TYPE: XR chest 2V DATE OF EXAM: 09/11/2024 10:49 AM COMPARISON: Chest radiographs from 07/18/2024 TECHNIQUE: XR chest 2V Frontal and lateral views of the chest. CLINICAL INDICATION:Male, 69 years old with history of altered mental status; FINDINGS: Lungs/Pleura: Low lung volumes. No evidence of focal consolidation or pneumothorax. Blunting of the c ostophrenic angles is present. Heart/mediastinum: Cardiomediastinal silhouette is prominent in size. Musculoskeletal: No acute osseous pathology. IMPRESSION: 1. Low lung volumes with a generalized hazy appearance which could represent atelectasis versus pulm onary edema correlate with serum BNP. 2. Small bilateral pleural effusions. [facility], , 09/11/2024 10:53 AM
[2024-09-11 11:14] LABS: Platelet Count 97 10*3/uL (140-440)
[2024-09-11 11:15] LABS: Anisocytosis (M) Present; Poikilocytosis (M) Present
--- NOTE | 2024-09-11 11:33 | CT ---
EXAMINATION TYPE: CT brain wo con DATE OF EXAM: 09/11/2024 11:16 AM COMPARISON: 07/18/2024.. CLINICAL INDICATION: Male, 69 years old with history of Altered mental status, AMS. TECHNIQUE: Brain: Axial CT images of the brain were obtained with coronal and sagittal reformats created and rev iewed. Contrast used: None. Oral contrast used: None. CT DLP: 1097.4 mGycm, Automated exposure control for dose reduction was used. FINDINGS: Brain: Extra-axial spaces: No abnormal extra-axial fluid collections. Ventricular system: Within normal limits Cerebral parenchyma: . Castillo-white matter differentiation from prior series 2034 image 16 involving th e right frontal lobe. Area in the e parietal region is also present image 11 No acute intraparenchyma l hemorrhage or mass effect. The castillo-white junction is well differentiated. Cerebellum: Unremarkable. Mass effect: No evidence of midline shift. Intracranial vasculature: unremarkable Soft tissues: Normal. Calvarium/osseous structures: No depressed skull fracture. Paranasal sinuses and mastoid air cells: Mild scattered paranasal sinus disease. Visualized orbits: Orbital contents are intact. IMPRESSION: New from 07/18/2024 areas of suspected acute/subacute infarcts involving the right frontal and right p arietal lobes. Findings communicated to Jacqueline Britt DO on 09/11/2024 11:[address] Da Clinton. [facility], , 09/11/2024 11:30 AM
--- NOTE | 2024-09-11 11:37 | ED ---
Altered Mental Status HPI - General Chief Complaint: Altered Mental Status Stated Complaint: AMS Time Seen by Provider: 09/11/24 09:35 Source: EMS Mode of arrival: EMS Limitations: altered mental status - History of Present Illness Initial Comments: 69-year-old male with history of metastatic pancreatic adenocarcinoma who presents emergency department with altered mental status. is at bedside and provides the history. States that the patient has been confused this morning and lethargic. She reports he has not gotten out of bed in the past 2 weeks as he was recently diagnosed with a DVT in his lower extremity. Patient was started on Eliquis at that time. Reports that he has had poor oral intake. No fevers. No falls. He did receive radiation treatment earlier this year for his sacral lesions however did not help his chronic pain. He follows with Dr. Peralta however has reported several times to his that he no longer wants to receive any treatment for his cancer. He is supposed to be having a PET scan this upcoming Wednesday. admits to increasing abdominal distention. No other alleviating, precipitating or modifying factors - Related Data Home Medications Medication Instructions Recorded Confirmed Acetaminophen Tab [Tylenol Tab] 1,500 mg PO BID 09/11/24 09/11/24 Apixaban [Eliquis] 5 mg PO BID 09/11/24 09/11/24 HYDROcodone/APAP 7.5-325MG [Basile 1 tab PO BID 09/11/24 09/11/24 7.5-325] Allergies Allergy/AdvReac Type Severity Reaction Status Date / Time hydrocodone AdvReac jerking/desmond Verified 09/11/24 12:21 lucinations /confusion oxycodone AdvReac jerking/desmond Verified 09/11/24 12:21 lucinations /confusion Review of Systems ROS Statement: Those systems with pertinent positive or pertinent negative responses have been documented in the HPI. ROS Other: All systems not noted in ROS Statement are negative. Past Medical History Past Medical History: Cancer, Hyperlipidemia, Hypertension, Osteoarthritis (OA) Additional Past Medical History / Comment(s): torn bicep, positive cologard, pancreatic CA. History of Any Multi-Drug Resistant Organisms: None Reported Past Surgical History: Hernia Repair, Tonsillectomy Additional Past Surgical History / Comment(s): whipple surgery 12/28 Past Anesthesia/Blood Transfusion Reactions: No Reported Reaction Past Psychological History: No Psychological Hx Reported Smoking Status: Never smoker Past Alcohol Use History: None Reported Past Drug Use History: None Reported - Past Family History Mother Family Medical History: No Reported History General Exam Limitations: altered mental status General appearance: lethargic Head exam: Present: atraumatic, normocephalic, normal inspection ENT exam: Present: mucous membranes dry Neck exam: Present: normal inspection. Absent: tenderness, meningismus, lymphadenopathy Respiratory exam: Present: decreased breath sounds. Absent: respiratory distress, wheezes, rales, rhonchi, stridor Cardiovascular Exam: Present: regular rate, normal rhythm GI/Abdominal exam: Present: soft, distended Psychiatric exam: Present: flat affect Skin exam: Present: warm, dry, intact, normal color. Absent: rash Course Vital Signs 09/11/24 09/11/24 09/11/24 09:32 13:00 16:45 Temperature 97.9 F Pulse Rate 80 64 70 Respiratory 18 12 16 Rate Blood Pressure 126/99 122/89 128/91 O2 Sat by Pulse 96 93 L 97 Oximetry 09/11/24 09/11/24 09/11/24 20:00 21:00 23:00 Temperature Pulse Rate 77 89 76 Respiratory 11 L 12 12 Rate Blood Pressure 115/88 115/88 123/92 O2 Sat by Pulse 96 97 95 Oximetry 09/12/24 09/12/24 09/12/24 02:25 04:20 06:32 Temperature 97.7 F Pulse Rate 88 75 Respiratory 19 17 17 Rate Blood Pressure 122/99 128/89 O2 Sat by Pulse 96 95 96 Oximetry 09/12/24 06:52 Temperature 97.3 F L Pulse Rate Respiratory Rate Blood Pressure O2 Sat by Pulse Oximetry Medical Decision Making - Medical Decision Making Was pt. sent in by a medical professional or institution (, PA, GLUE COOK, urgent care, hospital, or detention...) When possible be specific @ -No Did you speak to anyone other than the patient for history (EMS, parent, family, police, friend...)? What history was obtained from this source @ -Spoke with the and EMS for history Did you review nursing and triage notes (agree or disagree)? Why? @ -I reviewed and agree with nursing and triage notes Were old charts reviewed (outside hosp., previous admission, EMS record, old EKG, old radiological studies, urgent care reports/EKG's, detention records)? Report findings @ -No old charts were reviewed Differential Diagnosis (chest pain, altered mental status, abdominal pain women, abdominal pain men, vaginal bleeding, weakness, fever, dyspnea, syncope, headache, dizziness, GI bleed, back pain, seizure, CVA, palpatations, mental health, musculoskeletal)? @ -Differential Altered Mental Status: Hypoglycemia, DKA, hypercapnia, ETOH, overdose, CO poisoning, trauma, myxedema coma, HTN encephalopathy, infection, encephalitis, psychosis, intercranial hemorrhage, hepatic encephalopathy, meningitis, CVA, this is not meant to be an all-inclusive list EKG interpreted by me (3pts min.). @ -Yes which demonstrates overall low voltage. Sinus rhythm with a rate of 77. IN interval 130. QRS 80. QTc of 374. No acute ST segment elevations X-rays interpreted by me (1pt min.). @ -Yes which demonstrates atelectasis versus a pulmonary edema CT interpreted by me (1pt min.). @ -Yes which demonstrates acute/subacute CVA U/S interpreted by me (1pt. min.). @ -None done What testing was considered but not performed or refused? (CT, X-rays, U/S, labs)? Why? @ -MRI however would like to go comfort care/hospice What meds were considered but not given or refused? Why? @ -None Did you discuss the management of the patient with other professionals (professionals i.e. , PA, GLUE COOK, lab, RT, psych nurse, social media marketing specialist, supervisor microbiology technologists, teacher, safety instruction police officer, pillowcase cleaner)? Give summary @ -Spoke with Dr. Arnol Asif as well as the hospice nurse and pillowcase cleaner Was smoking cessation discussed for >3mins.? @ -No Was critical care preformed (if so, how long)? @ -No Were there social determinants of health that impacted care today? How? (Homelessness, low income, unemployed, alcoholism, drug addiction, transportation, low edu. Level, literacy, decrease access to med. care, senior living, rehab)? @ -No Was there de-escalation of care discussed even if they declined (Discuss DNR or withdrawal of care, Hospice)? DNR status @ -No What co-morbidities impacted this encounter? (DM, HTN, Smoking, COPD, CAD, Cancer, CVA, ARF, Chemo, Hep., AIDS, mental health diagnosis, sleep apnea, morbid obesity)? @ -Pancreatic cancer Was patient admitted / discharged? Hospital course, mention meds given and route, prescriptions, significant lab abnormalities, going to OR and other pertinent info. @ -Upon arrival patient seen and evaluated in bed 27. Thorough history and ph ysical exam was performed. Laboratory studies are conducted. CT of the brain, abdomen pelvis was performed. Results are discussed with the . She would like to pursue hospice over any further treatment. I did speak with the pillowcase cleaner and the hospice nurse. Patient does not qualify for inpatient hospice as he is not requiring any medications for comfort. is concerned about taking the patient home as they do not have power currently. Patient will be admitted to Dr. Ambrose until further accommodations can be made Undiagnosed new problem with uncertain prognosis? @ -No Drug Therapy requiring intensive monitoring for toxicity (Heparin, Nitro, Insulin, Cardizem)? @ -No Were any procedures done? @ -No Diagnosis/symptom? @ -Acute encephalopathy, acute CVA, NSTEMI, metastatic pancreatic cancer Acute, or Chronic, or Acute on Chronic? @ -Acute on chronic Uncomplicated (without systemic symptoms) or Complicated (systemic symptoms)? @ -Complicated Side effects of treatment? @ -No Exacerbation, Progression, or Severe Exacerbation? @ -No Poses a threat to life or bodily function? How? (Chest pain, USA, MS, pneumonia, PE, COPD, DKA, ARF, appy, cholecystitis, CVA, Diverticulitis, Homicidal, Suicidal, threat to staff... and all critical care pts) @ -Yes this patient will likely succumb to his diagnosis - Lab Data Result diagrams: 09/11/24 10:27 09/11/24 10:27 Lab Results 09/11/24 09/11/24 09/11/24 Range/Units 10:27 10: 10: WBC 7.09 (4.50-10.00) 10*3/uL RBC 3.61 L (4.40-5.60) 10*6/uL Hgb 12.9 L (13.0-17.0) g/dL Hct 38.6 L (39.6-50.0) % MCV 106.9 H D (80.0-97.0) fL MCH 35.7 H (27.0-32.0) pg MCHC 33.4 (32.0-37.0) g/dL Plt Count 97 L D (140-440) 10*3/uL MPV 9.6 (9.5-12.2) fL Immature Gran % (Auto) 0.7 % Neutrophils % 83.6 % Lymphocytes % 6.5 % Monocytes % 8.2 % Eosinophils % 0.7 % Basophils % 0.3 % Immature Gran # 0.05 H (0.00-0.04) 10*3/uL Neutrophils # 5.93 (1.80-7.70) 10*3/uL Lymphocytes # 0.46 L (0.90-5.00) 10*3/uL Monocytes # 0.58 (0.20-1.00) 10*3/uL Eosinophils # 0.05 (0.04-0.35) 10*3/uL Basophils # 0.02 (0.00-0.10) 10*3/uL Manual Slide Review Performed Poikilocytosis (manual Present Anisocytosis (manual) Present PT 12.3 (10.0-12.5) sec INR 1.1 (<1.2) APTT 23.6 (22.0-30.0) sec Sodium 139 (137-145) mmol/L Potassium 4.1 (3.5-5.1) mmol/L Chloride 112 H (98-107) mmol/L Carbon Dioxide 22 (22-30) mmol/L Anion Gap 5 mmol/L BUN 16 (9-20) mg/dL Creatinine 0.75 (0.66-1.25) mg/dL Est GFR (CKD-EPI)AfAm >90 (>60 ml/min/1.73 sqM) Est GFR (CKD-EPI)NonAf >90 (>60 ml/min/1.73 sqM) Glucose 92 (74-99) mg/dL Calcium 9.0 (8.4-10.2) mg/dL Total Bilirubin 0.9 (0.2-1.3) mg/dL AST 50 (17-59) U/L ALT 25 (4-49) U/L Alkaline Phosphatase 195 H (38-126) U/L Ammonia (<30) umol/L Creatine Kinase 68 (55-170) U/L Troponin I (0.000-0.034) ng/mL NT-Pro-B Natriuret Pep pg/mL Total Protein 5.2 L (6.3-8.2) g/dL Albumin 2.5 L (3.5-5.0) g/dL Acetaminophen <10.0 ug/mL 09/11/24 09/11/24 09/11/24 Range/Units 10:27 10:27 10:27 WBC (4.50-10.00) 10*3/uL RBC (4.40-5.60) 10*6/uL Hgb (13.0-17.0) g/dL Hct (39.6-50.0) % MCV (80.0-97.0) fL MCH (27.0-32.0) pg MCHC (32.0-37.0) g/dL Plt Count (140-440) 10*3/uL MPV (9.5-12.2) fL Immature Gran % (Auto) % Neutrophils % % Lymphocytes % % Monocytes % % Eosinophils % % Basophils % % Immature Gran # (0.00-0.04) 10*3/uL Neutrophils # (1.80-7.70) 10*3/uL Lymphocytes # (0.90-5.00) 10*3/uL Monocytes # (0.20-1.00) 10*3/uL Eosinophils # (0.04-0.35) 10*3/uL Basophils # (0.00-0.10) 10*3/uL Manual Slide Review Poikilocytosis (manual Anisocytosis (manual) PT (10.0-12.5) sec INR (<1.2) APTT (22.0-30.0) sec Sodium (137-145) mmol/L Potassium (3.5-5.1) mmol/L Chloride (98-107) mmol/L Carbon Dioxide (22-30) mmol/L Anion Gap mmol/L BUN (9-20) mg/dL Creatinine (0.66-1.25) mg/dL Est GFR (CKD-EPI)AfAm (>60 ml/min/1.73 sqM) Est GFR (CKD-EPI)NonAf (>60 ml/min/1.73 sqM) Glucose (74-99) mg/dL Calcium (8.4-10.2) mg/dL Total Bilirubin (0.2-1.3) mg/dL AST (17-59) U/L ALT (4-49) U/L Alkaline Phosphatase (38-126) U/L Ammonia <9 (<30) umol/L Creatine Kinase (55-170) U/L Troponin I 3.410 H* (0.000-0.034) ng/mL NT-Pro-B Natriuret Pep 1340 pg/mL Total Protein (6.3-8.2) g/dL Albumin (3.5-5.0) g/dL Acetaminophen ug/mL Disposition Clinical Impression: Pancreatic adenocarcinoma, Acute encephalopathy, Acute CVA (cerebrovascular accident), Ascites, NSTEMI (non-ST elevated myocardial infarction) Disposition: ADMITTED IP TO THIS HOSP Is patient prescribed a controlled substance at d/c from ED?: No Time of Disposition: 12:37 Decision to Admit Reason: Admit from EC Decision Date: 09/11/24 Decision Time: 12:37
--- NOTE | 2024-09-11 11:55 | CT ---
EXAMINATION TYPE: CT abdomen pelvis w con DATE OF EXAM: 09/11/2024 11:16 AM COMPARISON: Pet/CT 05/18/2024 CLINICAL INDICATION: Male, 69 years old with history of abd distention, vomiting, hx pancreatitic can cer; Abd distention, vomiting, hx of pancreatic CA. TECHNIQUE: Axial CT abdomen pelvis w con;Sagittal and coronal reformats were created on a separate w orkstation. Contrast used:100 ml mL of Isovue 300 with IV Contrast, (none if empty) Oral contrast used: without Oral Contrast (none if empty) CT DLP: 1307.4 mGycm, Automated exposure control for dose reduction was used. FINDINGS: LOWER CHEST: Moderate to large pleural effusions bilaterally. ABDOMEN LIVER: There is scalloping to the liver border in the upper abdomen. GALLBLADDER AND BILE DUCTS: Unremarkable. PANCREAS: Primary pancreatic masses definitively visualized. There is poor visualization due to exten sive fluid in the abdomen. SPLEEN: Wedge-shaped areas of probable infarct are seen throughout the parenchyma. ADRENAL GLANDS: Unremarkable. KIDNEYS AND URETERS: Multiple cortical defects seen bilaterally. Nonobstructing 3 mm right renal calc ulus. No evidence for hydronephrosis bilaterally. PELVIS BLADDER: No evidence for wall thickening or mass given limitations of exam. Layering hyperdensity in the bladder lumen suggestive of calcifications. REPRODUCTIVE: Unremarkable. ABDOMEN & PELVIS STOMACH AND BOWEL: No evidence of bowel obstruction. Postsurgical changes to the bowel with sutures i dentified near the stomach. PERITONEUM/RETROPERITONEUM: No evidence of pneumoperitoneum or free fluid. VASCULATURE: No evidence of aortic aneurysm. MUSCULOSKELETAL: Metastatic disease to the osseous structures again demonstrated particularly of the sacrum with osseous erosion which appears worse compared to 05/18/2024. LYMPH NODES: Partially calcified lymph nodes are seen near the upper abdomen possibly posttreatment c hange. SOFT TISSUE/ABDOMINAL WALL: Unremarkable IMPRESSION: 1. New Findings suggestive of pseudomyxoma peritonei with large abdominal fluid collections which sc allops the margins of the organs particularly the liver. 2. Primary pancreatic mass not definitively visualized. Metastatic disease to the sacrum is again re demonstrated erosive changes which appears to have progressed. 3. New Evidence of suspected emboli with infarcts both the kidneys and spleen possibly the liver. 4. New Large bilateral pleural effusions. [facility], Workstation: [facility], 09/11/2024 11:53 AM
[2024-09-11] MEDS ORDERED: NALOXONE 0.4 MG/ML 1 ML VIAL IV PRN (12:37)
[2024-09-11] MEDS ORDERED: ONDANSETRON 4 MG/2 ML VIAL IVP PRN (12:37)
[2024-09-11] MEDS ORDERED: GLYCOPYRROLATE 0.2 MG/ML 2 ML VIAL IVP PRN (12:39)
[2024-09-11] MEDS ORDERED: LORazepam 1 MG/0.5 ML VIAL IV PRN (12:39)
[2024-09-11] MEDS ORDERED: ACETAMINOPHEN TAB 325 MG TAB PO PRN (13:07)
[2024-09-11] MEDS ORDERED: HYDROcodone/APAP 5-325MG 1 EACH TAB PO PRN (13:07)
[2024-09-11] MEDS ORDERED: PROCHLORPERAZINE INJ 10 MG/2 ML VIAL IVP PRN (13:07)
--- NOTE | 2024-09-11 13:42 | P.HPIM ---
History of Present Illness H&P Date: 09/11/24 History of Presenting Illness: Patient is a very pleasant 69-year-old male with a past medical history of metastatic pancreatic cancer chronic cancer pain, hypertension, hyperlipidemia, and DVT on anticoagulation with Eliquis. He presented to the hospital via EMS for altered mental status as patient reportedly woke up confused with slurred speech. Patient's reports that since patient diagnosed with DVT in right groin 2 weeks ago he has had a very poor appetite with increased weakness, fatigue, and not gotten out of bed much. Patient reports chronic pain to lower back/sacrum and increased abdominal distention with occasional tenderness, but otherwise denies any complaints including headache, lightheadedness, chest pain, palpitations, or shortness of breath. Upon arrival to our facility, patient underwent evaluation in the emergency department. Vital signs upon arrival show blood pressure 126/99, heart rate 80, respiratory rate 18, temp 97.9 F, and SpO2 of 96% on room air. EKG was completed showing a very low voltage EKG but on review sinus mechanism at 77 bpm and frequent T wave or ST abnormality showing no signs of acute ischemia. Chest x-ray completed showing low lung volumes with generalized hazy appearance likely secondary to atelectasis versus pulmonary edema with small bilateral pleural effusions. New areas of suspected acute/subacute infarcts involving the right frontal and right parietal lobes. 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 Labs completed and reviewed. CBC showing bicytopenia with hemoglobin of 12.9 and platelet count of 97 6.9 and MCH of 35.7. Coagulation profile normal findings. BMP showing elevated chloride of 112 otherwise normal findings. Blood glucose 92. Liver profile showing elevated alkaline phosphatase of 195 otherwise normal findings. Ammonia level was negative at less than 9. Creatinine kinase 68. Troponin was 3.410 and proBNP was 1340. Patient and family discussed with ED physician stating patient no longer wants to receive treatment for his cancer and family requesting consult to hospice. Patient placed on comfort measures only and admitted under services with consultation to hospice. Review of systems: Pertinent positives and negatives as discussed in HPI, a complete review of systems was performed and all other systems are negative. Physical exam: Vital signs reviewed and stable. General: Nontoxic, no distress, Chronically ill-appearing. Emaciated, thin and frail Derm: Skin warm and dry, pallor present Head: Atraumatic, normocephalic and symmetric. Eyes: EOM's intact, no lid lag, and anicteric sclera Mouth: no lip lesions, mucus membranes dry Cardiovascular: regular rate and rhythm with normal S1S2, systolic murmur, positive posterior tibial pulses bilaterally, and cap refill < 2 seconds. Lungs: Respirations even, regular, and unlabored on room air. Lungs CTA bilaterally, no rhonchi, no rales, no wheezing, and no accessory muscle usage. Abdominal: soft, nontender to palpation, no guarding, no appreciable org anomegaly Ext: ROM intact. No gross muscle atrophy, no edema, no contractures Neuro: Speech clear, face symmetrical GCS 14 Psych: Alert and oriented to person, place, and situation. Confused to time. Somewhat of a poor historian. Appropriate and pleasant affect. Assessment and Plan of Care: Acute CVA NSTEMI Metastatic pancreatic cancer Bicytopenia Abdominal pain/distention secondary to significant ascites and suspected emboli with infarcts to bilateral kidneys, spleen, and liver Chronic lower back/sacral pain secondary to uncontrolled cancer pain Hypertension DVT -Comfort measures only. -Symptomatic care and pain management. -Tylenol 650 mg every 4 hours as needed for fever and/or mild pain, [place] 5/325 mg every 4 hours as needed for moderate pain, and Dilaudid 1 mg every 3 hours as needed for severe pain. -Artificial teardrops to bilateral eyes every 2 hours as needed for dry eyes. -Compazine 10 mg IVP every 6 hours as needed for nausea and/or vomiting. - If patient's pain remains uncontrolled, will initiate morphine infusion at that time as needed to maintain patient's comfort. -Ativan 1 mg IVP every 6 hours as needed for agitation or acute anxiety. Data and imaging reviewed: As stated above in HPI Patient admitted for comfort measures only with consultation to hospice. Patient was seen independently by Nurse Practitioner. This document was prepared using [employer] dictation software. Please allow for errors in cigar head puncher while rare they do occur. Darwin Mckeon NP rendered care for this patient independently, reviewed the findings and plan as documented in the note above and agree with plan. I did not physically speak with or examine the patient on this date. Past Medical History Past Medical History: Cancer, Hyperlipidemia, Hypertension, Osteoarthritis (OA) Additional Past Medical History / Comment(s): torn bicep, positive cologard, pancreatic CA. History of Any Multi-Drug Resistant Organisms: None Reported Past Surgical History: Hernia Repair, Tonsillectomy Additional Past Surgical History / Comment(s): whipple surgery 12/28 Past Anesthesia/Blood Transfusion Reactions: No Reported Reaction Past Psychological History: No Psychological Hx Reported Smoking Status: Never smoker Past Alcohol Use History: None Reported Past Drug Use History: None Reported - Past Family History Mother Family Medical History: No Reported History Medications and Allergies Home Medications Medication Instructions Recorded Confirmed Type Acetaminophen Tab [Tylenol Tab] 1,500 mg PO BID 09/11/24 09/11/24 History Apixaban [Eliquis] 5 mg PO BID 09/11/24 09/11/24 History HYDROcodone/APAP 7.5-325MG [[place] 1 tab PO BID 09/11/24 09/11/24 History 7.5-325] Allergies Allergy/AdvReac Type Severity Reaction Status Date / Time hydrocodone AdvReac jerking/[place]mond Verified 09/11/24 12:21 lucinations /confusion oxycodone AdvReac jerking/[place]mond Verified 09/11/24 12:21 lucinations /confusion Physical Exam Vitals: Vital Signs Temp Pulse Resp BP Pulse Ox 09/11/24 09:32 97.9 F 80 18 126/99 96 Intake and Output 09/10/24 09/11/24 09/11/24 22:59 06:59 14:59 Other: Weight 63.503 kg Results CBC & Chem 7: 09/11/24 10:27 09/11/24 10:27 Labs: Abnormal Lab Results - Last 24 Hours (Table) 09/11/24 09/11/24 09/11/24 Range/Units 10:27 10:27 10:27 RBC 3.61 L (4.40-5.60) 10*6/uL Hgb 12.9 L (13.0-17.0) g/dL Hct 38.6 L (39.6-50.0) % MCV 106.9 H D (80.0-97.0) fL MCH 35.7 H (27.0-32.0) pg Plt Count 97 L D (140-440) 10*3/uL Immature Gran # 0.05 H (0.00-0.04) 10*3/uL Lymphocytes # 0.46 L (0.90-5.00) 10*3/uL Chloride 112 H (98-107) mmol/L Alkaline Phosphatase 195 H (38-126) U/L Troponin I 3.410 H* (0.000-0.034) ng/mL Total Protein 5.2 L (6.3-8.2) g/dL Albumin 2.5 L (3.5-5.0) g/dL
[2024-09-11] MEDS: HYDROmorphone 1 MG/ML 1 ML SYRINGE IVP PRN (16:49)
[2024-09-11] MEDS ORDERED: ARTIFICIAL TEARS-HYPROMELLOSE DROPS 15 ML BTL BOTH EYES PRN (17:33)
--- NOTE | 2024-09-11 18:50 | P.CONS ---
History of Present Illness - Reason for Consult Consult date: 09/11/24 pancreatic cancer Requesting physician: Darwin Mckeon - Chief Complaint weakness, FTT - History of Present Illness Mr. Dudley is a 69-year-old male patient of Dr. Hannah also with a history of pancreatic adenocarcinoma, diagnosed in early 2022. Patient reported pruritus as far back as January 2022, diffuse, kept him awake. This became associated with anorexia, early satiety and a weight loss of 25 to 30 pounds in a short period of time. He developed obstructive jaundice with dark urine in May 2022. ERCP with EUS 05/15/[address] [facility], noted 26 x 18 mm irregular hypoechoic mass in the pancreatic head, dilation of the common bile duct, 15 mm stricture in the intrapancreatic portion of the bile duct with upstream dilation. He had metal stent placed, FNA of the pancreatic mass positive for adenocarcinoma. Staging including CT of chest and pancreas, 2.6 x 2.1 x 2.2 cm hypoenhancing mass in the pancreatic head with mild distal pancreatic ductal dilation measuring 6 mm at the level of the pancreatic body. The mass was abutting the SMV, no evidence of metastatic disease. Borderline peripancreatic and retroperitoneal LAD. Clinical stage IIb (T2 N0 M0) multiple approaches to treatment were discussed. Patient opted to begin with neoadjuvant chemotherapy. He completed 4 cycles of treatment 11/02/2022. Whipple procedure 12/11/2022. ypT2 N2 stage III disease adjuvant Gemzar and Abraxane completing 6 cycles April 2023. Later in April, CT scan done for back pain, 05/04/2023, new sacral lesion found, PET/CT showed that the lesion was FDG avid along with avidity at the site of surgery. Radiotherapy was recommended by multidisciplinary tumor board to be done to the sacral lesion. Repeat PET scan 09/30/2023 increased FDG activity at the pancreatic neck as well as retroperitoneal lymph nodes. [place] to be postsurgical changes. CT CAP December 2023, no evidence of metastatic disease. CA 19-[address] February [address] scan in March 2024 persistent soft tissue prominence.05/20/2024 FDG avidity in the sacrum, decreasing avidity in the anastomotic site. It was felt with the increasing CA 19-9 and the sacral lesion representing oligometastatic disease. Concurrent chemoradiation was recommended. Patient started treatment end of 2024 completing at the end of June. Plan was for repeat PET CT on 09/15/24. Pt was seen in clinic on 08/29/24, at which time doppler of LLE was obtained and was noted to be positive for DVT. He was started on Elqiuis start pack. Patient presented to the emergency room for increased confusion and lethargy this morning. Patient has been having increasing weakness over the last 2 weeks and is unable to ambulate at home as well as decreased oral intake. On admit chest x-ray showed low lung volumes with generalized hazy appearance. With small bilateral pleural effusions. CT brain without contrast showing suspected acute/subacute infarct involving the right frontal and right parietal lobes new from 07/18/2024. 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 Primary pancreatic mass not definitively visualized due to extensive fluid in the abdomen. New evidence of suspected emboli with infarcts in both of the kidneys and spleen and possibly the liver. Patient was diagnosed with left lower extremity DVT approximately 2 weeks ago and has been on anticoagulation with Eliquis. Spouse states patient has missed no doses of Eliquis, last dose yesterday evening at 1630. Troponin elevated at 3.41, BNP 1340. Bilirubin, AST and ALT WNL. ALP 195. Creatinine 0.75, GFR greater than 90. WBC 7.0, hemoglobin 12.9, platelets 97,000. At todays visit, pt is complaing of persisting sacral pain and abdominal distention. Pain has been controlled at home with norco and tylenol. Patient and family has decided on comfort care measures. They have spoken with hospice team, and hope to take patient home once their power is restored at their home. Review of Systems 10 point ROS is negative except as stated in the HPI Past Medical History Past Medical History: Cancer, Hyperlipidemia, Hypertension, Osteoarthritis (OA) Additional Past Medical History / Comment(s): torn bicep, positive cologard, pancreatic CA. History of Any Multi-Drug Resistant Organisms: None Reported Past Surgical History: Hernia Repair, Tonsillectomy Additional Past Surgical History / Comment(s): whipple surgery 12/28 Past Anesthesia/Blood Transfusion Reactions: No Reported Reaction Past Psychological History: No Psychological Hx Reported Smoking Status: Never smoker Past Alcohol Use History: None Reported Past Drug Use History: None Reported - Past Family History Mother Family Medical History: No Reported History Medications and Allergies Home Medications Medication Instructions Recorded Confirmed Type Acetaminophen Tab [Tylenol Tab] 1,500 mg PO BID 09/11/24 09/11/24 History Apixaban [Eliquis] 5 mg PO BID 09/11/24 09/11/24 History HYDROcodone/APAP 7.5-325MG [[place] 1 tab PO BID 09/11/24 09/11/24 History 7.5-325] Allergies Allergy/AdvReac Type Severity Reaction Status Date / Time hydrocodone AdvReac jerking/desmond Verified 09/11/24 12:21 lucinations /confusion oxycodone AdvReac jerking/desmond Verified 09/11/24 12:21 lucinations /confusion Physical Exam Vitals: Vital Signs Temp Pulse Resp BP Pulse Ox 09/11/24 13:00 64 12 122/89 93 L 09/11/24 09:32 97.9 F 80 18 126/99 96 Intake and Output 09/11/24 09/11/24 09/11/24 06:59 14:59 22:59 Other: Weight 63.503 kg - Constitutional General appearance: no acute distress - EENT Eyes: anicteric sclerae, EOMI ENT: hearing grossly normal - Respiratory breathing is even and unlabored - Cardiovascular skin warm and dry - Gastrointestinal General gastrointestinal: distended, no tenderness - Musculoskeletal Musculoskeletal: generalized weakness - Psychiatric Psychiatric: A&O x's 3 Results CBC & Chem 7: 09/11/24 10:27 09/11/24 10:27 Labs: Abnormal Lab Results - Last 24 Hours (Table) 09/11/24 09/11/24 09/11/24 Range/Units 10:27 10:27 10:27 RBC 3.61 L (4.40-5.60) 10*6/uL Hgb 12.9 L (13.0-17.0) g/dL Hct 38.6 L (39.6-50.0) % MCV 106.9 H D (80.0-97.0) fL MCH 35.7 H (27.0-32.0) pg Plt Count 97 L D (140-440) 10*3/uL Immature Gran # 0.05 H (0.00-0.04) 10*3/uL Lymphocytes # 0.46 L (0.90-5.00) 10*3/uL Chloride 112 H (98-107) mmol/L Alkaline Phosphatase 195 H (38-126) U/L Troponin I 3.410 H* (0.000-0.034) ng/mL Total Protein 5.2 L (6.3-8.2) g/dL Albumin 2.5 L (3.5-5.0) g/dL Chest x-ray: report reviewed CT scan - abdomen: report reviewed CT Scan - head: report reviewed CT scan - pelvis: report reviewed Assessment and Plan (1) Acute CVA (cerebrovascular accident) Current Visit: Yes Status: Acute Code(s): I63.9 - CEREBRAL INFARCTION, UNSPECIFIED SNOMED Code(s): 781161022 (2) Ascites Current Visit: Yes Status: Acute Code(s): R18.8 - OTHER ASCITES SNOMED Code(s): 580471317 (3) Pancreatic adenocarcinoma Current Visit: Yes Status: Chronic Priority: Medium Code(s): C25.9 - MALIGNANT NEOPLASM OF PANCREAS, UNSPECIFIED SNOMED Code(s): 740312467 (4) NSTEMI (non-ST elevated myocardial infarction) Current Visit: Yes Status: Acute Code(s): I21.4 - NON-ST ELEVATION (NSTEMI) MYOCARDIAL INFARCTION SNOMED Code(s): 76281990 Plan: Confusion, weakness: Presented to the emergency room for increased confusion and lethargy this morning. Patient has been having increasing weakness over the last 2 weeks and is unable to ambulate at home as well as poor oral intake. -CT brain without contrast showing suspected acute/subacute infarct involving the right frontal and right parietal lobes new from 07/18/2024. 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 -IR consulted for therapeutic paracentesis. Will send for fluid analysis to r/o SBP -Ammonia <9. Bilirubin, AST and ALT WNL. ALP 195. Creatinine 0.75, GFR greater than 90. WBC 7.0, hemoglobin 12.9, platelets 97,000. Troponin elevated at 3.41, BNP 1340. Renal/splenic infarct: -CT abdomen pelvis with contrast new evidence of suspected emboli with infarcts in both of the kidneys and spleen and possibly the liver. Patient was diagnosed with left lower extremity DVT approximately 2 weeks ago and has been on anticoagulation with Eliquis. Spouse states patient has missed no doses of Eliquis, last dose was yesterday evening at 1630. -This would be considered Eliquis failure, however, pt has decided to go home with hospice. So it would be reasonable to hold further anticoagulation at this time. Pt/spouse were agreeable to the same Metastatic pancreatic adenocarcinoma -Oncology history as dictated in the HPI - Noted to have oligometastatic lesion to the sacrum that was treated with palliative radiation therapy in 2023 - PET/CT noted recurrence in the sacrum and completed concurrent Xeloda/RT in mid June 2024 - Repeat PET CT was scheduled on 09/15/2024 - CT AP, concerning for progression of disease. Unfortunately patients overall condition has continued to decline with poor performance status. Comfort care me asures were discussed, pt and spouse would like to take pt home with hospice services. Hospice has been consulted We will remain available for any further questions/concerns the patient or family may have
--- NOTE | 2024-09-12 08:46 | US ---
EXAMINATION TYPE: US abdomen limited DATE OF EXAM: 09/12/2024 COMPARISON: CT abdomen and pelvis 09/11/2024 CLINICAL INDICATION: Male, 69 years old with history of assess for ascites; Assess for ascites TECHNIQUE: Grayscale imaging of the abdomen for ascites. FINDINGS: Ascites seen in all four quadrants of the abdomen. Largest pocket is seen in the RLQ. IMPRESSION: Large volume ascites as seen on yesterday's CT. [facility], , 09/12/2024 8:44 AM
--- NOTE | 2024-09-12 12:10 | P.PN ---
Subjective Progress Note Date: 09/12/24 History of Presenting Illness: Patient is a very pleasant 69-year-old male with a past medical history of metastatic pancreatic cancer chronic cancer pain, hypertension, hyperlipidemia, and DVT on anticoagulation with Eliquis. He presented to the hospital via EMS for altered mental status as patient reportedly woke up confused with slurred speech. Patient's reports that since patient diagnosed with DVT in right groin 2 weeks ago he has had a very poor appetite with increased weakness, fatigue, and not gotten out of bed much. Patient reports chronic pain to lower back/sacrum and increased abdominal distention with occasional tenderness, but otherwise denies any complaints including headache, lightheadedness, chest pain, palpitations, or shortness of breath. Upon arrival to our facility, patient underwent evaluation in the emergency department. Vital signs upon arrival show blood pressure 126/99, heart rate 80, respiratory rate 18, temp 97.9 F, and SpO2 of 96% on room air. EKG was completed showing a very low voltage EKG but on review sinus mechanism at 77 bpm and frequent T wave or ST abnormality showing no signs of acute ischemia. Chest x-ray completed showing low lung volumes with generalized hazy appearance likely secondary to atelectasis versus pulmonary edema with small bilateral pleural effusions. New areas of suspected acute/subacute infarcts involving the right frontal and right parietal lobes. 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 Labs completed and reviewed. CBC showing bicytopenia with hemoglobin of 12.9 and platelet count of 97 6.9 and MCH of 35.7. Coagulation profile normal findings. BMP showing elevated chloride of 112 otherwise normal findings. Blood glucose 92. Liver profile showing elevated alkaline phosphatase of 195 otherwise normal findings. Ammonia level was negative at less than 9. Creatinine kinase 68. Troponin was 3.410 and proBNP was 1340. Patient and family discussed with ED physician stating patient no longer wants to receive treatment for his cancer and family requesting consult to hospice. Patient placed on comfort measures only and admitted under our services with consultation to hospice. Oncology evaluated and placed order for consultation to IR for therapeutic paracentesis. Physical exam: Patient seen and fully evaluated at bedside this morning. Family also at bedside. Patient scheduled to undergo therapeutic paracentesis later this afternoon and once stable plan is for discharge home with hospice. Patient denies having any pain or complaints at this time. Discussed plan of care with patient's family members and hospice at bedside. Vital signs reviewed and stable. General: Nontoxic, no distress, Chronically ill-appearing. Emaciated, thin and frail Derm: Skin warm and dry, pallor present Head: Atraumatic, normocephalic and symmetric. Eyes: EOM's intact, no lid lag, and anicteric sclera Mouth: no lip lesions, mucus membranes dry Cardiovascular: regular rate and rhythm with normal S1S2, systolic murmur, positive posterior tibial pulses bilaterally, and cap refill < 2 seconds. Lungs: Respirations even, regular, and unlabored on room air. Lungs CTA bilaterally, no rhonchi, no rales, no wheezing, and no accessory muscle usage. Abdominal: soft, nontender to palpation, no guarding, no appreciable organomegaly Ext: ROM intact. No gross muscle atrophy, no edema, no contractures Neuro: Speech clear, face symmetrical GCS 14 Psych: Alert and oriented to person and place. Confused to time and situation. Appropriate and pleasant affect. Assessment and Plan of Care: Acute CVA NSTEMI Metastatic pancreatic cancer Bicytopenia Abdominal pain/distention secondary to significant ascites and suspected emboli with infarcts to bilateral kidneys, spleen, and liver Chronic lower back/sacral pain secondary to uncontrolled cancer pain Hypertension DVT -Comfort measures only. -Consult placed to hospice -Oncology evaluated and placed order for consultation to IR for therapeutic paracentesis. -Tylenol 650 mg every 4 hours as needed for fever and/or mild pain, [place] 5/325 mg every 4 hours as needed for moderate pain, and Dilaudid 1 mg every 3 hours as needed for severe pain. -Artificial teardrops to bilateral eyes every 2 hours as needed for dry eyes. -Compazine 10 mg IVP every 6 hours as needed for nausea and/or vomiting. - If patient's pain remains uncontrolled, will initiate morphine infusion at that time as needed to maintain patient's comfort. -Ativan 1 mg IVP every 6 hours as needed for agitation or acute anxiety. Patient admitted for comfort measures only with consultation to hospice, plan is for patient to undergo therapeutic paracentesis later today then plan for discharge home with [facility]. Patient was seen independently by Nurse Practitioner. This document was prepared using [employer] dictation software. Please allow for errors in disbursing agent while rare they do occur. Darwin Mckeon NP rendered care for this patient independently, reviewed the findings and plan as documented in the note above and agree with plan. I did not physically speak with or examine the patient on this date. Objective - Vital Signs Vital signs: Vital Signs Temp 97.8 F 09/12/24 08:00 Pulse 74 09/12/24 08:00 Resp 17 09/12/24 08:00 BP 134/88 09/12/24 08:00 Pulse Ox 95 09/12/24 08:00 FiO2 Intake & Output 09/11/24 09/12/24 09/12/24 18:59 06:59 18:59 Weight 63.503 kg - Labs CBC & Chem 7: 09/11/24 10:27 09/11/24 10:27 Labs: Abnormal Lab Results - Last 24 Hours (Table) 09/11/24 09/11/24 09/11/24 Range/Units 10:27 10:27 10:27 RBC 3.61 L (4.40-5.60) 10*6/uL Hgb 12.9 L (13.0-17.0) g/dL Hct 38.6 L (39.6-50.0) % MCV 106.9 H D (80.0-97.0) fL MCH 35.7 H (27.0-32.0) pg Plt Count 97 L D (140-440) 10*3/uL Immature Gran # 0.05 H (0.00-0.04) 10*3/uL Lymphocytes # 0.46 L (0.90-5.00) 10*3/uL Chloride 112 H (98-107) mmol/L Alkaline Phosphatase 195 H (38-126) U/L Troponin I 3.410 H* (0.000-0.034) ng/mL Total Protein 5.2 L (6.3-8.2) g/dL Albumin 2.5 L (3.5-5.0) g/dL
[2024-09-12] MEDS: ZINC OXIDE PASTE (Z-GUARD) 1 APPLIC TOPICAL PRN (13:31)
--- NOTE | 2024-09-12 13:42 | P.DS ---
Providers Date of admission: 09/11/24 12:37 Expected date of discharge: 09/12/24 Attending physician: Kale Ambrose Consults: 09/11/24 16:08 Consult Physician Routine Consulting Provider: Loi Peralta Consult Reason/Comments: metastatic pancreatic cancer Do you want consulting provider notified?: Yes Primary care physician: [facility] Hospital Course: Patient discharged home under care of [facility] services at this time. Discharge Diagnosis: Acute CVA NSTEMI Metastatic pancreatic cancer Bicytopenia Abdominal pain/distention secondary to significant ascites and suspected emboli with infarcts to bilateral kidneys, spleen, and liver Chronic lower back/sacral pain secondary to uncontrolled cancer pain Hypertension DVT Hospital Course: Patient is a very pleasant 69-year-old male with a past medical history of metastatic pancreatic cancer chronic cancer pain, hypertension, hyperlipidemia, and DVT on anticoagulation with Eliquis. He presented to the hospital via EMS for altered mental status as patient reportedly woke up confused with slurred speech. Patient's reports that since patient diagnosed with DVT in right groin 2 weeks ago he has had a very poor appetite with increased weakness, fatigue, and not gotten out of bed much. Patient reports chronic pain to lower back/sacrum and increased abdominal distention with occasional tenderness, but otherwise denies any complaints including headache, lightheadedness, chest pain, palpitations, or shortness of breath. Upon arrival to our facility, patient underwent evaluation in the emergency department. Vital signs upon arrival show blood pressure 126/99, heart rate 80, respiratory rate 18, temp 97.9 F, and SpO2 of 96% on room air. EKG was completed showing a very low voltage EKG but on review sinus mechanism at 77 bpm and frequent T wave or ST abnormality showing no signs of acute ischemia. Chest x-ray completed showing low lung volumes with generalized hazy appearance likely secondary to atelectasis versus pulmonary edema with small bilateral pleural effusions. New areas of suspected acute/subacute infarcts involving the right frontal and right parietal lobes. 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 Labs completed and reviewed. CBC showing bicytopenia with hemoglobin of 12.9 and platelet count of 97 6.9 and MCH of 35.7. Coagulation profile normal findings. BMP showing elevated chloride of 112 otherwise normal findings. Blood glucose 92. Liver profile showing elevated alkaline phosphatase of 195 otherwise normal findings. Ammonia level was negative at less than 9. Creatinine kinase 68. Troponin was 3.410 and proBNP was 1340. Patient and family discussed with ED physician stating patient no longer wants to receive treatment for his cancer and family requesting consult to hospice. Patient placed on comfort measures only and admitted under our services with consultation to hospice. Oncology evaluated and placed order for consultation to IR for therapeutic paracentesis. Patient underwent therapeutic paracentesis with removal of 3.4 L of fluid. All supplies have been delivered to patient's home and hospice states patient is set up for home hospice and requesting discharge at this time. Patient being discharged home with [facility] hospice services via EMS. Physical exam: Vital signs reviewed and stable. General: Nontoxic, no distress, Chronically ill-appearing. Emaciated, thin and frail Derm: Skin warm and dry, pallor present Head: Atraumatic, normocephalic and symmetric. Eyes: EOM's intact, no lid lag, and anicteric sclera Mouth: no lip lesions, mucus membranes dry Cardiovascular: regular rate and rhythm with normal S1S2, systolic murmur, positive posterior tibial pulses bilaterally, and cap refill < 2 seconds. Lungs: Respirations even, regular, and unlabored on room air. Lungs CTA bilaterally, no rhonchi, no rales, no wheezing, and no accessory muscle usage. Abdominal: soft, nontender to palpation, no guarding, no appreciable organomegaly Ext: ROM intact. No gross muscle atrophy, no edema, no contractures Neuro: Speech clear, face symmetrical GCS 14 Psych: Alert and oriented to person and place. Confused to time and situation. Appropriate and pleasant affect. A total of 31 minutes of time were spent preparing this complex discharge summary. Pt was discharged on 09/12/2024 at 1:34 PM Patient was seen independently by Nurse Practitioner. This document was prepared using [employer] dictation software. Please allow for errors in probe operator while rare they do occur. Darwin Mckeon NP rendered care for this patient independently, reviewed the findings and plan as documented in the note above. I did not physically speak with or examine the patient on this date. Plan - Discharge Summary New Discharge Prescriptions: No Action HYDROcodone/APAP 7.5-325MG [[place] 7.5-325] 1 tab PO BID Apixaban [Eliquis] 5 mg PO BID Acetaminophen Tab [Tylenol Tab] 1,500 mg PO BID Discharge Medication List Acetaminophen Tab [Tylenol Tab] 1,500 mg PO BID 09/11/24 [History] Apixaban [Eliquis] 5 mg PO BID 09/11/24 [History] HYDROcodone/APAP 7.5-325MG [[place] 7.5-325] 1 tab PO BID 09/11/24 [History] Follow up Appointment(s)/Referral(s): [facility] [NON-STAFF] - 09/12/24 Discharge Disposition: HOME WITH HOSPICE
[2024-09-12 13:59] VITALS: BP 120/81; PULSE 80; RESP 17; TEMP 97.9
[2024-09-12 20:40] LABS: Appearance,BF Clear (Clear)
[2024-09-12 21:46] LABS: Glucose, BF Source Ascites; Glucose, Body Fluid 91 mg/dL; T. Protein, Body Fluid Source Ascites; Total Protein, Body Fluid 529 mg/dL
--- NOTE | 2024-09-13 10:41 | US ---
EXAMINATION TYPE: US paracentesis abd w/image DATE OF EXAM: 09/12/2024 CLINICAL HISTORY: Ascites and abdominal distention. The procedure was discussed with the patient. The risks, complications, benefits, and alternatives we re discussed and any questions were answered. Informed consent was obtained. The patient was placed supine on the ultrasound table and prepped and draped in the usual sterile fas hion. All elements of maximal barrier technique were utilized. Under ultrasound guidance, access into the right lower quadrant was obtained, via the paracentesis catheter system . Approximately 3.4 liters of straw-colored fluid was removed for diagnostic and therapeutic purposes. The patient was stable throughout the procedure and subsequently returned to floor in stable conditio n. Fluid sent to lab for analysis as requested by ordering physician. IMPRESSION: Successful diagnostic and therapeutic US guided paracentesis as detailed above. [facility], , 09/13/2024 10:38 AM
== END 2024-09-12 19:56 | disposition hospice, home (50) | DRG 64 ==
LOC: EC 09:28 → 4SSUR 12:37 → 5NMEDONC 22:42
PROVIDERS: ADMIT Student in an Organized Health Care Education/Training Program; ATTEND Student in an Organized Health Care Education/Training Program
PROC: 0W9G3ZZ Drainage of Peritoneal Cavity, Percutaneous Approach (ICD-10-PCS; principal; 2024-09-11)
DX: I63.521 Cerebral infarction due to unspecified occlusion or stenosis of right anterior cerebral artery (principal); I21.4 Non-ST elevation (NSTEMI) myocardial infarction; I82.0 Budd-Chiari syndrome; K83.1 Obstruction of bile duct; G93.40 Encephalopathy, unspecified; C78.6 Secondary malignant neoplasm of retroperitoneum and peritoneum; C79.51 Secondary malignant neoplasm of bone; C25.0 Malignant neoplasm of head of pancreas; I74.8 Embolism and thrombosis of other arteries; I10 Essential (primary) hypertension; N28.0 Ischemia and infarction of kidney; R18.8 Other ascites; Z68.1 Body mass index [BMI] 19.9 or less, adult; R62.7 Adult failure to thrive; G89.3 Neoplasm related pain (acute) (chronic); Z51.5 Encounter for palliative care; Z66 Do not resuscitate; R47.81 Slurred speech; R53.1 Weakness; E78.5 Hyperlipidemia, unspecified; Z79.01 Long term (current) use of anticoagulants; Z79.891 Long term (current) use of opiate analgesic; Z79.899 Other long term (current) drug therapy; Z86.718 Personal history of other venous thrombosis and embolism; Z88.5 Allergy status to narcotic agent
CPT/HCPCS: 36415; 49083; 70450; 71046; 74177; 76705; 80053; 80143; 82140; 82550; 82945; 83880; 84157; 84484; 85025; 85610; 85730; 87070; 87075; 87205; 88108; 88305; 88341; 88342; 89050; 93005; 96374; 96376; 99285